=== PATIENT | male | born 1975 | race Caucasian/White ===

== ENCOUNTER 2017-06-08 13:16 | Emergency (ER) | payer BC, SELFPAY ==
[2017-06-08 13:31] VITALS: BP 123/71; PULSE 103; RESP 18; TEMP 37.1; O2SAT 99; BMI 36.5
--- NOTE | 2017-06-08 14:14 | HMH.EDUTC ---
[facility] [place] Disposition Clinical Impression: Laryngitis Disposition: Home, Self-Care Condition on Discharge: Good Instructions: DI for Laryngitis Additional Instructions: * No sign of bacterial infection. Likely viral. Virus can take 7-14 days to run their course * Monitor Temp. FU if fever develops * Encourage fluids, water, gatorade, powerade, pedialyte if infant/toddler/child * warm salt water gargles * warm fluids * sore throat lozenges * humidifier/vaporizer * * Your throat swab was sent for culture. Those results are typically sent to your primary care. Be sure to follow up in 2-3 days if no improvement so they can review those results and treat if necessary. If you don't have primary care, I recommend you get one but in the mean time, you will have to return to a walk in clinic. Referrals: Pearl Sears PA [Primary Care Provider] - (IMMEDIATELY for new or worsening symptoms OR no noticeable improvement over the next 48-72 hours. 911 for difficulty breathing or swallowing.) Forms: Work/School Release Time of Disposition: 14:29 Medical Decision Making Vital Signs: 06/08/17 13:31 Temperature 98.8 F Temperature Source Temporal Artery Scan Pulse Rate [Brachial] 103 H Respiratory Rate 18 Blood Pressure [Right Arm] 123/71 Blood Pressure Mean [Right Arm] 88 Blood Pressure Source [Right Arm] Automatic Cuff 02 Sat by Pulse Oximetry 99 Oxygen Delivery Method Room Air - Lab Data Lab Results 06/08/17 13:37: Strep Scn Rapid Clinic [facility] Orders (Tests/Meds): ORDERS Category Date Time Status Strep Screen Confirmation Stat Micro 06/08/17 13:37 Received - Shya Inquiry Pt receiving controlled substance: No [facility] [place] HPI - General Stated complaint: Sore Throat Time Seen by Provider: 06/08/17 14:05 Mode of Arrival: Ambulatory Source of Information: Patient Limitations: No Limitations Description of Symptoms (Recalled from Triage Doc. by RN): SORE THROAT THAT STARTED YESTERDAY HEENT Symptoms (Recalled from RN notes): Yes Resp Symptoms (Recalled from RN notes): No Skin Symptoms (Recalled from RN notes): No MS Symptoms (Recalled from RN notes): No Functional Status (Recalled from RN notes): NA - History of Present Illness Provider Complaint: c/o hoarse voice. Wokeup hoarse yesterday morning. I couldn't even talk . thinks throat might have felt sore but not really sure . Feels no better although seems to be only minimally hoarse today. Reports he went to work and was trying to talk loud and scream and that is when he noticed the hoarseness again today. Cough drops haven't helped. No known sick contacts. Needs work excuse for today. - Related Data Home Medications Medication Instructions Recorded Confirmed Lisinopril [Lisinopril 10mg Tab] 10 mg PO DAILY 06/08/17 06/08/17 Allergies Allergy/AdvReac Type Severity Reaction Status Date / Time INGREDIENT: NO KNOWN - NO Allergy Unknown Uncoded 05/22/17 14:31 KNOWN DRUG ALLERGY - Worker's Comp Is this a Worker's Comp case?: No [facility] History I have reviewed the patient's past medical history: Yes Medical History: Reports:: Hypertension, Kidney Stones Denies:: Diabetes Mellitus Type 1, Diabetes Mellitus Type 2 Other Surgeries: Yes: Other (unknown type for kidney stones) - *Social History Smoking Status: Current every day smoker Tobacco Type: cigarettes Alcohol Intake: never - Psychiatric History Expresses thoughts of harming self/others: None Suicide Plan Description: No Plan ROS Obtained: Yes Appropriate systems reviewed & no add complaints except as noted - Constitutional Denies anorexia, Denies body ache(s), Denies chills, Denies fatigue, Denies fever(s) - Eyes Denies change in vision, Denies discharge - ENT Reports change in voice, Reports hoarseness, Reports post nasal drip, Reports sore throat, Denies abnormal hearing, Denies dizziness, Denies ear pain, Denies mouth pain, Denies nasal congestion, Denies riki
--- NOTE | 2017-06-08 14:19 | ED_ITS ---
[facility] [place] Disposition Clinical Impression: Laryngitis Disposition: Home, Self-Care Condition on Discharge: Good Instructions: DI for Laryngitis Additional Instructions: * No sign of bacterial infection. Likely viral. Virus can take 7-14 days to run their course * Monitor Temp. FU if fever develops * Encourage fluids, water, gatorade, powerade, pedialyte if infant/toddler/ child * warm salt water gargles * warm fluids * sore throat lozenges * humidifier/vaporizer * * Your throat swab was sent for culture. Those results are typically sent to your primary care. Be sure to follow up in 2-3 days if no improvement so they can review those results and treat if necessary. If you don't have primary care , I recommend you get one but in the mean time, you will have to return to a walk in clinic. Referrals: Pearl Sears PA [Primary Care Provider] - (IMMEDIATELY for new or worsening symptoms OR no noticeable improvement over the next 48-72 hours. 911 for difficulty breathing or swallowing.) Forms: Work/School Release Time of Disposition: 14:29 Medical Decision Making Vital Signs: 06/08/17 13:31 Temperature 98.8 F Temperature Source Temporal Artery Scan Pulse Rate [Brachial] 103 H Respiratory Rate 18 Blood Pressure [Right Arm] 123/71 Blood Pressure Mean [Right Arm] 88 Blood Pressure Source [Right Arm] Automatic Cuff 02 Sat by Pulse Oximetry 99 Oxygen Delivery Method Room Air - Lab Data Lab Results 06/08/17 13:37: Strep Scn Rapid Clinic [facility] Orders (Tests/Meds): ORDERS Category Date Time Status Strep Screen Confirmation Stat Micro 06/08/17 13:37 Received - Shay Inquiry Pt receiving controlled substance: No [facility] [place] HPI - General Stated complaint: Sore Throat Time Seen by Provider: 06/08/17 14:05 Mode of Arrival: Ambulatory Source of Information: Patient Limitations: No Limitations Description of Symptoms (Recalled from Triage Doc. by RN): SORE THROAT THAT STARTED YESTERDAY HEENT Symptoms (Recalled from RN notes): Yes Resp Symptoms (Recalled from RN notes): No Skin Symptoms (Recalled from RN notes): No MS Symptoms (Recalled from RN notes): No Functional Status (Recalled from RN notes): NA - History of Present Illness Provider Complaint: c/o hoarse voice. Wokeup hoarse yesterday morning. I couldn 't even talk . thinks throat might have felt sore but not really sure . Feels no better although seems to be only minimally hoarse today. Reports he went to work and was trying to talk loud and scream and that is when he noticed the hoarseness again today. Cough drops haven't helped. No known sick contacts. Needs work excuse for today. - Related Data Home Medications Medication Instructions Recorded Confirmed Lisinopril [Lisinopril 10mg Tab] 10 mg PO DAILY 06/08/17 06/08/17 Allergies Allergy/AdvReac Type Severity Reaction Status Date / Time INGREDIENT: NO KNOWN - NO Allergy Unknown Uncoded 05/22/17 14:31 KNOWN DRUG ALLERGY - Worker's Comp Is this a Worker's Comp case?: No [facility] History I have reviewed the patient's past medical history: Yes Medical History: Reports:: Hypertension, Kidney Stones Denies:: Diabetes Mellitus Type 1, Diabetes Mellitus Type 2 Other Surgeries: Yes: Other (unknown type for kidney stones) - *Social History Smoking Status: Current every day
== END 2017-06-08 14:31 | disposition home or self-care (01) ==
PROVIDERS: Emergency Provider Nurse Practitioner Family; PCP Physician Assistant
DX: J04.0 Acute laryngitis (principal); Z79.899 Other long term (current) drug therapy; I10 Essential (primary) hypertension; F17.210 Nicotine dependence, cigarettes, uncomplicated
CPT/HCPCS: 87430; 87880; 99202

== ENCOUNTER → 2017-07-30 07:27 | Outpatient (CLI) | payer BC, SELFPAY ==
--- NOTE | 2017-07-30 07:33 | CA_ITS ---
PROCEDURE: 2-D M-mode and color Doppler study INDICATIONS FOR THE TEST: Chest pain COPD Heart Murmur Tobacco SmokingXX Palpitations Fatigue Syncope Edema HypertensionXDiabetes Mellitus Rheumatic Fever SOB LOPEZ ObesityXHyperlipidemia Family History HD Additional History PATIENT INFORMATION HEIGHT: 69 WEIGHT:270 GENDER: Male B/P:170/90 2-D/M-MODE INTERPRETATION: 2-D MEASUREMENTS OBSERVED VALUES IN CMS Right Ventricular Dimension (RVDd) 2.8 Interventricular Septum (Thickness)(IVsd) .8 Left Ventricular Internal Dimensions(LVIDd) 4.8 Left Ventricular Posterior Wall (Thickness)(LVPWd) 1.0 Aortic Root 3.5 Aortic Cusp Separation 1.7 Left Atrial Dimensions (LAD) 2.1 2D 1. Left atrium is qualitatively mildly enlarged, left ventricle is normal size, there is no concentric left ventricular hypertrophy, visually estimated ejection fraction approximately 45% with no obvious regional wall motion abnormality. 2. The right atrium and right ventricle are mildly enlarged with normal contractility. 3. The aortic valve is minimally thickened and fibrosed. 4. The mitral and tricuspid valve leaflets are minimally thickened. 5. The pulmonic valve is poorly visualized. 6. There is trivial pericardial effusion noted. DOPPLER INTERROGATION: Doppler interrogation of the aortic, mitral and tricuspid valvular presence of mild mitral and tricuspid regurgitation, tricuspid regurgitant jet velocity is insufficient for calculation of the right ventricular systolic pressure, grade 1 diastolic dysfunction seen with tissue Doppler evidence of raised left atrial pressure. CONCLUSION: 1. Mild biatrial enlargement, normal left ventricular size, visually estimated ejection fraction of 45% with no obvious regional wall motion abnormality, grade 1 diastolic dysfunction seen with tissue Doppler evidence of raised left atrial pressure. 2. Mildly enlarged right atrium and right ventricle, contractility of the right ventricle is normal. 3. Mild mitral and tricuspid regurgitation 4. Trivial pericardial effusion noted.
[2017-07-30 09:49] LABS: Anion Gap 10.5 mEq/L (5-15); Blood Urea Nitrogen 7 mg/dL (7-18); Carbon Dioxide 33 mmol/L (21.0-32.0); Chloride 102 mmol/L (98-107); Creatinine,Serum 0.91 mg/dL (0.70-1.30); Estimated Glomerular Filt Rate 92 ml/min (>60); GFR (African American) 112 ML/MIN (>60); Glucose 136 mg/dL (74-106); Potassium 4.5 mmoL/L (3.5-5.1); Sodium 141 mmol/L (136-145)
== END ==
PROVIDERS: Family Provider Family Medicine; PCP Physician Assistant; Visit Provider Internal Medicine Cardiovascular Disease
DX: I10 Essential (primary) hypertension (principal); R00.0 Tachycardia, unspecified
CPT/HCPCS: 36415; 80048; 93306

== ENCOUNTER → 2017-10-02 10:54 | Outpatient (CLI) | payer BC, SELFPAY ==
--- NOTE | 2017-10-02 11:17 | XR_ITS ---
XR chest 2V HISTORY: ITS.REASON: Persistent cough ORDERING PHYSICIAN: AIDA Harmon PATIENT AGE: 41 years FINDINGS: The cardiomediastinal silhouette and pulmonary vascularity are within normal limits. No lobar consolidation or collapse is evident. There is an 8 mm opacity in the left perihilar region which may be due to vascular overlap and may be confirmed with follow-up. The remaining lungs are clear. No acute bony anomalies. IMPRESSION: 1. No acute finding. 2. Possible left perihilar nodule versus summation artifact. Consider follow-up radiograph to confirm stability
[2017-10-02 14:08] LABS: Anion Gap 12.5 mEq/L (5-15); Blood Urea Nitrogen 12 mg/dL (7-18); Carbon Dioxide 29 mmol/L (21.0-32.0); Chloride 100 mmol/L (98-107); Creatinine,Serum 0.99 mg/dL (0.70-1.30); Estimated Glomerular Filt Rate 84 ml/min (>60); GFR (African American) 101 ML/MIN (>60); Glucose 147 mg/dL (74-106); Potassium 3.5 mmoL/L (3.5-5.1); Sodium 138 mmol/L (136-145)
== END ==
PROVIDERS: PCP Physician Assistant; Visit Provider Physician Assistant
DX: E87.6 Hypokalemia (principal); R05 Cough
CPT/HCPCS: 71046; 80048

== ENCOUNTER → 2018-01-03 11:44 | Outpatient (CLI) | payer BC, SELFPAY ==
[2018-01-03 14:41] LABS: Blood Urea Nitrogen 10 mg/dL (7-18); Carbon Dioxide 26 mmol/L (21.0-32.0); Chloride 99 mmol/L (98-107); Creatinine,Serum 1.11 mg/dL (0.70-1.30); Estimated Glomerular Filt Rate 73 ml/min (>60); GFR (African American) 88 ML/MIN (>60); Sodium 136 mmol/L (136-145)
[2018-01-03 14:48] LABS: Glucose 418 mg/dL (74-106)
== END ==
PROVIDERS: Family Provider Family Medicine; PCP Physician Assistant; Visit Provider Physician Assistant
DX: R25.2 Cramp and spasm (principal)
CPT/HCPCS: 36415; 80048

== ENCOUNTER → 2018-01-04 15:24 | Outpatient (CLI) | payer BC, SELFPAY ==
[2018-01-04 17:10] LABS: Basophils % 0.4 % (0.1-2.0); Eosinophils # 0.1 K/mm3 (0.0-0.4); Eosinophils % 1.5 % (0.1-12.0); Hematocrit 47.2 % (42.0-52.0); Hemoglobin 15.7 g/dL (14.1-18.0); Mean Corpuscular HGB Conc 33.3 g/dL (31.8-35.4); Mean Corpuscular Hemoglobin 30.7 pg (27.0-31.2); Mean Corpuscular Volume 92.1 fl (80-94); Mean Platelet Volume 10.3 fl (7.4-10.4); Monocytes # 0.6 K/mm3 (0.1-1.0); Monocytes % 6.2 % (1.7-9.3); Neutrophils # 6.4 K/mm3 (1.8-7.8); Neutrophils % 69.9 % (37.0-80.0); Platelet Count 246 K/mm3 (142-424); Red Blood Count 5.13 M/mm3 (4.60-6.20); Red Cell Distribution Width 12.7 % (11.5-17.5); White Blood Count 9.2 K/mm3 (4.8-10.8)
[2018-01-04 17:37] LABS: Alanine Aminotransferase 173 U/L (12-78); Albumin Level 3.9 gm/dL (3.4-5.0); Albumin/Globulin Ratio 1.1 (1.1-1.8); Alkaline Phosphatase 132 U/L (46-116); Anion Gap 11.7 mEq/L (5-15); Aspartate Amino Transferase 133 U/L (15-37); Bilirubin,Total 1.5 mg/dL (0.2-1.0); Blood Urea Nitrogen 10 mg/dL (7-18); Calcium 9.1 mg/dL (8.5-10.1); Carbon Dioxide 26 mmol/L (21.0-32.0); Chloride 97 mmol/L (98-107); Chol/HDL Ratio 8.3 (1-3.5); Cholesterol 158 mg/dL (140-200); Estimated Glomerular Filt Rate 74 ml/min (>60); GFR (African American) 89 ML/MIN (>60); Globulin 3.5 gm/dl (1.3-3.2); HDL Cholesterol 19 mg/dL (27-67); LDL Cholesterol 73 mg/dL (0-130); Potassium 3.7 mmoL/L (3.5-5.1); Sodium 131 mmol/L (136-145); T4 (Thyroxine) 9.9 ug/dl (4.7-13.3); Total Protein,Serum 7.4 gm/dL (6.4-8.2); Triglycerides 330 mg/dL (30-200); VLDL Cholesterol 66 mg/dL (0-40)
[2018-01-04 17:45] LABS: Glucose 467 mg/dL (74-106)
[2018-01-04 18:03] LABS: Hemoglobin A1C 10.2 % (0.0-7.0)
[2018-01-06 16:09] LABS: Hep A Ab, IgM Negative (Negative); Hepatitis B Core Antibody IgM Negative (Negative); Hepatitis B Surface Antigen Negative (Negative)
[2018-01-06 20:32] LABS: Hepatitis C Antibody 0.1 s/co ratio (0.0-0.9); Microalbumin, Urine <3.0 ug/mL (Not Estab.)
== END ==
PROVIDERS: Visit Provider Nurse Practitioner Family
DX: R53.83 Other fatigue (principal); R25.2 Cramp and spasm; E11.9 Type 2 diabetes mellitus without complications; R73.9 Hyperglycemia, unspecified
CPT/HCPCS: 80053; 80061; 80074; 82043; 83036; 84436; 84443; 85025

== ENCOUNTER → 2018-01-10 13:10 | Outpatient (CLI) | payer BC, SELFPAY | PROVIDERS: Family Provider Family Medicine; PCP Physician Assistant; Visit Provider Nurse Practitioner Family | DX: Z71.3 Dietary counseling and surveillance (principal); E11.9 Type 2 diabetes mellitus without complications | CPT/HCPCS: 97802; G0108 ==

== ENCOUNTER → 2018-01-18 11:54 | Outpatient (CLI) | payer BC, SELFPAY ==
[2018-01-18 11:55] LABS: Adenovirus F 40/41, stool Not Detected (NotDetected); Astrovirus Not Detected (NotDetected); Campylobacter Not Detected (NotDetected); Clostridium Difficile A/B, PCR Not Detected (NotDetected); Cryptosporidium Not Detected (NotDetected); Cyclospora Cayetanesis Not Detected (NotDetected); Entamoeba histolytica Not Detected (NotDetected); Enteroaggregative E coli Not Detected (NotDetected); Enteropathogenic E coli Not Detected (NotDetected); Enterotoxigenic E coli Not Detected (NotDetected); Giardia lamblia Not Detected (NotDetected); Norovirus Not Detected (NotDetected); Plesimonas Shigalloides, PCR Not Detected (NotDetected); Rotavirus A Not Detected (NotDetected); Salmonella, PCR Not Detected (NotDetected); Sapovirus Not Detected (NotDetected); Shiga-like toxin E coli Not Detected (NotDetected); Shigella Enterovasive E coli Not Detected (NotDetected); Vibrio Cholerae Not Detected (NotDetected); Vibrio, PCR Not Detected (NotDetected); Yersinia Entercolitica, PCR Not Detected (NotDetected)
== END ==
PROVIDERS: Nurse Practitioner Family; Visit Provider Nurse Practitioner Family
DX: R19.7 Diarrhea, unspecified (principal)
CPT/HCPCS: 87507

== ENCOUNTER → 2018-02-07 10:41 | Outpatient (CLI) | payer BC, SELFPAY ==
--- NOTE | 2018-02-07 10:44 | XR_ITS ---
XR lumbar spine 2-3V Ordering Physician: Kaden Alexander Patient Age: 42 years: Male HISTORY: ITS.REASON: Low back pain . Mid back pain lower back from coughing TECHNIQUE: AP lateral lumbar spine COMPARISON :CT abdomen 09/29/2017 FINDINGS The lumbar vertebral bodies are intact with no compression fracture. No subluxation. The pedicles transverse processes, SI joints appear satisfactory. There is mild narrowing at the L5/S1 level with diffuse mild posterior posterior spurring at L5/S1. The previous CT study from September 2017 showed a modest hard disc to the right at this level which encroaches upon the right recess and right foramen. . Only minimal facet arthropathy at L5/S1, L4/5 noted otherwise. Sacrum unremarkable. IMPRESSION No acute findings on plain film. L5/S1 with Mild degenerative disc space narrowing and mild posterior ridging & spurring most evident to the right at L5/S1. Suggestion Minimal facet arthropathy L5/S1 and L4/5
== END ==
PROVIDERS: PCP Physician Assistant; Visit Provider Nurse Practitioner Family
DX: M54.5 Low back pain (principal)
CPT/HCPCS: 72100

== ENCOUNTER → 2018-04-13 07:21 | Outpatient (CLI) | payer BC, SELFPAY ==
[2018-04-13 08:13] LABS: Basophils % 0.5 % (0.1-2.0); Eosinophils # 0.2 K/mm3 (0.0-0.4); Eosinophils % 1.9 % (0.1-12.0); Hematocrit 45.8 % (42.0-52.0); Hemoglobin 15.7 g/dL (14.1-18.0); Lymphocytes # 1.6 K/mm3 (0.7-4.5); Lymphocytes % 19.4 % (10-50); Mean Corpuscular HGB Conc 34.2 g/dL (31.8-35.4); Mean Corpuscular Hemoglobin 32.2 pg (27.0-31.2); Mean Corpuscular Volume 94.2 fl (80-94); Mean Platelet Volume 8.3 fl (7.4-10.4); Monocytes # 0.5 K/mm3 (0.1-1.0); Monocytes % 6.2 % (1.7-9.3); Neutrophils # 5.8 K/mm3 (1.8-7.8); Neutrophils % 72.1 % (37.0-80.0); Platelet Count 260 K/mm3 (142-424); Red Blood Count 4.87 M/mm3 (4.60-6.20); Red Cell Distribution Width 12.8 % (11.5-17.5)
[2018-04-13 11:26] LABS: Alanine Aminotransferase 53 U/L (12-78); Albumin Level 3.7 gm/dL (3.4-5.0); Albumin/Globulin Ratio 1.1 (1.1-1.8); Alkaline Phosphatase 108 U/L (46-116); Anion Gap 13.1 mEq/L (5-15); Aspartate Amino Transferase 29 U/L (15-37); Bilirubin,Total 1.4 mg/dL (0.2-1.0); Blood Urea Nitrogen 8 mg/dL (7-18); Calcium 8.8 mg/dL (8.5-10.1); Carbon Dioxide 27 mmol/L (21.0-32.0); Chloride 102 mmol/L (98-107); Cholesterol 185 mg/dL (140-200); Creatinine,Serum 0.97 mg/dL (0.70-1.30); Estimated Glomerular Filt Rate 85 ml/min (>60); GFR (African American) 103 ML/MIN (>60); Globulin 3.4 gm/dl (1.3-3.2); Glucose 91 mg/dL (74-106); HDL Cholesterol 37 mg/dL (27-67); LDL Cholesterol 126 mg/dL (0-130); Potassium 4.1 mmoL/L (3.5-5.1); Sodium 138 mmol/L (136-145); T4 (Thyroxine) 10.1 ug/dl (4.7-13.3); Thyroid Stimulating Hormone 1.18 uIU/ml (0.358-3.740); Total Protein,Serum 7.1 gm/dL (6.4-8.2); Triglycerides 108 mg/dL (30-200); VLDL Cholesterol 22 mg/dL (0-40)
[2018-04-13 11:54] LABS: Hemoglobin A1C 5.9 % (0.0-7.0)
[2018-04-15 16:20] LABS: Vitamin D 25 Hydroxy 24.7 ng/mL (30.0-100.0)
== END ==
PROVIDERS: Visit Provider Physician Assistant
DX: E11.9 Type 2 diabetes mellitus without complications (principal); I10 Essential (primary) hypertension
CPT/HCPCS: 36415; 80053; 80061; 82652; 83036; 84436; 84443; 85025

== ENCOUNTER → 2019-02-25 13:34 | Outpatient (CLI) | payer OTHER, SELFPAY ==
[2019-02-25 14:10] LABS: Basophils % 0.3 % (0.1-2.0); Eosinophils # 0.2 K/mm3 (0.0-0.4); Eosinophils % 1.6 % (0.1-12.0); Hematocrit 50.3 % (42.0-52.0); Hemoglobin 15.9 g/dL (14.1-18.0); Lymphocytes # 1.8 K/mm3 (0.7-4.5); Lymphocytes % 18.8 % (10-50); Mean Corpuscular HGB Conc 31.6 g/dL (31.8-35.4); Mean Corpuscular Hemoglobin 30.6 pg (27.0-31.2); Mean Platelet Volume 9.6 fl (7.4-10.4); Monocytes # 0.5 K/mm3 (0.1-1.0); Monocytes % 5.2 % (1.7-9.3); Neutrophils # 7.2 K/mm3 (1.8-7.8); Neutrophils % 74.2 % (37.0-80.0); Platelet Count 292 K/mm3 (142-424); Red Blood Count 5.19 M/mm3 (4.60-6.20); Red Cell Distribution Width 12.6 % (11.5-17.5); White Blood Count 9.7 K/mm3 (4.8-10.8)
[2019-02-25 14:24] LABS: Alanine Aminotransferase 82 U/L (12-78); Albumin Level 3.7 gm/dL (3.4-5.0); Alkaline Phosphatase 132 U/L (46-116); Anion Gap 18.1 mEq/L (5-15); Aspartate Amino Transferase 57 U/L (15-37); Bilirubin,Total 0.8 mg/dL (0.2-1.0); Blood Urea Nitrogen 7 mg/dL (7-18); Calcium 9.1 mg/dL (8.5-10.1); Carbon Dioxide 23 mmol/L (21.0-32.0); Chloride 101 mmol/L (98-107); Chol/HDL Ratio 5.4 (1-3.5); Cholesterol 190 mg/dL (140-200); Creatinine,Serum 0.82 mg/dL (0.70-1.30); Estimated Glomerular Filt Rate 103 ml/min (>60); GFR (African American) 125 ML/MIN (>60); Globulin 3.7 gm/dl (1.3-3.2); Glucose 123 mg/dL (74-106); HDL Cholesterol 35 mg/dL (27-67); LDL Cholesterol 127 mg/dL (0-130); Potassium 4.1 mmoL/L (3.5-5.1); Sodium 138 mmol/L (136-145); T4 (Thyroxine) 8.4 ug/dl (4.7-13.3); Thyroid Stimulating Hormone 1.56 uIU/ml (0.358-3.740); Total Protein,Serum 7.4 gm/dL (6.4-8.2); Triglycerides 138 mg/dL (30-200); VLDL Cholesterol 28 mg/dL (0-40)
[2019-02-25 15:12] LABS: Hemoglobin A1C 6.8 % (0.0-7.0)
[2019-02-26 10:49] LABS: Vitamin D 25 Hydroxy 29.5 ng/mL (30.0-100.0)
[2019-03-01 13:22] LABS: Folate 17.2 ng/mL (>3.0); Vitamin B12 438 pg/mL (232-1245)
== END ==
PROVIDERS: Visit Provider Physician Assistant
DX: E11.9 Type 2 diabetes mellitus without complications (principal); D64.9 Anemia, unspecified
CPT/HCPCS: 80053; 80061; 82607; 82652; 82746; 83036; 84436; 84443; 85025

== ENCOUNTER → 2019-03-05 07:20 | Outpatient (CLI) | payer OTHER, SELFPAY ==
--- NOTE | 2019-03-05 07:27 | US_ITS ---
APPROVED REPORT Exam Type: Ankle to Brachial Index Diamond Wheel Edger: Jasmine Pickens CRT Indications Claudication: Risk Factors Hypertension Pressures/Indices Right Indices Left Indices Brachial 139.00 mmHg Brachial 139.00 mmHg Low Thigh 148.00 mmHg 1.06 Low Thigh 147.00 mmHg 1.06 Calf 148.00 mmHg 1.06 Calf 148.00 mmHg 1.06 Ankle(PT) 169.00 mmHg 1.22 Ankle(PT) 166.00 mmHg 1.19 Ankle(DP) 156.00 mmHg 1.12 Ankle(DP) 163.00 mmHg 1.17 Digit 158.00 mmHg 1.14 Digit 115.00 mmHg 0.83 Findings R ROSA 1.2 L ROSA 1.2 Normal waveforms and pulses. Conclusion Normal appearing resting noninvasive lower extremity arterial study. Electronically signed by : Ibrahima Kraus MD 03/10/2019 19:25:23
== END ==
PROVIDERS: PCP Emergency Medicine; Visit Provider Physician Assistant
DX: M79.671 Pain in right foot (principal); M79.672 Pain in left foot
CPT/HCPCS: 93923

== ENCOUNTER → 2019-03-10 10:31 | Outpatient (POV) | payer OTHER, SELFPAY | PROVIDERS: Visit Provider Specialist | DX: G57.93 Unspecified mononeuropathy of bilateral lower limbs (principal) | CPT/HCPCS: 95886; 95909 ==

== ENCOUNTER → 2019-05-05 16:44 | Outpatient (CLI) | payer OTHER, SELFPAY ==
[2019-05-05 17:21] LABS: Basophils % 0.3 % (0.1-2.0); Eosinophils # 0.3 K/mm3 (0.0-0.4); Hematocrit 47.1 % (42.0-52.0); Lymphocytes # 1.5 K/mm3 (0.7-4.5); Lymphocytes % 16.4 % (10-50); Mean Corpuscular HGB Conc 31.9 g/dL (31.8-35.4); Mean Corpuscular Hemoglobin 30.8 pg (27.0-31.2); Mean Corpuscular Volume 96.5 fl (80-94); Mean Platelet Volume 9.5 fl (7.4-10.4); Monocytes # 0.5 K/mm3 (0.1-1.0); Monocytes % 4.9 % (1.7-9.3); Neutrophils % 75.3 % (37.0-80.0); Platelet Count 275 K/mm3 (142-424); Red Blood Count 4.88 M/mm3 (4.60-6.20); Red Cell Distribution Width 12.5 % (11.5-17.5); White Blood Count 9.3 K/mm3 (4.8-10.8)
[2019-05-05 19:46] LABS: Hemoglobin A1C 7.4 % (0.0-7.0)
[2019-05-05 20:17] LABS: Alanine Aminotransferase 65 U/L (12-78); Albumin Level 3.4 gm/dL (3.4-5.0); Alkaline Phosphatase 142 U/L (46-116); Anion Gap 19.3 mEq/L (5-15); Aspartate Amino Transferase 45 U/L (15-37); Bilirubin,Total 0.7 mg/dL (0.2-1.0); Blood Urea Nitrogen 8 mg/dL (7-18); Calcium 8.6 mg/dL (8.5-10.1); Carbon Dioxide 23 mmol/L (21.0-32.0); Chloride 100 mmol/L (98-107); Cholesterol 184 mg/dL (140-200); Creatinine,Serum 0.92 mg/dL (0.70-1.30); Estimated Glomerular Filt Rate 90 ml/min (>60); GFR (African American) 109 ML/MIN (>60); Globulin 3.3 gm/dl (1.3-3.2); Glucose 233 mg/dL (74-106); Potassium 4.3 mmoL/L (3.5-5.1); Sodium 138 mmol/L (136-145); T4 (Thyroxine) 8.4 ug/dl (4.7-13.3); Thyroid Stimulating Hormone 1.99 uIU/ml (0.358-3.740); Total Protein,Serum 6.7 gm/dL (6.4-8.2); Triglycerides 239 mg/dL (30-200); VLDL Cholesterol 48 mg/dL (0-40)
[2019-05-05 22:34] LABS: Chol/HDL Ratio 5.9 (1-3.5); HDL Cholesterol 31 mg/dL (27-67); LDL Cholesterol 105 mg/dL (0-130)
[2019-05-07 14:10] LABS: Vitamin D 25 Hydroxy 20.6 ng/mL (30.0-100.0)
== END ==
PROVIDERS: Visit Provider Physician Assistant
DX: E11.9 Type 2 diabetes mellitus without complications (principal); E55.9 Vitamin D deficiency, unspecified; Z79.84 Long term (current) use of oral hypoglycemic drugs
CPT/HCPCS: 80053; 80061; 82652; 83036; 84436; 84443; 85025

== ENCOUNTER → 2019-07-31 07:30 | Outpatient (CLI) | payer OTHER, SELFPAY ==
[2019-07-31 08:43] LABS: Basophils # 0.1 K/mm3 (0-0.2); Basophils % 0.5 % (0.1-2.0); Eosinophils # 0.2 K/mm3 (0.0-0.4); Hematocrit 49.1 % (42.0-52.0); Hemoglobin 15.5 g/dL (14.1-18.0); Lymphocytes # 1.9 K/mm3 (0.7-4.5); Lymphocytes % 19.9 % (10-50); Mean Corpuscular HGB Conc 31.5 g/dL (31.8-35.4); Mean Corpuscular Hemoglobin 30.6 pg (27.0-31.2); Mean Platelet Volume 9.1 fl (7.4-10.4); Monocytes # 0.5 K/mm3 (0.1-1.0); Monocytes % 5.2 % (1.7-9.3); Neutrophils # 6.8 K/mm3 (1.8-7.8); Neutrophils % 72.3 % (37.0-80.0); Platelet Count 275 K/mm3 (142-424); Red Blood Count 5.06 M/mm3 (4.60-6.20); White Blood Count 9.4 K/mm3 (4.8-10.8)
[2019-07-31 10:27] LABS: Chloride 101 mmol/L (98-107); Sodium 137 mmol/L (136-145)
[2019-07-31 10:29] LABS: Alanine Aminotransferase 69 U/L (12-78); Aspartate Amino Transferase 46 U/L (17-59); Blood Urea Nitrogen 9 mg/dl (9-20); Estimated Glomerular Filt Rate 106 ml/min (>60); GFR (African American) 128 ML/MIN (>60)
[2019-07-31 10:30] LABS: Albumin Level 4.2 g/dl (3.5-5.0); Albumin/Globulin Ratio 1.4 (1.1-1.8); Alkaline Phosphatase 108 U/L (38-126); Bilirubin,Total 0.9 mg/dl (0.2-1.3); Calcium 9.6 mg/dl (8.4-10.2); Carbon Dioxide 27 mmol/L (22.0-30.0); Chol/HDL Ratio 5.6 (1-3.5); Cholesterol 192 mg/dl (140-200); Globulin 2.9 g/dL (1.3-3.2); Glucose 139 mg/dl (74-100); HDL Cholesterol 34 mg/dl (40-60); Total Protein,Serum 7.1 g/dl (6.3-8.2); Triglycerides 186 mg/dl (30-150); VLDL Cholesterol 37 mg/dL (0-40)
[2019-07-31 10:41] LABS: Direct LDL Cholesterol 136.06 mg/dL (100-129)
[2019-07-31 10:47] LABS: T4 (Thyroxine) 7.7 ug/dl (5.53-11.0)
[2019-07-31 11:00] LABS: Thyroid Stimulating Hormone 1.98 uIU/mL (0.465-4.68)
[2019-07-31 14:16] LABS: Hemoglobin A1C 6.8 % (4.0-6.0)
[2019-08-01 10:18] LABS: Vitamin D 25 Hydroxy 39.9 ng/mL (30.0-100.0)
== END ==
PROVIDERS: Visit Provider Physician Assistant
DX: E11.9 Type 2 diabetes mellitus without complications (principal); Z79.84 Long term (current) use of oral hypoglycemic drugs
CPT/HCPCS: 36415; 80053; 80061; 82652; 83036; 84436; 84443; 85025

== ENCOUNTER → 2019-08-05 14:16 | Outpatient (CLI) | payer OTHER, SELFPAY ==
[2019-08-08 10:31] LABS: Microalbumin, Urine 9.8 ug/mL (Not Estab.)
== END ==
PROVIDERS: Visit Provider Physician Assistant
DX: E11.9 Type 2 diabetes mellitus without complications (principal); Z79.84 Long term (current) use of oral hypoglycemic drugs
CPT/HCPCS: 82043

== ENCOUNTER → 2019-11-27 14:00 | Outpatient (CLI) | payer OTHER, SELFPAY ==
--- NOTE | 2019-11-27 14:00 | MR_ITS ---
PROCEDURE: MR LUMBAR SPINE WO CON CLINICAL INDICATION: LBP COMPARISON: No exams were available for comparison TECHNIQUE: Standard multiplanar multiecho sequences are performed without contrast. 3-D MIP and myelographic images are also rendered and reviewed FINDINGS: There is uniform fat marrow signal hyperintensity. The disc spaces are intact. Spinal cord and conus medullaris is unremarkable. At the L1-2 disc space there is no significant spinal stenosis. At the L2-3 disc space there is no significant spinal stenosis. At the L3-4 disc space there is no significant spinal stenosis. At the L4-5 disc space there is mild facet arthropathy and a broad-based bulging disc producing mild left neural foraminal stenosis. At the L5-S1 disc space there is an eccentric broad-based disc osteophyte complex extending into the right neural foramina and mild facet arthropathy. This produces mild central canal, moderate right neural foraminal and moderate right lateral recess stenosis The paralumbar structures are unremarkable. IMPRESSION: L4-5 and L5-S1 spinal stenosis as described above. Dictated by: Wilfredo Arciniega 11/27/2019 15:12 Electronically signed by Wilfredo Arciniega in [place] 11/27/2019 15:12
== END ==
PROVIDERS: PCP Physician Assistant; Visit Provider Physician Assistant
DX: M51.36 Other intervertebral disc degeneration, lumbar region (principal); M25.78 Osteophyte, vertebrae
CPT/HCPCS: 72148; 76376

== ENCOUNTER → 2019-12-11 08:53 | Outpatient (POV) | payer OTHER, SELFPAY ==
[2019-12-11 09:31] VITALS: BP 139/42; PULSE 80; RESP 18; TEMP 36.8; O2SAT 99; BMI 38.7
--- NOTE | 2019-12-11 09:52 | HMH.PMCON ---
Assessment and Plan (1) Degenerative joint disease (DJD) of lumbar spine Current visit: Yes Status: Chronic Category: Medical Code(s): M47.816 - Spondylosis without myelopathy or radiculopathy, lumbar region (2) Lumbar radiculopathy Current visit: Yes Status: Chronic Category: Medical Code(s): M54.16 - Radiculopathy, lumbar region (3) Facet arthropathy Current visit: Yes Status: Chronic Category: Medical Code(s): M47.819 - Spondylosis without myelopathy or radiculopathy, site unspecified - Assessment and plan all Dx Assessment and Plan for all problems:: We will start the patient with physical therapy. He has not had any recent physical therapy. We will also plan for a lumbar epidural steroid injection at L4-L5. He is not on any anticoagulation therapy. For further discussion of his symptoms, I think it would be beneficial to start the patient on gabapentin 100 mg 1 tablet p.o. daily. We will see the patient back in the clinic after his injection to reassess his symptoms. He has been instructed to contact clinic if he has any concerns before his next appointment. The patient and I specifically discussed risk factors for COVID19. These risks include, but are not limited to age greater than 60, heart or lung disease, diabetes, immunosuppression, and travel. We also discussed NSAIDs may worsen COVID19 infection or symptoms. Patient should not use NSAIDs to treat COVID19 signs or symptoms. Patient was also informed that any type of corticosteroid of any form (oral or injection) will decrease the patient's immune system response and may increase the likelihood of COVID19 infection [address] symptoms[address] Hayes has reviewed this note and agrees with this plan of care. This note was dictated using voice recognition software and make contain errors or omissions. HPI - Data of Consult Patient: new to practice Consult date: 12/11/19 Requesting Physician: Kathrin Kearns APRN Primary Care Provider: AIDA Isaac - Consult Narrative Reason for consult: Low back pain, bilateral leg numbness and tingling History of present illness: Mr. Grimaldo is a 44 year old male who presents today for consultation for low back pain with radiation into his bilateral lower extremities causing numbness and tingling. Patient says he has had this pain for approximately 4 years. 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 Patient says he is wanted to go back to work since losing the job, and is actively seeking employment. Patient says that he attributes much of his pain due to wear and tear on his back from working in the factory for many years. He says his pain is in his mid back with radiation into his bilateral low back with numbness and tingling in his bilateral lower extremities. Patient has not tried physical therapy. He does say that his primary care provider has given him steroid injections in his hips which have proven to give him up to 2 weeks of relief. Does rate his pain a 4 out of 10 today. CC: Kathrin Kearns APRN [facility] History I have reviewed the patient's past medical history: Yes Medical History: Reports:: Diabetes Mellitus Type 2, Gastroesophageal Reflux Disease(GERD), Hyperlipidemia, Hypertension, Kidney Stones Denies:: Cancer, Diabetes Mellitus Type 1, MRSA *Have you ever received a pneumonia vaccine?: Yes *Have you received a flu vaccine this season?: Yes Other Surgeries: Yes: No Previous Surgery, Other Amputation: No Fractures: Yes - *Social History Smoking Status: Never smoker Tobacco Type: cigarettes # Packs/Day (cigarettes): 1 #Yrs smoked (if former smoker): 5 Alcohol Intake: never Alcohol Intake Frequency:: other Substance Use Type: denies use *Occupational Status:: other Housing: house Household Members: family *Travel in the last 8 weeks: None Family Hx:: Unable to obtain Review of Systems - Review of Systems Review of Syst
== END ==
PROVIDERS: PCP Physician Assistant; Visit Provider Clinical Nurse Specialist Family Health
DX: M47.896 Other spondylosis, lumbar region (principal); M54.16 Radiculopathy, lumbar region
CPT/HCPCS: 99202

== ENCOUNTER 2019-12-26 09:12 | Day surgery (SDC) | payer OTHER, SELFPAY ==
[2019-12-26 09:26] VITALS: BP 126/90; PULSE 82; RESP 18; TEMP 36.8; O2SAT 98; BMI 39.9
[2019-12-26 10:16] VITALS: BP 144/93; PULSE 91; RESP 18
--- NOTE | 2019-12-26 10:16 | HMH.PMPROC ---
- Procedure Date: 12/26/19 Time: 10:16 Anesthesiologist:: Paul Hayes MD Complications:: None Pre-procedure Diagnosis:: Degenerative disc disease of lumbar spine with lumbar radiculopathy symptoms Post-procedure Diagnosis:: Same Indications for Procedure:: This patient is a pleasant 44-year-old white male who we are treating for low back pain with lumbar radiculopathy symptoms. He has some increasing low back pain radiating into both hips and both legs. He was started on gabapentin which is helping. He has had some intramuscular steroid injections which is helped in the past. Will do lumbar epidural steroid injection today to see if this will help with his pain symptoms. Procedure Details:: Lumbar epidural steroid injection under fluoroscopy Informed consent was obtained and the risk and benefits of the procedure was explained to the patient. The patient was taken to the procedure room. The patient was placed prone on the procedure table. The patient was prepped and draped in sterile fashion. C-arm fluoroscopy was used to view the lumbar spine. Skin and subcutaneous tissues were anesthetized using lidocaine. I placed an 18-gauge epidural needle and advanced into the L4-L5 interspace using fluoroscopic guidance and [id number] to air. After confirmation of needle placement in the epidural space with dye I injected 2 mL of lidocaine 1.5% with Depo-Medrol 80 mg. Patient tolerated the procedure well with no complications. Plan and Disposition:: We will follow-up with him in 2 weeks. Will reevaluate symptoms at that time.
[2019-12-26 10:18] VITALS: BP 142/85; PULSE 85; RESP 18; O2SAT 98
[2019-12-26 10:28] VITALS: BP 124/74; PULSE 85; RESP 18; O2SAT 98
== END 2019-12-26 10:29 | disposition home or self-care (01) ==
LOC: SC.PAINP 09:13
PROVIDERS: PCP Physician Assistant; Visit Provider Anesthesiology
DX: M51.16 Intervertebral disc disorders with radiculopathy, lumbar region (principal); I10 Essential (primary) hypertension; E11.40 Type 2 diabetes mellitus with diabetic neuropathy, unspecified; Z88.1 Allergy status to other antibiotic agents; Z88.8 Allergy status to other drugs, medicaments and biological substances; Z79.899 Other long term (current) drug therapy
CPT/HCPCS: 62323; J1040; Q9966

== ENCOUNTER 2020-01-07 08:00 | Outpatient (RCR) | payer OTHER, SELFPAY ==
--- NOTE | 2019-12-17 09:43 | HMH.PTOPEV ---
PT Outpatient Evaluation Rehab PT Outpatient Evaluation Start: 12/17/19 08:54 Freq: Status: Active Protocol: Document 12/17/19 09:27 DAWNACHANTELLE (Rec: 12/17/19 09:43 DAWNACHANTELLE [id number]) Electronically Signed By Bryan Stroud PT 12/17/19 09:27 Outpatient Therapy Subjective History Subjective History This is the initial Physical Therapy evaluation for Norman Grimaldo. Pt is a 44 y/o male referred to PT for c/o LBP w/ intermittant bouts of BLE paresthesia. 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 Pt reports this bout began ~ March 2019. Pt reports no traumatic event, just states I was walking straight and my back locked up . Pt reports he has had intermittant pain since then. Pt reprots he has not worked since factory closed down and he is trying to find a job or get disability so he has some income. Chief Complaint Pain,Stiff,Paresthesia Symptom Type Throb,Sharp,Numbness,Tingling Symptoms Relieved By Rest/Positioning,Prescription Meds Symptoms Aggravated By Physical Activity,Lifting Prior Functional Limitations Lifting Current Functional Limitations Lifting,Recreation Activity, Bending/Stooping Symptom Description Intermittent Level of pain today (0-10) 4 Pain scale - at its best (0-10) 0 Pain scale - at its worst (0-10) 6 Lumbopelvic Eval Posture Thoracic Spine Posture Standing Position Increased Kyphosis Lumbar Spine Posture Standing Position Neutral Assistive device Assistive Devices None / NA Gait Observation General Gait Pattern Observation Wide Based Gait Palapation tenderness bilateral thoracic spinal tenderness No lumbar spinal tenderness Yes: PA L4/5 paraspinal tenderness Yes: R>L buttock tenderness No tenderness over symphysis pubis No Lumbar/Sacral Palpation Findings Tenderness,Trigger Point, Muscle Guarding Accessory Movement L-spine Vertebrae Accessory Movements Central P/A [place],Right P/A that Elicit Symptoms [place],Left P/A [place] L4 bilateral L5 bilateral Range of Motion Lumbar Spine Active Flexion Range of 20 c
== END 2020-01-07 09:10 | disposition home or self-care (01) ==
LOC: PT 08:00
PROVIDERS: PCP Physician Assistant; Visit Provider Clinical Nurse Specialist Family Health
DX: M54.5 Low back pain (principal)
CPT/HCPCS: 97010; 97012; 97014; 97110; 97163; G0283

== ENCOUNTER → 2020-01-15 08:29 | Outpatient (POV) | payer OTHER, SELFPAY ==
--- NOTE | 2020-01-15 08:46 | P.CONS_ITS ---
[facility] Pain Management SOAP Note Subjective:: Is a pleasant 44-year-old white male who presents today for follow-up after a lumbar epidural steroid injection. He has been treated for low back pain with lumbar radiculopathy symptoms. Patient states his pain is a 2 out of 10 today. He is much more functional after undergoing the injection. Patient says overall he is doing much better. Review of Systems General: No recent weight changes, no fever, no sleep disturbances Respiratory: No cough, no shortness of air, no recurring pulmonary infections Cardiovascular/peripheral vascular: No chest pain, no palpitations, no edema, no shortness of breath Gastrointestinal: No new onset incontinence, normal bowel movements reported Genitourinary: No new onset incontinence Musculoskeletal: [Intermittent low back pain, intermittent leg pain Psychiatric: Normal mood/affect Neurological: [Denies weakness in extremities], [denies balance issues] Objective:: Physical exam General: Alert and oriented x3, no acute distress, pleasant and cooperative, [on room air] Lungs: Respirations even and unlabored, symmetrical chest expansion Eyes: PERRL Musculoskeletal: Flexion and extension of lumbar spine somewhat guarded secondary to pain, deep tendon reflexes normal, strength in upper and lower extremities [5/5], [abnormal gait noted] Neurological: Speech clear, tool grinding technician equal, no gross sensory deficit Assessment:: Degenerative disc disease lumbar spine with lumbar radiculopathy symptoms Plan:: Overall the patient is doing well. He plans to follow-up with us in 3 months to reassess his symptoms. He has been instructed to contact clinic if he has any concerns before his next appointment. The patient and I specifically discussed risk factors for COVID19. These risks include, but are not limited to age greater than 60, heart or lung disease, diabetes, immunosuppression, and travel. We also discussed NSAIDs may worsen COVID19 infection or symptoms. Patient should not use NSAIDs to treat COVID19 signs or symptoms. Patient was also informed that any type of corticosteroid of any form (oral or injection) will decrease the patient's immune system response and may increase the likelihood of COVID19 infection and symptoms[address]. Hayes has reviewed this note and agrees with this plan of care. This note was dictated using voice recognition software and make contain errors or omissions. [facility] History I have reviewed the patient's past medical history: Yes Medical History: Reports:: Diabetes Mellitus Type 2, Gastroesophageal Reflux Disease(GERD), Hyperlipidemia, Hypertension, Kidney Stones Denies:: Cancer, Diabetes Mellitus Type 1, MRSA, Seizures *Have you ever received a pneumonia vaccine?: No *Have you received a flu vaccine this season?: No Other Medical History: Denies: Blood Transfusion Reaction Other Surgeries: Yes: No Previous Surgery, Other Amputation: No Fractures: Yes - *Social History Smoking Status: Never smoker Tobacco Type: cigarettes # Packs/Day (cigarettes): 1 #Yrs smoked (if former smoker): 5 Alcohol Intake: never Alcohol Intake Frequency:: other Substance Use Type: denies use *Occupational Status:: unemployed Housing: house Household Members: family *Travel in the last 8 weeks: None Family Hx:: Unable to obtain
[2020-01-15 09:42] VITALS: BP 132/78; PULSE 78; RESP 18; O2SAT 99; BMI 38.4
== END ==
PROVIDERS: PCP Physician Assistant; Visit Provider Clinical Nurse Specialist Family Health
DX: M51.16 Intervertebral disc disorders with radiculopathy, lumbar region (principal)
CPT/HCPCS: 99212

== ENCOUNTER → 2020-02-20 07:50 | Outpatient (CLI) | payer OTHER, SELFPAY ==
[2020-02-20 08:44] LABS: Basophils % 0.5 % (0.1-2.0); Eosinophils # 0.1 K/mm3 (0.0-0.4); Eosinophils % 1.7 % (0.1-12.0); Hematocrit 49.6 % (42.0-52.0); Hemoglobin 16.5 g/dL (14.1-18.0); Lymphocytes # 1.6 K/mm3 (0.7-4.5); Lymphocytes % 18.8 % (10-50); Mean Corpuscular HGB Conc 33.3 g/dL (31.8-35.4); Mean Corpuscular Hemoglobin 31.9 pg (27.0-31.2); Mean Corpuscular Volume 95.8 fl (80-94); Mean Platelet Volume 8.3 fl (7.4-10.4); Monocytes # 0.5 K/mm3 (0.1-1.0); Monocytes % 5.9 % (1.7-9.3); Neutrophils # 6.3 K/mm3 (1.8-7.8); Neutrophils % 73.2 % (37.0-80.0); Platelet Count 267 K/mm3 (142-424); Red Blood Count 5.17 M/mm3 (4.60-6.20); Red Cell Distribution Width 13.1 % (11.5-17.5); White Blood Count 8.5 K/mm3 (4.8-10.8)
[2020-02-20 10:00] LABS: Chloride 102 mmol/L (98-107); Potassium 4.3 mmoL/L (3.5-5.1); Sodium 140 mmol/L (136-145)
[2020-02-20 10:02] LABS: Blood Urea Nitrogen 8 mg/dl (9-20); Estimated Glomerular Filt Rate 92 ml/min (>60); GFR (African American) 111 ML/MIN (>60)
[2020-02-20 10:03] LABS: Alanine Aminotransferase 50 U/L (12-78); Albumin Level 4.3 g/dl (3.5-5.0); Albumin/Globulin Ratio 1.5 (1.1-1.8); Alkaline Phosphatase 109 U/L (38-126); Anion Gap 14.3 mEq/L (5-15); Aspartate Amino Transferase 41 U/L (17-59); Bilirubin,Total 1.3 mg/dl (0.2-1.3); Calcium 9.7 mg/dl (8.4-10.2); Carbon Dioxide 28 mmol/L (22.0-30.0); Chol/HDL Ratio 5.2 (1-3.5); Cholesterol 197 mg/dl (140-200); Globulin 2.9 g/dL (1.3-3.2); Glucose 114 mg/dl (74-100); HDL Cholesterol 38 mg/dl (40-60); Total Protein,Serum 7.2 g/dl (6.3-8.2); Triglycerides 182 mg/dl (30-150); VLDL Cholesterol 36 mg/dL (0-40)
[2020-02-20 10:15] LABS: Direct LDL Cholesterol 129.22 mg/dL (100-129)
[2020-02-20 10:17] LABS: T4 (Thyroxine) 9.4 ug/dl (5.53-11.0)
[2020-02-20 10:31] LABS: Thyroid Stimulating Hormone 2.02 uIU/mL (0.465-4.68)
[2020-02-20 10:34] LABS: Hemoglobin A1C 6.1 % (4.0-6.0)
[2020-02-20 10:47] LABS: 25-OH Vitamin D, Total 50.8 ng/mL (30-100)
== END ==
PROVIDERS: Visit Provider Physician Assistant
DX: E11.9 Type 2 diabetes mellitus without complications (principal); E55.9 Vitamin D deficiency, unspecified; E87.6 Hypokalemia; I10 Essential (primary) hypertension; M54.9 Dorsalgia, unspecified
CPT/HCPCS: 36415; 80053; 80061; 82306; 83036; 84436; 84443; 85025

== ENCOUNTER → 2020-04-15 08:46 | Outpatient (POV) | payer OTHER, SELFPAY ==
--- NOTE | 2020-04-15 08:57 | P.CONS_ITS ---
[facility] Pain Management SOAP Note Subjective:: Patient is a Pleasant 44-year-old white male who presents today for follow-up. Patient had a lumbar epidural steroid injection 4 months ago. He still is doing very well he rates his pain a 0 out of 10 he is much more functional he would like to follow-up on an as-needed basis. ROS General: no recent weight change, no fever, no sleep disturbances Respiratory: no cough, no shortness of air, no recurring pulmonary infections Cardiovascular/Peripheral Vascular: No chest pain, No palpitations, no edema, no shortness of breath. Gastrointestinal: no new onset incontinence, normal bowel movements reported Genitourinary: no new onset incontinence Musculoskeletal: Intermittent low back pain Psychiatric: normal mood/ affect Neurological: [denies new onset weakness in extremities], [denies new onset balance issues] Objective:: Physical Exam General: Alert and oriented x3, no acute distress, pleasant and cooperative, [on room air] Lungs: Resps E/U, Symmetrical chest expansion, Eyes: PERRL Musculoskeletal: Flexion and extension of lumbar spine somewhat guarded secondary to pain, deep tendon reflexes normal, strength in upper and lower extremities [5/5], normal gait noted Neurological: speech clear, commutator v ring assembler equal, no gross sensory deficits Assessment:: Degenerative disc disease lumbar spine lumbar radiculopathy Plan:: We will follow up with the patient on as-needed basis he has been instructed to call the office if he has any issues prior to his next appointment. Dr. Hayes has reviewed this note and agrees with this plan of care. This note was dictated using voice recognition software and may contain errors or omissions [facility] History I have reviewed the patient's past medical history: Yes Medical History: Reports:: Diabetes Mellitus Type 2, Gastroesophageal Reflux Disease(GERD), Hyperlipidemia, Hypertension, Kidney Stones Denies:: Cancer, Diabetes Mellitus Type 1, MRSA, Seizures *Have you ever received a pneumonia vaccine?: No *Have you received a flu vaccine this season?: Yes Other Medical History: Denies: Blood Transfusion Reaction Other Surgeries: Yes: No Previous Surgery, Other Amputation: No Fractures: Yes - *Social History Smoking Status: Never smoker Tobacco Type: cigarettes # Packs/Day (cigarettes): 1 #Yrs smoked (if former smoker): 5 Alcohol Intake: never Alcohol Intake Frequency:: other Substance Use Type: denies use *Occupational Status:: other Housing: house Household Members: family *Travel in the last 8 weeks: None Family Hx:: Unable to obtain
[2020-04-15 09:02] VITALS: BP 134/85; PULSE 87; RESP 18; TEMP 36.6; O2SAT 98; BMI 37.3
== END ==
PROVIDERS: PCP Physician Assistant; Visit Provider Clinical Nurse Specialist Family Health
DX: M51.16 Intervertebral disc disorders with radiculopathy, lumbar region (principal)
CPT/HCPCS: 99212

== ENCOUNTER → 2020-05-13 10:27 | Outpatient (POV) | payer OTHER, SELFPAY ==
--- NOTE | 2020-05-13 10:43 | P.CONS_ITS ---
[facility] Pain Management SOAP Note Subjective:: Patient is a 44-year-old white male who presents today for papers to be filled out for his disability. Patient states he has a hearing coming up. I discussed with him that we do not fill out disability papers. At last visit patient had no pain. Patient states that his pain returned yesterday. Patient states that he only has pain when he is lifting things. Patient is asking for stronger medication today I discussed utilizing a steroid to help with his flareup. He is uninterested in pursuing an intervention at this time. ROS General: no recent weight change, no fever, no sleep disturbances Respiratory: no cough, no shortness of air, no recurring pulmonary infections Cardiovascular/Peripheral Vascular: No chest pain, No palpitations, no edema, no shortness of breath. Gastrointestinal: no new onset incontinence, normal bowel movements reported Genitourinary: no new onset incontinence Musculoskeletal: Back pain Psychiatric: normal mood/ affect Neurological: [denies new onset weakness in extremities], [denies new onset balance issues] Objective:: Physical Exam General: Alert and oriented x3, no acute distress, pleasant and cooperative, [on room air] Lungs: Resps E/U, Symmetrical chest expansion, Eyes: PERRL Musculoskeletal: Flexion and extension of lumbar spine somewhat guarded secondary to pain, deep tendon reflexes normal, strength in upper and lower extremities [5/5], [abnormal gait noted] Neurological: speech clear, scheduling coordinator equal, no gross sensory deficits Assessment:: Degenerative disc disease lumbar spine lumbar radiculopathy Plan:: I discussed with the patient that we do not fill out disability paperwork. At this time he states only pain he has is when he is lifting things. Patient was given prednisone 20 mg 1 p.o. twice daily for 5 days. We will follow-up with him in 1 month. I did discuss with him if he would like further interventional treatment since it has worked so well for him in the past this he is welcome to call our office. Dr. Hayes has reviewed this note and agrees with this plan of care. This note was dictated using voice recognition software and may contain errors or omissions [facility] History I have reviewed the patient's past medical history: Yes Medical History: Reports:: Diabetes Mellitus Type 2, Gastroesophageal Reflux Disease(GERD), Hyperlipidemia, Hypertension, Kidney Stones Denies:: Cancer, Diabetes Mellitus Type 1, MRSA, Seizures *Have you ever received a pneumonia vaccine?: Yes *Have you received a flu vaccine this season?: Yes Other Medical History: Denies: Blood Transfusion Reaction Other Surgeries: Yes: No Previous Surgery, Other Amputation: No Fractures: Yes - *Social History Smoking Status: Never smoker Tobacco Type: cigarettes # Packs/Day (cigarettes): 1 #Yrs smoked (if former smoker): 5 Alcohol Intake: never Alcohol Intake Frequency:: other Substance Use Type: denies use *Occupational Status:: other Housing: house Household Members: family *Travel in the last 8 weeks: None Family Hx:: Unable to obtain
[2020-05-13 10:49] VITALS: BP 140/78; PULSE 65; RESP 18; TEMP 36.8; O2SAT 98; BMI 37.3
== END ==
PROVIDERS: PCP Physician Assistant; Visit Provider Clinical Nurse Specialist Family Health
DX: M51.16 Intervertebral disc disorders with radiculopathy, lumbar region (principal)
CPT/HCPCS: 99212

== ENCOUNTER → 2020-06-07 09:33 | Outpatient (POV) | payer OTHER, SELFPAY ==
[2020-06-07 10:13] VITALS: BP 132/85; PULSE 85; RESP 18; O2SAT 98; BMI 35.9
--- NOTE | 2020-06-07 12:06 | HMH.PAINSOAP ---
[facility] Pain Management SOAP Note Subjective:: Is a pleasant 44-year-old white male who presents today for follow-up. 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 We discussed increasing his gabapentin he is currently on gabapentin 100 mg 1 p.o. daily he states that this is beneficial he denies any side effects to his medication. [facility] #[id number] reviewed and appropriate. ROS General: no recent weight change, no fever, no sleep disturbances Respiratory: no cough, no shortness of air, no recurring pulmonary infections Cardiovascular/Peripheral Vascular: No chest pain, No palpitations, no edema, no shortness of breath. Gastrointestinal: no new onset incontinence, normal bowel movements reported Genitourinary: no new onset incontinence Musculoskeletal: Back pain, leg pain Psychiatric: normal mood/ affect Neurological: [denies new onset weakness in extremities], [denies new onset balance issues] Objective:: Physical Exam General: Alert and oriented x3, no acute distress, pleasant and cooperative, [on room air] Lungs: Resps E/U, Symmetrical chest expansion, Eyes: PERRL Musculoskeletal: Flexion and extension of lumbar spine somewhat guarded secondary to pain, deep tendon reflexes normal, strength in upper and lower extremities [5/5], antalgic gait noted Neurological: speech clear, matchbook maker equal, no gross sensory deficits Assessment:: Degenerative disc disease lumbar spine lumbar radiculopathy Plan:: We will increase the patient's gabapentin to 300 mg 1 p.o. 3 times daily. I will follow-up with him in 1 month reassess his symptoms at that time he has been instructed to call the office if he has any issues prior to his next appointment. Dr. Hayes has reviewed this note and agrees with this plan of care. This note was dictated using voice recognition software and may contain errors or omissions [facility] History I have reviewed the patient's past medical history: Yes Medical History: Reports:: Diabetes Mellitus Type 2, Gastroesophageal Reflux Disease(GERD), Hyperlipidemia, Hypertension, Kidney Stones Denies:: Cancer, Diabetes Mellitus Type 1, MRSA, Seizures *Have you ever received a pneumonia vaccine?: Yes *Have you received a flu vaccine this season?: Yes Other Medical History: Denies: Blood Transfusion Reaction Other Surgeries: Yes: No Previous Surgery, Other Amputation: No Fractures: Yes - *Social History Smoking Status: Never smoker Tobacco Type: cigarettes # Packs/Day (cigarettes): 1 #Yrs smoked (if former smoker): 5 Alcohol Intake: never Alcohol Intake Frequency:: other Substance Use Type: denies use *Occupational Status:: other Housing: house Household Members: family *Travel in the last 8 weeks: None Family Hx:: Unable to obtain
== END ==
PROVIDERS: Visit Provider Clinical Nurse Specialist Family Health
DX: M51.16 Intervertebral disc disorders with radiculopathy, lumbar region (principal)
CPT/HCPCS: 99212; G0463

== ENCOUNTER → 2020-06-16 14:28 | Outpatient (CLI) | payer OTHER, SELFPAY ==
[2020-06-16 14:50] LABS: Basophils % 0.4 % (0.1-2.0); Eosinophils # 0.2 K/mm3 (0.0-0.4); Eosinophils % 1.6 % (0.1-12.0); Hematocrit 52.2 % (42.0-52.0); Hemoglobin 17.2 g/dL (14.1-18.0); Lymphocytes % 20.5 % (10-50); Mean Corpuscular HGB Conc 32.9 g/dL (31.8-35.4); Mean Corpuscular Hemoglobin 31.1 pg (27.0-31.2); Mean Corpuscular Volume 94.3 fl (80-94); Mean Platelet Volume 9.4 fl (7.4-10.4); Monocytes # 0.5 K/mm3 (0.1-1.0); Monocytes % 5.6 % (1.7-9.3); Neutrophils # 6.9 K/mm3 (1.8-7.8); Neutrophils % 71.9 % (37.0-80.0); Platelet Count 332 K/mm3 (142-424); Red Blood Count 5.54 M/mm3 (4.60-6.20); Red Cell Distribution Width 13.2 % (11.5-17.5); White Blood Count 9.6 K/mm3 (4.8-10.8)
[2020-06-16 14:50] LABS: Alanine Aminotransferase 59 U/L (12-78); Albumin Level 4.6 g/dl (3.5-5.0); Albumin/Globulin Ratio 1.4 (1.1-1.8); Alkaline Phosphatase 140 U/L (38-126); Anion Gap 13.7 mEq/L (5-15); Aspartate Amino Transferase 52 U/L (17-59); Blood Urea Nitrogen 9 mg/dl (9-20); Calcium 9.9 mg/dl (8.4-10.2); Carbon Dioxide 30 mmol/L (22.0-30.0); Chloride 100 mmol/L (98-107); Chol/HDL Ratio 5.7 (1-3.5); Cholesterol 224 mg/dl (140-200); Estimated Glomerular Filt Rate 92 ml/min (>60); GFR (African American) 111 ML/MIN (>60); Globulin 3.2 g/dL (1.3-3.2); Glucose 124 mg/dl (74-100); HDL Cholesterol 39 mg/dl (40-60); Potassium 4.7 mmoL/L (3.5-5.1); Sodium 139 mmol/L (136-145); Total Protein,Serum 7.8 g/dl (6.3-8.2); Triglycerides 255 mg/dl (30-150); VLDL Cholesterol 51 mg/dL (0-40)
[2020-06-16 15:01] LABS: Direct LDL Cholesterol 138.05 mg/dL (100-129)
[2020-06-16 15:06] LABS: Free T4 (Free Thyroxine) 0.98 ng/dl (0.78-2.19)
[2020-06-16 15:09] LABS: 25-OH Vitamin D, Total 31.1 ng/mL (30-100)
[2020-06-16 15:19] LABS: Thyroid Stimulating Hormone 1.91 uIU/mL (0.465-4.68)
[2020-06-16 15:24] LABS: Hemoglobin A1C 6.6 % (4.0-6.0)
== END ==
PROVIDERS: Visit Provider Physician Assistant
DX: E11.9 Type 2 diabetes mellitus without complications (principal); E55.9 Vitamin D deficiency, unspecified; E87.6 Hypokalemia; Z79.84 Long term (current) use of oral hypoglycemic drugs
CPT/HCPCS: 80053; 80061; 82306; 83036; 84439; 84443; 85025

== ENCOUNTER → 2020-07-12 10:03 | Outpatient (POV) | payer OTHER, SELFPAY ==
[2020-07-12 10:15] VITALS: BP 135/88; PULSE 74; RESP 18; TEMP 36.9; O2SAT 99; BMI 34.8
--- NOTE | 2020-07-12 10:29 | P.CONS_ITS ---
[facility] Pain Management SOAP Note Subjective:: Patient is a pleasant 44-year-old white male who presents today for follow-up. Patient was doing quite well however he is had an increase in pain due to weather. He rates his pain a 10 out of 10. We discussed increasing his gabapentin he has done well with this he is currently on 300 mg 1 p.o. 3 times daily. We discussed adding Celebrex to his regimen. He is interested in moving forward with this. ROS General: no recent weight change, no fever, no sleep disturbances Respiratory: no cough, no shortness of air, no recurring pulmonary infections Cardiovascular/Peripheral Vascular: No chest pain, No palpitations, no edema, no shortness of breath. Gastrointestinal: no new onset incontinence, normal bowel movements reported Genitourinary: no new onset incontinence Musculoskeletal: Back pain Psychiatric: normal mood/ affect Neurological: [denies new onset weakness in extremities], [denies new onset balance issues] Objective:: Physical Exam General: Alert and oriented x3, no acute distress, pleasant and cooperative, [on room air] Lungs: Resps E/U, Symmetrical chest expansion Eyes: PERRL Musculoskeletal: Flexion and extension of lumbar spine somewhat guarded secondary to pain, deep tendon reflexes normal, strength in upper and lower extremities [5/5], antalgic gait noted Neurological: speech clear, concrete bucket loader equal, no gross sensory deficits Assessment:: Degenerative disc disease lumbar spine lumbar radiculopathy Plan:: We will continue his gabapentin 300 mg 1 p.o. 3 times daily and we will add Celebrex 200 mg 1 p.o. daily. I will follow-up with him in 1 month reassess his symptoms at that time he has been instructed to call the office if he has any issues prior to his next appointment. Dr. Hayes has reviewed this note and agrees with this plan of care. This note was dictated using voice recognition software and may contain errors or omissions [facility] History I have reviewed the patient's past medical history: Yes Medical History: Reports:: Diabetes Mellitus Type 2, Gastroesophageal Reflux Disease(GERD), Hyperlipidemia, Hypertension, Kidney Stones Denies:: Cancer, Diabetes Mellitus Type 1, MRSA, Seizures *Have you ever received a pneumonia vaccine?: Yes *Have you received a flu vaccine this season?: Yes Other Medical History: Denies: Blood Transfusion Reaction Other Surgeries: Yes: No Previous Surgery, Other Amputation: No Fractures: Yes - *Social History Smoking Status: Never smoker Tobacco Type: cigarettes # Packs/Day (cigarettes): 1 #Yrs smoked (if former smoker): 5 Alcohol Intake: never Alcohol Intake Frequency:: other Substance Use Type: denies use *Occupational Status:: other Housing: house Household Members: family *Travel in the last 8 weeks: None Family Hx:: Unable to obtain
== END ==
PROVIDERS: PCP Physician Assistant; Visit Provider Clinical Nurse Specialist Family Health
DX: M51.16 Intervertebral disc disorders with radiculopathy, lumbar region (principal)
CPT/HCPCS: 99212; G0463

== ENCOUNTER → 2020-08-09 09:47 | Outpatient (POV) | payer OTHER, SELFPAY ==
[2020-08-09 10:41] VITALS: BP 141/71; PULSE 71; RESP 18; O2SAT 98; BMI 37.6
--- NOTE | 2020-08-09 10:41 | HMH.PAINSOAP ---
[facility] Pain Management SOAP Note Subjective:: Is a pleasant 44-year-old white male who presents today for follow-up and medication refills. Patient was having Celebrex in addition to his gabapentin at the last visit. He states that the Celebrex has helped his pain slightly. However, he is currently taking care of his grandmother who is in hospice care she requires constant help with activities of daily living. Feels this is irritating to his back pain. Currently has increasing numbness and tingling in the right leg. 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 Offered repeat epidural injection, at this time he refuses injection. Shay was reviewed and is appropriate ROS General: no recent weight change, no fever, no sleep disturbances Respiratory: no cough, no shortness of air, no recurring pulmonary infections Cardiovascular/Peripheral Vascular: No chest pain, No palpitations, no edema, no shortness of breath. Gastrointestinal: no new onset incontinence, normal bowel movements reported Genitourinary: no new onset incontinence Musculoskeletal: [Low back pain, right leg numbness] Psychiatric: normal mood/ affect, [denies depression], [denies anxiety] Neurological: [denies new onset weakness in extremities], [denies new onset balance issues] Objective:: Physical Exam General: Alert and oriented x3, no acute distress, pleasant and cooperative, [on room air] Lungs: Resps E/U, Symmetrical chest expansion, [CTA bilateral] Eyes: PERRL Musculoskeletal: Flexion and extension of lumbar spine somewhat guarded secondary to pain, deep tendon reflexes normal, strength in upper and lower extremities [5/5], [abnormal gait noted] Neurological: speech clear, derrick boat lever operator equal, no gross sensory deficits Assessment:: Degenerative disc disease lumbar spine lumbar radiculopathy Plan:: We will increase his gabapentin to 400 mg and we will continue his Celebrex 200 mg 1 p.o. daily we will follow-up with him in 1 month to reassess his symptoms. Dr. Hayes has reviewed this note and agrees with this plan of care. This note was dictated using voice recognition software and may contain errors or omissions [facility] History Medical History: Reports:: Diabetes Mellitus Type 2, Gastroesophageal Reflux Disease(GERD), Hyperlipidemia, Hypertension, Kidney Stones Denies:: Cancer, Diabetes Mellitus Type 1, MRSA, Seizures *Have you ever received a pneumonia vaccine?: Yes *Have you received a flu vaccine this season?: Yes Other Medical History: Denies: Blood Transfusion Reaction Other Surgeries: Yes: No Previous Surgery, Other Amputation: No Fractures: Yes - *Social History Smoking Status: Never smoker Tobacco Type: cigarettes # Packs/Day (cigarettes): 1 #Yrs smoked (if former smoker): 5 Alcohol Intake: never Alcohol Intake Frequency:: other Substance Use Type: denies use *Occupational Status:: other Housing: house Household Members: family *Travel in the last 8 weeks: None Family Hx:: Unable to obtain
== END ==
PROVIDERS: PCP Physician Assistant; Visit Provider Clinical Nurse Specialist Family Health
DX: M51.16 Intervertebral disc disorders with radiculopathy, lumbar region (principal)
CPT/HCPCS: 99212; G0463

== ENCOUNTER → 2020-09-09 09:05 | Outpatient (POV) | payer OTHER, SELFPAY ==
--- NOTE | 2020-09-09 09:40 | P.CONS_ITS ---
[facility] Pain Management SOAP Note Subjective:: Is a pleasant 44-year-old white male who presents today for medication refills. Patient was rates his pain a 10 out of 10 however he states is due to weather. Patient states he is been doing well currently on his Celebrex and gabapentin 400 mg 1 p.o. 3 times daily he denies side effects. [facility] #[id number] reviewed and appropriate. Patient states that after his epidural injection he did have only had short-term relief he is not interested in any injection therapy. ROS General: no recent weight change, no fever, no sleep disturbances Respiratory: no cough, no shortness of air, no recurring pulmonary infections Cardiovascular/Peripheral Vascular: No chest pain, No palpitations, no edema, no shortness of breath. Gastrointestinal: no new onset incontinence, normal bowel movements reported Genitourinary: no new onset incontinence Musculoskeletal: Back pain, leg pain Psychiatric: normal mood/ affect, Neurological: [denies new onset weakness in extremities], [denies new onset balance issues] Objective:: Physical Exam General: Alert and oriented x3, no acute distress, pleasant and cooperative, [on room air] Lungs: Resps E/U, Symmetrical chest expansion, Eyes: PERRL Musculoskeletal: Flexion and extension of lumbar spine somewhat guarded seconda ry to pain, deep tendon reflexes normal, strength in upper and lower extremities [5/5], [abnormal gait noted] Neurological: speech clear, baggagemaster equal, no gross sensory deficits Assessment:: Degenerative disc disease lumbar spine lumbar radiculopathy, back pain Plan:: We will continue his gabapentin 400 mg 1 p.o. 3 times daily and Celebrex 200 mg 1 p.o. daily we will see him back in 3 months reassess his symptoms at that time he has been instructed to call the office if he has any issues prior to next appointment. Dr. Hayes has reviewed this note and agrees with this plan of care. This note was dictated using voice recognition software and may contain errors or omissions [facility] History I have reviewed the patient's past medical history: Yes Medical History: Reports:: Diabetes Mellitus Type 2, Gastroesophageal Reflux Disease(GERD), Hyperlipidemia, Hypertension, Kidney Stones Denies:: Cancer, Diabetes Mellitus Type 1, MRSA, Seizures *Have you ever received a pneumonia vaccine?: No *Have you received a flu vaccine this season?: Yes Other Medical History: Denies: Blood Transfusion Reaction Other Surgeries: Yes: No Previous Surgery, Other Amputation: No Fractures: Yes - *Social History Smoking Status: Never smoker Tobacco Type: cigarettes # Packs/Day (cigarettes): 1 #Yrs smoked (if former smoker): 5 Alcohol Intake: never Alcohol Intake Frequency:: other Substance Use Type: denies use *Occupational Status:: other Housing: house Household Members: family *Travel in the last 8 weeks: None Family Hx:: Cancer, Diabetes
[2020-09-09 09:54] VITALS: BP 142/73; PULSE 68; RESP 18; O2SAT 98; BMI 43.4
== END ==
PROVIDERS: Visit Provider Clinical Nurse Specialist Family Health
DX: M51.16 Intervertebral disc disorders with radiculopathy, lumbar region (principal)
CPT/HCPCS: 99212; G0463

== ENCOUNTER → 2020-12-08 16:42 | Outpatient (CLI) | payer OTHER, SELFPAY ==
[2020-12-08 17:48] LABS: Microalbumin/Creatinine Ratio 3.7
[2020-12-08 17:53] LABS: Creatinine,Urine Random 196 mg/dL (Not Estab.)
== END ==
PROVIDERS: Visit Provider Emergency Medicine
DX: E11.9 Type 2 diabetes mellitus without complications (principal)
CPT/HCPCS: 82043; 82570

== ENCOUNTER → 2020-12-09 08:30 | Outpatient (POV) | payer OTHER, SELFPAY ==
[2020-12-09 08:44] VITALS: BP 128/84; PULSE 75; RESP 18; O2SAT 98; BMI 37.6
--- NOTE | 2020-12-09 09:08 | P.CONS_ITS ---
[facility] Pain Management SOAP Note Subjective:: Patient is a pleasant 45-year-old white male who presents today for follow-up and for medication refills. He has been treated for degenerative disc disease lumbar spine with lumbar radiculopathy symptoms and chronic back pain. Patient is managed with gabapentin 400 mg 1 tablet p.o. 3 times daily and Celebrex 200 mg 1 tablet p.o. daily. He denies any side effects to his medication. He is doing well overall. He rates his pain a 4 out of 10. His Shay and drug screen are appropriate. Review of Systems General: No recent weight changes, no fever, no sleep disturbances Respiratory: No cough, no shortness of air, no recurring pulmonary infections Cardiovascular/peripheral vascular: No chest pain, no palpitations, no edema, no shortness of breath Gastrointestinal: No new onset incontinence, normal bowel movements reported Genitourinary: No new onset incontinence Musculoskeletal: Chronic low back pain Psychiatric: Normal mood/affect Neurological: [Denies weakness in extremities], [denies balance issues] Objective:: Physical exam General: Alert and oriented x3, no acute distress, pleasant and cooperative, [on room air] Lungs: Respirations even and unlabored, symmetrical chest expansion Eyes: PERRL Musculoskeletal: Flexion and extension of [] lumbar spine somewhat guarded secondary to pain, deep tendon reflexes normal, strength in upper and lower extremities [5/5], [abnormal gait noted] Neurological: Speech clear, biomedical repair technician equal, no gross sensory deficit Assessment:: Degenerative disc disease lumbar spine with lumbar radiculopathy symptoms Plan:: We will refill the patient's gabapentin 400 mg 1 tablet 3 times daily. We will also refill his Celebrex 200 mg 1 tablet p.o. daily. Patient will get 3 months of medication and be seen in the clinic in 3 months for reevaluation of symptoms . Risks and benefits of the medication have been explained in detail to the patient. The patient has been advised to consult with his/her primary care provider and pharmacist regarding drug-drug interaction of medications currently prescribed. Patient has been instructed to contact the clinic with any concerns before the next appointment. Dr. Hayes has reviewed this note and agrees with this plan of care. This note was dictated using voice recognition software and make contain errors or omissions. [facility] History I have reviewed the patient's past medical history: Yes Medical History: Reports:: Diabetes Mellitus Type 2, Gastroesophageal Reflux Disease(GERD), Hyperlipidemia, Hypertension, Kidney Stones Denies:: Cancer, Diabetes Mellitus Type 1, MRSA, Seizures *Have you ever received a pneumonia vaccine?: No *Have you received a flu vaccine this season?: Yes Other Medical History: Denies: Blood Transfusion Reaction Other Surgeries: Yes: No Previous Surgery, Other Amputation: No Fractures: Yes - *Social History Smoking Status: Never smoker Tobacco Type: cigarettes # Packs/Day (cigarettes): 1 #Yrs smoked (if former smoker): 5 Alcohol Intake: never Alcohol Intake Frequency:: other Substance Use Type: denies use *Occupational Status:: unemployed Housing: house Household Members: family *Travel in the last 8 weeks: Inside the [place] Family Hx:: Cancer, Diabetes
== END ==
PROVIDERS: Visit Provider Clinical Nurse Specialist Family Health
DX: M51.16 Intervertebral disc disorders with radiculopathy, lumbar region (principal)
CPT/HCPCS: 99212; G0463

== ENCOUNTER 2021-01-21 08:00 | Outpatient (RCR) | payer OTHER, SELFPAY | END 2021-01-21 08:05 | disposition home or self-care (01) | LOC: PT 08:00 | PROVIDERS: Visit Provider Emergency Medicine | DX: M54.5 Low back pain (principal) | CPT/HCPCS: 97012; 97110; 97163; 97164 ==

== ENCOUNTER → 2021-02-28 15:00 | Outpatient (CLI) | payer OTHER, SELFPAY ==
[2021-02-28 15:15] LABS: Chloride 104 mmol/L (98-107)
[2021-02-28 15:16] LABS: Potassium 4.2 mmoL/L (3.5-5.1); Sodium 140 mmol/L (136-145)
[2021-02-28 15:18] LABS: Alanine Aminotransferase 103 U/L (12-78); Anion Gap 15.2 mEq/L (5-15); Aspartate Amino Transferase 88 U/L (17-59); Blood Urea Nitrogen 9 mg/dl (9-20); Carbon Dioxide 25 mmol/L (22.0-30.0); Cholesterol 201 mg/dl (140-200); Estimated Glomerular Filt Rate 146 ml/min (>60); GFR (African American) 177 ML/MIN (>60); Triglycerides 181 mg/dl (30-150); VLDL Cholesterol 36 mg/dL (0-40)
[2021-02-28 15:19] LABS: Albumin Level 4.1 g/dl (3.5-5.0); Albumin/Globulin Ratio 1.5 (1.1-1.8); Alkaline Phosphatase 98 U/L (38-126); Basophils # 0.1 K/mm3 (0-0.2); Basophils % 0.6 % (0.1-2.0); Bilirubin,Total 0.9 mg/dl (0.2-1.3); Calcium 9.4 mg/dl (8.4-10.2); Chol/HDL Ratio 6.7 (1-3.5); Eosinophils # 0.4 K/mm3 (0.0-0.4); Eosinophils % 4.2 % (0.1-12.0); Globulin 2.8 g/dL (1.3-3.2); Glucose 130 mg/dl (74-100); HDL Cholesterol 30 mg/dl (40-60); Hematocrit 48.5 % (42.0-52.0); Hemoglobin 15.5 g/dL (14.1-18.0); Lymphocytes # 1.9 K/mm3 (0.7-4.5); Lymphocytes % 22.4 % (10-50); Mean Corpuscular HGB Conc 32.1 g/dL (31.8-35.4); Mean Corpuscular Hemoglobin 31.2 pg (27.0-31.2); Mean Corpuscular Volume 97.4 fl (80-94); Mean Platelet Volume 9.9 fl (7.4-10.4); Monocytes # 0.5 K/mm3 (0.1-1.0); Monocytes % 5.2 % (1.7-9.3); Neutrophils # 5.9 K/mm3 (1.8-7.8); Neutrophils % 67.8 % (37.0-80.0); Platelet Count 310 K/mm3 (142-424); Red Blood Count 4.98 M/mm3 (4.60-6.20); Red Cell Distribution Width 13.1 % (11.5-17.5); Total Protein,Serum 6.9 g/dl (6.3-8.2); White Blood Count 8.7 K/mm3 (4.8-10.8)
[2021-02-28 15:35] LABS: T4 (Thyroxine) 9.3 ug/dl (5.53-11.0)
[2021-02-28 15:37] LABS: Direct LDL Cholesterol 136.39 mg/dL (100-129)
[2021-02-28 15:49] LABS: Thyroid Stimulating Hormone 1.44 uIU/mL (0.465-4.68)
== END ==
PROVIDERS: Visit Provider Emergency Medicine
DX: E11.9 Type 2 diabetes mellitus without complications (principal); Z79.84 Long term (current) use of oral hypoglycemic drugs; Z79.899 Other long term (current) drug therapy
CPT/HCPCS: 80053; 80061; 83036; 84436; 84443; 85025

== ENCOUNTER → 2021-03-10 08:01 | Outpatient (POV) | payer OTHER, SELFPAY ==
[2021-03-10 08:20] VITALS: BP 104/86; PULSE 89; RESP 18; O2SAT 95; BMI 33.5
--- NOTE | 2021-03-10 08:24 | HMH.PAINSOAP ---
[facility] Pain Management SOAP Note Subjective:: Patient is a 45-year-old white male who presents today for follow-up and medication refills. The patient rates his pain a 10 out of 10 today. He is having pain in his low back and right lower extremity. He has had injective therapy in the clinic which has not given him any relief. He has tried physical therapy for 6 weeks which gave him no relief. We currently manage the patient with Celebrex 200 mg 1 tablet p.o. daily and gabapentin 400 mg 1 tablet p.o. 3 times daily. He gets significant relief with gabapentin. He says that Celebrex helps him as well. He would like to try increasing his gabapentin dose to see if this helps with breakthrough pain throughout the day. Review of Systems General: No recent weight changes, no fever, no sleep disturbances Respiratory: No cough, no shortness of air, no recurring pulmonary infections Cardiovascular/peripheral vascular: No chest pain, no palpitations, no edema, no shortness of breath Gastrointestinal: No new onset incontinence, normal bowel movements reported Genitourinary: No new onset incontinence Musculoskeletal: Low back pain with radiation into right leg and foot Psychiatric: [Normal mood/affect] Neurological: [Denies weakness in extremities], [denies balance issues] Objective:: Physical exam General: Alert and oriented x3, no acute distress, pleasant and cooperative, [on room air] Lungs: Respirations even and unlabored, symmetrical chest expansion Eyes: PERRL Musculoskeletal: Flexion and extension of lumbar [spine] somewhat guarded secondary to pain, strength in upper and lower extremities [5/5], [antalgic gait noted] Neurological: Speech clear, [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 He does have a 10 out of 10 pain today. We will increase the patient's gabapentin 600 mg 1 tablet p.o. 3 times daily. We will continue him on Celebrex. Milligrams 1 tablet p.o. daily. He is having difficulty sleeping at bedtime due to muscle spasms. We will order a low-dose of Flexeril to take at bedtime only. He has been advised to use caution with these medications as they can cause sedative effect. He does understand. He has been advised to contact the clinic if his gabapentin dose causes him any side effects. We will see the patient back in 3 months unless he needs to see us before, for which she can contact the clinic. Risks and benefits of the medication have been explained in detail to the patient. The patient has been advised to consult with his/her primary care provider and pharmacist regarding drug-drug interaction of medications currently prescribed. Patient has been prescribed a controlled substance after being counseled on the medication, medication safety, and possible side effects. [facility] report has been obtained and reviewed prior to prescription and found to be appropriate. Opioid contract was reviewed and signed by the patient, and that they have agreed to all of the terms set forth by our compliance program. Patient has been instructed to contact the clinic with any concerns before the next appointment. Dr. Hayes has reviewed this note and agrees with this plan of care. This note was dictated using voice recognition software and make contain errors or omissions. [facility] History I have reviewed the patient's past medical history: Yes Medical History: Reports:: Diabetes Mellitus Type 2, Gastroesophageal Reflux Disease(GERD), Hyperlipidemia, Hypertension, Kidney Stones Denies:: Cancer, Diabetes Mellitus Type 1, MRSA, Seizures *Have you ever received a pneumonia vaccine?: No *Have you received a flu vaccine this season?: Yes Other Medical History: Denies: Blood Transfusion Reaction Other S
== END ==
PROVIDERS: Visit Provider Clinical Nurse Specialist Family Health
DX: M51.16 Intervertebral disc disorders with radiculopathy, lumbar region (principal)
CPT/HCPCS: 99212; G0463

== ENCOUNTER → 2021-03-11 07:23 | Outpatient (CLI) | payer OTHER, SELFPAY ==
--- NOTE | 2021-03-11 07:30 | US_ITS ---
PROCEDURE: US ABDOMEN LIMITED CLINICAL INDICATION: Ordered Elevated liver enzymes COMPARISON: No exams were available for comparison FINDINGS: PANCREAS: Unremarkable. No obvious mass or abnormal fluid collection. No ductal dilatation LIVER: No focal liver lesions demonstrated. There is overall increased in somewhat coarsened appearing echogenicity consistent with diffuse fatty infiltration.. No intrahepatic biliary ductal dilatation evident. There is appropriate direction of blood flow within a non dilated portal vein RIGHT KIDNEY: Unremarkable. Right kidney measures 9.7 x 4.3 by 7.2 cm and appears sonographically normal. GALLBLADDER: The gallbladder is normal in size and shows a trace amount of biliary sludge near the neck of the gallbladder along the dependent wall. There are no gallstones seen. The common bile duct is normal in caliber. IMPRESSION: Diffuse hepatic steatosis along with minimal biliary sludge as noted Dictated by: Dr. Chinmay Davison MD 03/11/2021 12:11 Dr. Chinmay Davison MD in [place] 03/11/2021 12:11
== END ==
PROVIDERS: PCP Emergency Medicine; Visit Provider Emergency Medicine
DX: R74.8 Abnormal levels of other serum enzymes (principal)
CPT/HCPCS: 76705

== ENCOUNTER → 2021-06-09 08:00 | Outpatient (POV) | payer OTHER, SELFPAY ==
[2021-06-09 08:26] VITALS: BP 140/99; PULSE 79; RESP 20; TEMP 36.6; O2SAT 99; BMI 38.7
--- NOTE | 2021-06-09 09:03 | HMH.PAINSOAP ---
[facility] Pain Management SOAP Note Subjective:: Patient is a 45-year-old white male who presents today for follow-up and medication refills. Patient's pain is a 10 out of 10 today. He is having severe low back pain with radiation into right lower extremity. He has had injective therapy in the clinic which is given him minimal relief. We do have the patient on gabapentin 600 mg 1 tablet p.o. 3 times daily as well as Celebrex. 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 Patient does have tingling in his bilateral lower extremities as well. He denies any bowel or bladder changes. Review of Systems General: No recent weight changes, no fever, no sleep disturbances Respiratory: No cough, no shortness of air, no recurring pulmonary infections Cardiovascular/peripheral vascular: No chest pain, no palpitations, no edema, no shortness of breath Gastrointestinal: No new onset incontinence, normal bowel movements reported Genitourinary: No new onset incontinence Musculoskeletal: Low back pain with radiation into right leg with numbness and tingling Psychiatric: [Normal mood/affect] Neurological: [Denies weakness in extremities], [denies balance issues] Objective:: Physical exam General: Alert and oriented x3, no acute distress, pleasant and cooperative Lungs: Respirations even and unlabored, symmetrical chest expansion Eyes: PERRL Musculoskeletal: Flexion and extension of lumbar [spine] somewhat guarded secondary to pain, [antalgic gait noted] Neurological: Speech clear, no gross sensory deficit Assessment:: Degenerative disc disease lumbar spine with lumbar radiculopathy symptoms Plan:: We will continue patient's gabapentin 600 mg 1 tablet p.o. her acid advisory 3 times daily and Celebrex 200 mg 1 tablet p.o. daily. We will recheck the We will start the patient on tramadol 50 mg 1 tablet p.o. 3 times daily. We will see him back and low back we will see him back in 3 months for further evaluation. He has been advised of high risk of oversedation with medications. We will order the patient Narcan to have available in the event of oversedation. Risks and benefits of the medication have been explained in detail to the patient. The patient does understand the risk of dependence on the medication when given over a prolonged period. Patient has been advised of risks of oversedation with the prescribed medication. Narcan has been offered to the paitent in the event of oversedation. Patient has been advised that a family member should also be educated regarding administration of Narcan. The patient has been advised to consult with his/her primary care provider and pharmacist regarding drug-drug interaction of medications currently prescribed. Patient has been prescribed a controlled substance after being counseled on the medication, medication safety, and possible side effects. [facility] report has been obtained and reviewed prior to prescription and found to be appropriate. Opioid contract was reviewed and signed by the patient, and that they have agreed to all of the terms set forth by our compliance program. Patient has been instructed to contact the clinic with any concerns before the next appointment. Dr. Hayes has reviewed this note and agrees with this plan of care. This note was dictated using voice recognition software and make contain errors or omissions. [facility] History I have reviewed the patient's past medical history: Yes Medical History: Reports:: Diabetes Mellitus Type 2, Gastroesophageal Reflux Disease(GERD), Hyperlipidemia, Hypertension, Kidney Stones Denies:: Cancer, Diabetes Mellitus Type 1, MRSA, Seizures *Have you ever received a pneumonia vaccine?: No *Have you received a flu vaccine this season?: No Other Medical History: Denies: Blood Transfusion Reaction Other Surgeries: Yes: No Previous Surgery, Other Amputation: No Fractures: Yes - *Social History S
== END ==
PROVIDERS: Visit Provider Clinical Nurse Specialist Family Health
DX: M51.16 Intervertebral disc disorders with radiculopathy, lumbar region (principal)
CPT/HCPCS: 99212; G0463

== ENCOUNTER → 2021-07-20 07:32 | Outpatient (CLI) | payer OTHER, SELFPAY ==
[2021-07-20 08:05] LABS: Basophils % 0.3 % (0.1-2.0); Eosinophils # 0.2 K/mm3 (0.0-0.4); Eosinophils % 2.4 % (0.1-12.0); Hematocrit 47.5 % (42.0-52.0); Hemoglobin 15.3 g/dL (14.1-18.0); Lymphocytes # 1.8 K/mm3 (0.7-4.5); Lymphocytes % 17.8 % (10-50); Mean Corpuscular HGB Conc 32.1 g/dL (31.8-35.4); Mean Corpuscular Hemoglobin 30.8 pg (27.0-31.2); Mean Corpuscular Volume 95.7 fl (80-94); Mean Platelet Volume 8.6 fl (7.4-10.4); Monocytes # 0.6 K/mm3 (0.1-1.0); Monocytes % 5.7 % (1.7-9.3); Neutrophils # 7.4 K/mm3 (1.8-7.8); Neutrophils % 73.8 % (37.0-80.0); Platelet Count 286 K/mm3 (142-424); Red Blood Count 4.96 M/mm3 (4.60-6.20); Red Cell Distribution Width 12.6 % (11.5-17.5); White Blood Count 10.1 K/mm3 (4.8-10.8)
[2021-07-20 08:32] LABS: Chloride 101 mmol/L (98-107); Potassium 4.8 mmoL/L (3.5-5.1); Sodium 135 mmol/L (136-145)
[2021-07-20 08:35] LABS: Alanine Aminotransferase 86 U/L (12-78); Albumin Level 4.3 g/dl (3.5-5.0); Albumin/Globulin Ratio 1.5 (1.1-1.8); Alkaline Phosphatase 93 U/L (38-126); Anion Gap 9.8 mEq/L (5-15); Aspartate Amino Transferase 64 U/L (17-59); Bilirubin,Total 1.1 mg/dl (0.2-1.3); Blood Urea Nitrogen 13 mg/dl (9-20); Calcium 8.7 mg/dl (8.4-10.2); Carbon Dioxide 29 mmol/L (22.0-30.0); Cholesterol 209 mg/dl (140-200); Estimated Glomerular Filt Rate 105 ml/min (>60); GFR (African American) 127 ML/MIN (>60); Globulin 2.8 g/dL (1.3-3.2); Glucose 140 mg/dl (74-100); Total Protein,Serum 7.1 g/dl (6.3-8.2); Triglycerides 188 mg/dl (30-150); VLDL Cholesterol 38 mg/dL (0-40)
[2021-07-20 08:36] LABS: HDL Cholesterol 30 mg/dl (40-60)
[2021-07-20 08:47] LABS: Direct LDL Cholesterol 147.48 mg/dL (100-129)
[2021-07-20 08:52] LABS: Free T4 (Free Thyroxine) 0.88 ng/dl (0.78-2.19)
[2021-07-20 09:06] LABS: Thyroid Stimulating Hormone 2.01 uIU/mL (0.465-4.68)
[2021-07-20 09:51] LABS: 25-OH Vitamin D, Total 40.8 ng/mL (30-100)
[2021-07-20 10:09] LABS: Hemoglobin A1C 6.1 % (4.0-6.0)
[2021-07-20 14:16] LABS: Amphetamine/Metha Screen,Urine Negative ng/ml (<1000)
[2021-07-20 14:17] LABS: Barbiturates Screen,Urine Negative ng/ml (<200); Benzodiazepines Screen,Urine Negative ng/ml (<200)
[2021-07-20 14:20] LABS: Cannabinoid Screen,Urine Negative ng/ml (<50); Cocaine Screen,Urine Negative ng/ml (<300)
[2021-07-20 14:21] LABS: Methadone Screen,Urine Negative ng/ml (<300)
[2021-07-20 14:22] LABS: Opiate Screen,Urine Negative ng/ml (<300); Phencyclidine Screen,Urine Negative ng/ml (<25)
== END ==
PROVIDERS: PCP Emergency Medicine; Visit Provider Emergency Medicine
DX: E11.9 Type 2 diabetes mellitus without complications (principal); E03.9 Hypothyroidism, unspecified; R53.83 Other fatigue; K59.00 Constipation, unspecified; E66.9 Obesity, unspecified; Z79.899 Other long term (current) drug therapy; Z68.39 Body mass index [BMI] 39.0-39.9, adult; Z79.84 Long term (current) use of oral hypoglycemic drugs
CPT/HCPCS: 36415; 80053; 80061; 80305; 82306; 83036; 84439; 84443; 85025

== ENCOUNTER → 2021-09-08 08:05 | Outpatient (POV) | payer OTHER, SELFPAY ==
[2021-09-08 08:20] VITALS: BP 123/89; PULSE 70; RESP 20; O2SAT 99; BMI 38.9
--- NOTE | 2021-09-08 08:50 | P.CONS_ITS ---
[facility] Pain Management SOAP Note Subjective:: Patient is a pleasant 45-year-old male who is here for medication refill and follow-up. Patient is currently being treated for degenerative disc disease of lumbar spine with lumbar radiculopathy symptoms. Patient is being managed with gabapentin 600 mg 3 times a day and Celebrex. Patient denies any side effects from the medications. Patient denies any changes to the location and type of pain. Patient states that this is adequately helping manage their pain. Rates pain as 8 out of 10. [facility] number [id number] with an active morphine equivalent 0. Drug screens have been reviewed and appropriate. Review of Systems: General: No recent weight changes, no fever, no sleep disturbances Respiratory: No cough, no shortness of air, no recurring pulmonary infections Cardiovascular/peripheral vascular: No chest pain, no palpitations, no edema, no shortness of breath Gastrointestinal: No new onset incontinence, normal bowel movements reported Genitourinary: No new onset incontinence Musculoskeletal: Low back pain Psychiatric: [Normal mood/affect] Neurological: [Denies weakness in extremities], [denies balance issues] Objective:: Physical Exam: General: Alert and oriented x3, no acute distress, pleasant and cooperative, [on room air] Lungs: Respirations even and unlabored, symmetrical chest expansion Eyes: PERRL Musculoskeletal: Flexion and extension of lumbar [spine] somewhat guarded secondary to pain, [antalgic gait noted] Neurological: Speech clear, no gross sensory deficit Assessment:: Degenerative disc disease of lumbar spine with lumbar radiculopathy symptoms Plan:: We will continue the patient's gabapentin 600 mg 3 times a day and Celebrex 200 mg daily. We will provide the patient with 3 months of refills. We would like to see the patient back in 3 months for follow-up and reevaluation of chronic pain syndrome. Patient has been advised of risks of oversedation with the prescribed medication. Narcan has been offered to the patient in the event of oversedation. Patient has been advised that a family member should also be educated regarding administration of Narcan. Patient has been instructed to contact the clinic with any concerns before the next appointment. Dr. Hayes has reviewed this note and agrees with this plan of care. This note was dictated using voice recognition software and make contain errors or omissions. [facility] History Medical History: Reports:: Diabetes Mellitus Type 2, Gastroesophageal Reflux Disease(GERD), Hyperlipidemia, Hypertension, Kidney Stones Denies:: Cancer, Diabetes Mellitus Type 1, MRSA, Seizures *Have you ever received a pneumonia vaccine?: No *Have you received a flu vaccine this season?: No Other Medical History: Denies: Blood Transfusion Reaction Other Surgeries: Yes: No Previous Surgery, Other Amputation: No Fractures: Yes - *Social History Smoking Status: Never smoker Tobacco Type: cigarettes # Packs/Day (cigarettes): 1 #Yrs smoked (if former smoker): 5 Alcohol Intake: never Alcohol Intake Frequency:: other Substance Use Type: denies use *Occupational Status:: other Housing: house Household Members: family *Travel in the last 8 weeks: None Family Hx:: Cancer, Diabetes
== END ==
PROVIDERS: Visit Provider Student in an Organized Health Care Education/Training Program
DX: M51.16 Intervertebral disc disorders with radiculopathy, lumbar region (principal)
CPT/HCPCS: 99212; G0463

== ENCOUNTER → 2021-12-06 09:19 | Outpatient (POV) | payer OTHER, SELFPAY ==
[2021-12-06 09:37] VITALS: BP 151/97; PULSE 89; RESP 20; TEMP 36.7; O2SAT 99; BMI 35.9
--- NOTE | 2021-12-06 09:50 | HMH.PAINSOAP ---
[facility] Pain Management SOAP Note Subjective:: Patient is a pleasant 46-year-old male who is here for medication refill and follow-up. Patient is currently being treated for degenerative disc disease of lumbar spine with lumbar radiculopathy symptoms. Patient is being managed with gabapentin 600 mg 3 times a day and Celebrex 200 mg daily. Patient denies any side effects from the medications. Patient denies any changes to the location and type of pain. Patient states that this is adequately helping manage their pain. Rates pain as 10 out of 10. [facility] number [id number] with an active morphine equivalent 0. Drug screens have been reviewed and appropriate. 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 He is currently hurting in this area at this time. Denies any loss of bowel or bladder function. He has been using topical creams on his back since yesterday which seems to help. Review of Systems: General: No recent weight changes, no fever, no sleep disturbances Respiratory: No cough, no shortness of air, no recurring pulmonary infections Cardiovascular/peripheral vascular: No chest pain, no palpitations, no edema, no shortness of breath Gastrointestinal: No new onset incontinence, normal bowel movements reported Genitourinary: No new onset incontinence Musculoskeletal: Low back pain Psychiatric: [Normal mood/affect] Neurological: [Denies weakness in extremities], [denies balance issues] Objective:: Physical Exam: General: Alert and oriented x3, no acute distress, pleasant and cooperative Lungs: Respirations even and unlabored, symmetrical chest expansion Eyes: PERRL Musculoskeletal: Flexion and extension of lumbar [spine] somewhat guarded secondary to pain, [antalgic gait noted]; patient is tender to palpation around the right-sided lumbar paraspinous muscles at the level of L1-L3 Neurological: Speech clear, no gross sensory deficit Assessment:: Degenerative disc disease of lumbar spine with lumbar radiculopathy symptoms, myofascial pain Plan:: We will continue the patient's gabapentin 600 mg 3 times a day and Celebrex 200 mg daily. We will provide the patient with 3 months of refills. We would like to see the patient back in 3 months for follow-up and reevaluation of chronic pain syndrome. I will start the patient on prednisone 20 mg twice a day for 5 days and tizanidine 4 mg 3 times a day for 14 days. Patient has been advised of risks of oversedation with the prescribed medication. Narcan has been offered to the patient in the event of oversedation. Patient has been advised that a family member should also be educated regarding administration of Narcan. Patient has been instructed to contact the clinic with any concerns before the next appointment. Dr. Hayes has reviewed this note and agrees with this plan of care. This note was dictated using voice recognition software and make contain errors or omissions. [facility] History Medical History: Reports:: Diabetes Mellitus Type 2, Gastroesophageal Reflux Disease(GERD), Hyperlipidemia, Hypertension, Kidney Stones Denies:: Cancer, Diabetes Mellitus Type 1, MRSA, Seizures *Have you ever received a pneumonia vaccine?: No *Have you received a flu vaccine this season?: Yes Other Medical History: Denies: Blood Transfusion Reaction Other Surgeries: Yes: No Previous Surgery, Other Amputation: No Fractures: Yes - *Social History Smoking Status: Never smoker Tobacco Type: cigarettes # Packs/Day (cigarettes): 1 #Yrs smoked (if former smoker): 5 Alcohol Intake: never Alcohol Intake Frequency:: other Substance Use Type: denies use *Occupational Status:: other Housing: house Household Members: family *Travel in the last 8 weeks: None Family Hx:: Cancer, Diabetes
== END ==
PROVIDERS: Visit Provider Student in an Organized Health Care Education/Training Program
DX: M51.16 Intervertebral disc disorders with radiculopathy, lumbar region (principal); M79.10 Myalgia, unspecified site
CPT/HCPCS: 99212; G0463

== ENCOUNTER → 2021-12-28 06:13 | Outpatient (CLI) | payer OTHER, SELFPAY ==
[2021-12-27 21:37] LABS: Alanine Aminotransferase 40 U/L (12-78); Albumin/Globulin Ratio 1.6 (1.1-1.8); Alkaline Phosphatase 117 U/L (38-126); Anion Gap 11.2 mEq/L (5-15); Aspartate Amino Transferase 38 U/L (17-59); Bilirubin,Total 0.3 mg/dl (0.2-1.3); Blood Urea Nitrogen 10 mg/dl (9-20); Calcium 9.4 mg/dl (8.4-10.2); Carbon Dioxide 29 mmol/L (22.0-30.0); Chloride 102 mmol/L (98-107); Estimated Glomerular Filt Rate 105 ml/min (>60); GFR (African American) 126 ML/MIN (>60); Globulin 2.5 g/dL (1.3-3.2); Glucose 78 mg/dl (74-100); Potassium 4.2 mmoL/L (3.5-5.1); Sodium 138 mmol/L (136-145); Total Protein,Serum 6.5 g/dl (6.3-8.2)
== END ==
PROVIDERS: PCP Family Medicine; Visit Provider Family Medicine
DX: E11.9 Type 2 diabetes mellitus without complications (principal); Z79.84 Long term (current) use of oral hypoglycemic drugs
CPT/HCPCS: 80053

== ENCOUNTER → 2022-03-06 08:12 | Outpatient (POV) | payer OTHER, SELFPAY ==
[2022-03-06 08:37] VITALS: BP 131/97; PULSE 80; RESP 18; TEMP 36.6; O2SAT 98; BMI 34.8
--- NOTE | 2022-03-06 09:00 | A.OFFVIS_ITS ---
[facility] Pain Management SOAP Note Subjective:: Patient is a pleasant 46-year-old male who presents today for medication refill and follow-up. We are currently treating the patient for degenerative disc disease of lumbar spine with lumbar radiculopathy symptoms. Today he rates his pain a 2 out of 10. He states the pain is primarily in his low back that radiates into his bilateral legs. He is currently managed with gabapentin 600 mg 3 times a day and Celebrex 200 mg daily. Patient denies any side effects from these medications. He states these medications adequately help manage his pain. He is requesting refills at today's visit. We had also discussed previously trying tizanidine however he states he did not get this prescription. He is requesting it at today's visit. His Shay is [phone]. Is been reviewed and appropriate. Review of Systems: General: No recent weight changes, no fever, no sleep disturbances Respiratory: No cough, no shortness of air, no recurring pulmonary infections Cardiovascular/peripheral vascular: No chest pain, no palpitations, no edema, no shortness of breath Gastrointestinal: No new onset incontinence, normal bowel movements reported Genitourinary: No new onset incontinence Musculoskeletal: Low back pain, leg pain Psychiatric: [Normal mood/affect] Neurological: [Denies weakness in extremities], [denies balance issues] Objective:: Physical Exam: General: Alert and oriented x3, no acute distress, pleasant and cooperative Lungs: Respirations even and unlabored, symmetrical chest expansion Eyes: PERRL Musculoskeletal: Flexion and extension of lumbar [spine] somewhat guarded secondary to pain, [antalgic gait noted] Neurological: Speech clear, no gross sensory deficit Assessment:: Degenerative disc disease of lumbar spine with lumbar radiculopathy symptoms Plan:: Patient continues to have significant pain in his low back that radiates into his bilateral lower extremities however his current medication regimen works well providing symptom relief. I will refill the patient's gabapentin 600 mg 3 times a day and provide a 3 month supply of this medication. I will also refill his Celebrex and send in tizanidine 4 mg 3 times daily and give a 3-month supply on these medications. Patient will return to clinic in 3 months for reevaluation of symptoms, medication refill and follow-up. Patient has been advised of risks of oversedation with the prescribed medication. Narcan has been offered to the patient in the event of oversedation. Patient has been advised that a family member should also be educated regarding administration of Narcan. Patient has been instructed to contact the clinic with any concerns before the next appointment. Dr. Hayes has reviewed this note and agrees with this plan of care. This note was dictated using voice recognition software and make contain errors or omissions. [facility] Medical History (Updated 02/28/22 @ 15:12 by Lexi Luna) Abnormal ECG Asymptomatic LV dysfunction Back Pain Bilateral foot pain Degeneration of intervertebral disc of lumbar region with osteophyte of lumbar vertebra History of kidney stones Low back pain Lumbar degenerative disc disease Neuroforaminal stenosis of lumbar spine Neuropathic pain Sinus tachycardia Snoring Family History Other Diabetes Social History Smoking Status: Never smoker alcohol intake: never substance use type: denies use current occupational status: unemployed Travel in the last 8 weeks: None household members: family h
== END | disposition home or self-care (01) ==
PROVIDERS: Visit Provider Nurse Practitioner Family
DX: M51.16 Intervertebral disc disorders with radiculopathy, lumbar region (principal); Z79.899 Other long term (current) drug therapy
CPT/HCPCS: 99212; G0463

== ENCOUNTER → 2022-04-05 14:34 | Outpatient (CLI) | payer OTHER, SELFPAY ==
[2022-04-05 19:21] LABS: Basophils # 0.1 K/mm3 (0-0.2); Basophils % 0.4 % (0.1-2.0); Eosinophils # 0.1 K/mm3 (0.0-0.4); Eosinophils % 0.6 % (0.1-12.0); Hematocrit 51.3 % (42.0-52.0); Hemoglobin 16.6 g/dL (14.1-18.0); Lymphocytes % 17.7 % (10-50); Mean Corpuscular HGB Conc 32.4 g/dL (31.8-35.4); Mean Corpuscular Hemoglobin 31.3 pg (27.0-31.2); Mean Corpuscular Volume 96.8 fl (80-94); Mean Platelet Volume 9.5 fl (7.4-10.4); Monocytes # 0.7 K/mm3 (0.1-1.0); Neutrophils # 8.4 K/mm3 (1.8-7.8); Neutrophils % 75.3 % (37.0-80.0); Platelet Count 325 K/mm3 (142-424); White Blood Count 11.2 K/mm3 (4.8-10.8)
[2022-04-05 19:39] LABS: Alanine Aminotransferase 51 U/L (12-78); Albumin Level 4.8 g/dl (3.5-5.0); Albumin/Globulin Ratio 1.6 (1.1-1.8); Alkaline Phosphatase 116 U/L (38-126); Anion Gap 17.6 mEq/L (5-15); Aspartate Amino Transferase 43 U/L (17-59); Bilirubin,Total 1.2 mg/dl (0.2-1.3); Blood Urea Nitrogen 16 mg/dl (9-20); Calcium 10.4 mg/dl (8.4-10.2); Carbon Dioxide 30 mmol/L (22.0-30.0); Chloride 99 mmol/L (98-107); Estimated Glomerular Filt Rate 91 ml/min (>60); GFR (African American) 110 ML/MIN (>60); Glucose 87 mg/dl (74-100); Potassium 4.6 mmoL/L (3.5-5.1); Sodium 142 mmol/L (136-145); Total Protein,Serum 7.8 g/dl (6.3-8.2)
[2022-04-05 20:10] LABS: Thyroid Stimulating Hormone 3.03 uIU/mL (0.465-4.68)
[2022-04-05 20:46] LABS: Hemoglobin A1C 5.5 % (4.0-6.0)
== END ==
PROVIDERS: PCP Nurse Practitioner; Visit Provider Nurse Practitioner
DX: E11.9 Type 2 diabetes mellitus without complications (principal); I10 Essential (primary) hypertension; Z79.84 Long term (current) use of oral hypoglycemic drugs
CPT/HCPCS: 80053; 83036; 84443; 85025

== ENCOUNTER → 2022-06-21 08:06 | Outpatient (POV) | payer OTHER, SELFPAY ==
[2022-06-21 08:24] VITALS: BP 111/87; PULSE 90; RESP 18; O2SAT 98; BMI 37.6
--- NOTE | 2022-06-21 08:42 | EXP.PAIN.SOA ---
[facility] Pain Management SOAP Note Subjective:: Patient is a pleasant 46-year-old male who presents today for medication refill and 3-month follow-up. We are currently treating the patient for degenerative disc disease of lumbar spine with lumbar radiculopathy symptoms. Today he rates his pain a 1 out of 10. Patient denies any new trauma or injury. Patient denies any change location or type of pain he experiences. Patient is currently managed with gabapentin 600 mg 3 times a day and Celebrex 200 mg daily along with tizanidine 4 mg 3 times daily. Patient denies any side effects from these medications. He states these medications do adequately manage his pain symptoms. He is requesting refills at today's visit. His Shay is [phone]. Its been reviewed and appropriate. Review of Systems: General: No recent weight changes, no fever, no sleep disturbances Respiratory: No cough, no shortness of air, no recurring pulmonary infections Cardiovascular/peripheral vascular: No chest pain, no palpitations, no edema, no shortness of breath Gastrointestinal: No new onset incontinence, normal bowel movements reported Genitourinary: No new onset incontinence Musculoskeletal: Low back pain Psychiatric: [Normal mood/affect] Neurological: [Denies weakness in extremities], [denies balance issues] Objective:: Physical Exam: General: Alert and oriented x3, no acute distress, pleasant and cooperative Lungs: Respirations even and unlabored, symmetrical chest expansion Eyes: PERRL Musculoskeletal: Flexion and extension of lumbar [spine] somewhat guarded secondary to pain, [antalgic gait noted] Neurological: Speech clear, no gross sensory deficit ORT score updated with moderate risk Family history of prescription drug abuse Personal history of prescription drug abuse Age 46 Assessment:: Degenerative disc disease of lumbar spine with lumbar radiculopathy symptoms Plan:: Patient continues to experience pain in his low back with radiating symptoms into his lower extremities however he is doing well with his current medication regimen. I will refill his gabapentin 600 mg 3 times a day, tizanidine 4 mg 3 times daily and Celebrex 200 mg daily and provide a 3-month supply of this medication. Patient will return to clinic in 3 months for reevaluation of symptoms, medication refill and follow-up. Patient has been instructed to contact the clinic with any concerns before the next appointment. Dr. Hayes has reviewed this note and agrees with this plan of care. This note was dictated using voice recognition software and make contain errors or omissions. [facility] Disclaimer: The information contained in this section may have been updated after the patient was seen, as this information can be updated by other users. Medical History (Updated 05/30/22 @ 16:31 by Benoit YANEZ MD) Abnormal ECG Asymptomatic LV dysfunction Back Pain Bilateral foot pain Degeneration of intervertebral disc of lumbar region with osteophyte of lumbar vertebra History of kidney stones Low back pain Lumbar degenerative disc disease Neuroforaminal stenosis of lumbar spine Neuropathic pain Primary hypertension Sinus tachycardia Snoring Family History Other Diabetes Social History Smoking Status: Never smoker alcohol intake: never substance use type: denies use current occupational status: employed Travel in the last 8 weeks: None household members: family housing: house caffeine: Yes
== END | disposition home or self-care (01) ==
PROVIDERS: PCP Family Medicine; Visit Provider Nurse Practitioner Family
DX: M51.16 Intervertebral disc disorders with radiculopathy, lumbar region (principal); Z79.899 Other long term (current) drug therapy
CPT/HCPCS: 99212; G0463

== ENCOUNTER → 2022-06-30 10:25 | Outpatient (CLI) | payer OTHER, SELFPAY | PROVIDERS: PCP Family Medicine; Visit Provider Family Medicine | DX: Z20.828 Contact with and (suspected) exposure to other viral communicable diseases (principal) ==

== ENCOUNTER → 2022-07-24 17:15 | Outpatient (CLI) | payer OTHER, SELFPAY | PROVIDERS: Visit Provider Nurse Practitioner Family | DX: M79.671 Pain in right foot (principal); B35.3 Tinea pedis; B95.7 Other staphylococcus as the cause of diseases classified elsewhere | CPT/HCPCS: 87070; 87077; 87186; 87205 ==

== ENCOUNTER → 2022-08-29 16:56 | Outpatient (CLI) | payer OTHER, SELFPAY ==
[2022-08-29 19:43] LABS: Alanine Aminotransferase 58 U/L (12-78); Albumin/Globulin Ratio 1.5 (1.1-1.8); Alkaline Phosphatase 84 U/L (38-126); Aspartate Amino Transferase 42 U/L (17-59); Bilirubin,Total 0.5 mg/dl (0.2-1.3); Blood Urea Nitrogen 11 mg/dl (9-20); Calcium 8.5 mg/dl (8.4-10.2); Carbon Dioxide 26 mmol/L (22.0-30.0); Chloride 102 mmol/L (98-107); Estimated Glomerular Filt Rate 105 ml/min (>60); GFR (African American) 126 ML/MIN (>60); Globulin 2.6 g/dL (1.3-3.2); Glucose 98 mg/dl (74-100); Sodium 137 mmol/L (136-145); Total Protein,Serum 6.6 g/dl (6.3-8.2)
== END ==
PROVIDERS: PCP Family Medicine; Visit Provider Family Medicine
DX: E11.9 Type 2 diabetes mellitus without complications (principal); Z79.84 Long term (current) use of oral hypoglycemic drugs
CPT/HCPCS: 80053

== ENCOUNTER → 2022-09-06 23:18 | Outpatient (CLI) | payer OTHER, SELFPAY ==
[2022-09-06 19:01] LABS: Chol/HDL Ratio 4.3 (1-3.5); Cholesterol 152 mg/dl (140-200); HDL Cholesterol 35 mg/dl (40-60); Triglycerides 116 mg/dl (30-150); VLDL Cholesterol 23 mg/dL (0-40)
[2022-09-06 19:20] LABS: Direct LDL Cholesterol 106.73 mg/dL (100-129)
== END ==
PROVIDERS: PCP Family Medicine; Visit Provider Family Medicine
DX: E78.5 Hyperlipidemia, unspecified (principal)
CPT/HCPCS: 80061

== ENCOUNTER → 2022-09-18 08:02 | Outpatient (POV) | payer OTHER, SELFPAY ==
[2022-09-18 08:37] VITALS: BP 137/81; PULSE 82; RESP 18; O2SAT 98; BMI 34.8
--- NOTE | 2022-09-18 08:48 | A.OFFVIS_ITS ---
[facility] Pain Management SOAP Note Subjective:: Patient is a pleasant 46-year-old male who presents today for medication refill and follow-up. We are currently treating the patient for degenerative disc disease of lumbar spine with lumbar radiculopathy symptoms today he rates his pain a 4 out of 10. Patient denies any new trauma or injury. Patient denies any change location or type of pain he experiences. He does state today that he is experiencing a little bit more pain than normal however he is doing well with his current medications. He is managed with gabapentin 600 mg 3 times a day, Celebrex 200 mg daily and tizanidine 4 mg 3 times a day. Patient denies any side effects from this medication. He is requesting refills today. His Shay is [id number]. Its been reviewed and appropriate. Review of Systems: General: No recent weight changes, no fever, no sleep disturbances Respiratory: No cough, no shortness of air, no recurring pulmonary infections Cardiovascular/peripheral vascular: No chest pain, no palpitations, no edema, no shortness of breath Gastrointestinal: No new onset incontinence, normal bowel movements reported Genitourinary: No new onset incontinence Musculoskeletal: Low back pain Psychiatric: [Normal mood/affect] Neurological: [Denies weakness in extremities], [denies balance issues] Objective:: Physical Exam: General: Alert and oriented x3, no acute distress, pleasant and cooperative Lungs: Respirations even and unlabored, symmetrical chest expansion Eyes: PERRL Musculoskeletal: Flexion and extension of lumbar [spine] somewhat guarded secondary to pain, [antalgic gait noted] Neurological: Speech clear, no gross sensory deficit Assessment:: Degenerative disc disease of lumbar spine with lumbar radiculopathy symptoms Plan:: Patient is doing well with his current medication regimen. I will refill his gabapentin 600 mg 3 times a day, Celebrex 200 mg daily and tizanidine 4 mg 3 times a day and provide a 3-month supply of this medication. Patient will return to clinic in 3 months for reevaluation of symptoms, medication refill and follow-up. Patient has been instructed to contact the clinic with any concerns before the next appointment. Dr. Hayes has reviewed this note and agrees with this plan of care. This note was dictated using voice recognition software and make contain errors or omissions. [facility] Disclaimer: The information contained in this section may have been updated after the patient was seen, as this information can be updated by other users. Medical History (Updated 09/05/22 @ 15:51 by Benoit YANEZ MD) Abnormal ECG Asymptomatic LV dysfunction Back Pain Bilateral foot pain Degeneration of intervertebral disc of lumbar region with osteophyte of lumbar vertebra Dyslipidemia Encounter for immunization History of kidney stones Injury of finger of right hand Low back pain Lumbar degenerative disc disease Neuroforaminal stenosis of lumbar spine Neuropathic pain Primary hypertension Sinus tachycardia Snoring Wrist pain, left Family History Other Diabetes Social History Smoking Status: Never smoker alcohol intake: never substance use type: denies use current occupational status: employed Travel in the last 8 weeks: None household members: family housing: house caffeine: Yes
== END | disposition home or self-care (01) ==
PROVIDERS: PCP Family Medicine; Visit Provider Nurse Practitioner Family
DX: M51.16 Intervertebral disc disorders with radiculopathy, lumbar region (principal)
CPT/HCPCS: 99212; G0463

== ENCOUNTER → 2022-12-18 10:02 | Outpatient (POV) | payer OTHER, SELFPAY ==
--- NOTE | 2022-12-18 10:11 | A.OFFVIS_ITS ---
[facility] Pain Management SOAP Note Subjective:: Patient is a pleasant 47-year-old male who presents today for 3-month follow-up and medication refill. We are currently treating the patient for degenerative disc disease of the lumbar spine with lumbar radiculopathy symptoms. Today he rates his pain an 8 out of 10. Patient denies any new trauma or injury. Patient denies any change location or type of pain he experiences. He is currently managed with gabapentin 600 mg 3 times a day, Celebrex 200 mg daily and tizanidine 4 mg 3 times a day. He denies any side effects from this medication. His Shay is [id number]. Its been reviewed and appropriate. Review of Systems: General: No recent weight changes, no fever, no sleep disturbances Respiratory: No cough, no shortness of air, no recurring pulmonary infections Cardiovascular/peripheral vascular: No chest pain, no palpitations, no edema, no shortness of breath Gastrointestinal: No new onset incontinence, normal bowel movements reported Genitourinary: No new onset incontinence Musculoskeletal: Low back pain Psychiatric: [Normal mood/affect] Neurological: [Denies weakness in extremities], [denies balance issues] Objective:: Physical Exam: General: Alert and oriented x3, no acute distress, pleasant and cooperative Lungs: Respirations even and unlabored, symmetrical chest expansion Eyes: PERRL Musculoskeletal: Flexion and extension of lumbar [spine] somewhat guarded secondary to pain, [antalgic gait noted] Neurological: Speech clear, no gross sensory deficit Assessment:: Degenerative disc disease of lumbar spine with lumbar radiculopathy symptoms Plan:: I will refill the patient's gabapentin 600 mg 3 times a day, Celebrex 200 mg daily and tizanidine 4 mg 3 times a day and provide a 3-month supply of this medication. Patient will return to clinic in 3 months for reevaluation of symptoms and medication refill. Patient has been instructed to contact the clinic with any concerns before the next appointment. Dr. Hayes has reviewed this note and agrees with this plan of care. This note was dictated using voice recognition software and make contain errors or omissions. [facility] Disclaimer: The information contained in this section may have been updated after the patient was seen, as this information can be updated by other users. Medical History Abnormal ECG Asymptomatic LV dysfunction Back Pain Bilateral foot pain Degeneration of intervertebral disc of lumbar region with osteophyte of lumbar vertebra Dyslipidemia Encounter for immunization History of kidney stones Injury of finger of right hand S69.91XD SUBSEQUENT Low back pain Lumbar degenerative disc disease Neuroforaminal stenosis of lumbar spine Neuropathic pain Primary hypertension Sinus tachycardia Snoring Wrist pain, left Family History Other Diabetes Social History Smoking Status: Never smoker alcohol intake: never substance use type: denies use current occupational status: employed Travel in the last 8 weeks: None household members: family housing: house caffeine: Yes
[2022-12-18 10:42] VITALS: BP 104/69; PULSE 74; RESP 18; O2SAT 97; BMI 37.6
== END | disposition home or self-care (01) ==
PROVIDERS: PCP Family Medicine; Visit Provider Nurse Practitioner Family
DX: M51.16 Intervertebral disc disorders with radiculopathy, lumbar region (principal)
CPT/HCPCS: 99212; G0463

== ENCOUNTER → 2023-02-02 23:20 | Outpatient (CLI) | payer OTHER, SELFPAY ==
[2023-02-02 19:26] LABS: Basophils % 0.4 % (0.1-2.0); Eosinophils # 0.3 K/mm3 (0.0-0.4); Eosinophils % 3.1 % (0.1-12.0); Hemoglobin 15.3 g/dL (14.1-18.0); Lymphocytes # 1.7 K/mm3 (0.7-4.5); Lymphocytes % 20.7 % (10-50); Mean Corpuscular HGB Conc 31.9 g/dL (31.8-35.4); Mean Platelet Volume 10.5 fl (7.4-10.4); Monocytes # 0.5 K/mm3 (0.1-1.0); Monocytes % 6.3 % (1.7-9.3); Neutrophils # 5.6 K/mm3 (1.8-7.8); Neutrophils % 69.5 % (37.0-80.0); Platelet Count 239 K/mm3 (142-424); Red Blood Count 4.95 M/mm3 (4.60-6.20); Red Cell Distribution Width 12.9 % (11.5-17.5); White Blood Count 8.1 K/mm3 (4.8-10.8)
[2023-02-02 19:33] LABS: Alanine Aminotransferase 75 U/L (12-78); Albumin Level 4.5 g/dl (3.5-5.0); Albumin/Globulin Ratio 1.6 (1.1-1.8); Alkaline Phosphatase 97 U/L (38-126); Anion Gap 16.2 mEq/L (5-15); Aspartate Amino Transferase 61 U/L (17-59); Bilirubin,Total 1.2 mg/dl (0.2-1.3); Blood Urea Nitrogen 17 mg/dl (9-20); Calcium 9.1 mg/dl (8.4-10.2); Carbon Dioxide 28 mmol/L (22.0-30.0); Chloride 99 mmol/L (98-107); Chol/HDL Ratio 5.4 (1-3.5); Cholesterol 172 mg/dl (140-200); Estimated Glomerular Filt Rate 72 ml/min (>60); GFR (African American) 87 ML/MIN (>60); Globulin 2.9 g/dL (1.3-3.2); Glucose 92 mg/dl (74-100); HDL Cholesterol 32 mg/dl (40-60); Potassium 4.2 mmoL/L (3.5-5.1); Sodium 139 mmol/L (136-145); Total Protein,Serum 7.4 g/dl (6.3-8.2); Triglycerides 145 mg/dl (30-150); VLDL Cholesterol 29 mg/dL (0-40)
[2023-02-02 19:44] LABS: Direct LDL Cholesterol 106.21 mg/dL (100-129)
[2023-02-02 20:04] LABS: Prostate Specific Ag Screen 0.6 ng/ml (0.0-4.0)
== END ==
PROVIDERS: PCP Family Medicine; Visit Provider Family Medicine
DX: Z12.5 Encounter for screening for malignant neoplasm of prostate (principal); E78.5 Hyperlipidemia, unspecified; E11.9 Type 2 diabetes mellitus without complications
CPT/HCPCS: 80053; 80061; 85025; G0103

== ENCOUNTER → 2023-03-21 09:55 | Outpatient (POV) | payer OTHER, SELFPAY ==
--- NOTE | 2023-03-21 10:58 | A.OFFVIS_ITS ---
[facility] Pain Management SOAP Note Subjective:: Patient is a pleasant 47-year-old male who presents today for medication refill and follow-up. We are currently treating the patient for degenerative disc disease of lumbar spine with lumbar radiculopathy symptoms. Today he does rate his pain a 10 out of 10. Patient denies any new trauma or injury. He does state that today is a bad day and that he is starting to experience more leg cramps that are worse at night. He states that it is all in his lower calves and that frequently he has to get up in the middle of the night and walk around to have relief. Patient is currently managed with gabapentin 600 mg 3 times a day, Celebrex 200 mg daily and tizanidine 4 mg 3 times a day. He denies any side effects from this medication. His Shay is [id number]. Its been reviewed and appropriate. Review of Systems: General: No recent weight changes, no fever, no sleep disturbances Respiratory: No cough, no shortness of air, no recurring pulmonary infections Cardiovascular/peripheral vascular: No chest pain, no palpitations, no edema, no shortness of breath Gastrointestinal: No new onset incontinence, normal bowel movements reported Genitourinary: No new onset incontinence Musculoskeletal: Low back pain, bilateral leg spasms Psychiatric: [Normal mood/affect] Neurological: [Denies weakness in extremities], [denies balance issues] Objective:: Physical Exam: General: Alert and oriented x3, no acute distress, pleasant and cooperative Lungs: Respirations even and unlabored, symmetrical chest expansion Eyes: PERRL Musculoskeletal: Flexion and extension of lumbar [spine] somewhat guarded secondary to pain, [antalgic gait noted] Neurological: Speech clear, no gross sensory deficit Assessment:: Degenerative disc disease of lumbar spine with lumbar radiculopathy symptoms, restless leg syndrome Plan:: I will refill the patient's current medication regimen of 600 mg gabapentin 3 times a day, Celebrex 200 mg daily and tizanidine 4 mg 3 times a day and provide a 1 month supply of this medication. I will also order the patient ropinirole 0.25 mg at bedtime and provide a 1 month supply of this medication. Patient will return to clinic in 1 month for reevaluation and plan of care. Patient has been instructed to contact the clinic with any concerns before the next appointment. Dr. Hayes has reviewed this note and agrees with this plan of care. This note was dictated using voice recognition software and make contain errors or omissions. [facility] Disclaimer: The information contained in this section may have been updated after the patient was seen, as this information can be updated by other users. Medical History Abnormal ECG Asymptomatic LV dysfunction Back Pain Bilateral foot pain Degeneration of intervertebral disc of lumbar region with osteophyte of lumbar vertebra Dyslipidemia Encounter for immunization History of kidney stones Injury of finger of right hand S69.91XD SUBSEQUENT Low back pain Lumbar degenerative disc disease Neuroforaminal stenosis of lumbar spine Neuropathic pain Primary hypertension Sinus tachycardia Snoring Wrist pain, left Family History Other Diabetes Social History Smoking Status: Never smoker alcohol intake: never substance use type: denies use current occupational status: employed Travel in the last 8 weeks: None household members: family housing: house caffeine: Yes
[2023-03-21 12:45] VITALS: BP 146/86; PULSE 85; RESP 18; O2SAT 97; BMI 37.6
== END | disposition home or self-care (01) ==
PROVIDERS: PCP Family Medicine; Visit Provider Nurse Practitioner Family
DX: M51.16 Intervertebral disc disorders with radiculopathy, lumbar region (principal); G25.81 Restless legs syndrome
CPT/HCPCS: 99212; G0463

== ENCOUNTER → 2023-04-18 09:30 | Outpatient (POV) | payer OTHER, SELFPAY ==
[2023-04-18 09:41] VITALS: BP 130/68; PULSE 85; RESP 18; O2SAT 95; BMI 38.0
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
== END | disposition home or self-care (01) ==
PROVIDERS: PCP Family Medicine; Visit Provider Nurse Practitioner Family
DX: M51.16 Intervertebral disc disorders with radiculopathy, lumbar region (principal)
CPT/HCPCS: 99212; G0463

== ENCOUNTER → 2023-04-18 10:08 | Outpatient (CLI) | payer OTHER, SELFPAY ==
--- NOTE | 2023-04-18 10:13 | XR_ITS ---
FINAL REPORT CLINICAL HISTORY: PAIN FINDINGS: LUMBAR SPINE Five views demonstrate no acute fracture. There is mild disc space narrowing at L5-S1. There is no malalignment. IMPRESSION: No acute process. Reviewed, Interpreted and Dictated by Jeff Dillon MD Transcribed by Purnima Gonsales Authenticated and [facility]
== END ==
PROVIDERS: PCP Family Medicine; Visit Provider Anesthesiology
DX: M54.50 Low back pain, unspecified (principal)
CPT/HCPCS: 72110

== ENCOUNTER 2023-04-29 15:11 | Emergency (ER) | payer OTHER, SELFPAY ==
[2023-04-29 15:50] VITALS: BP 134/91; PULSE 91; RESP 19; TEMP 36.8; O2SAT 97; BMI 38.3
--- NOTE | 2023-04-29 16:16 | EXP.UTC ---
Discharge Plan Disposition Patient Disposition: Home, Self-Care Condition: Good Prescriptions Prescriptions: New benzonatate 100 mg capsule 100 mg PO TID PRN (Reason: cough) Qty: 30 0RF azithromycin [Zithromax Z-Beltran] 250 mg tablet See Rx Instructions .ROUTE .COMPLEX 5 Days Qty: 6 0RF Rx Instructions: For 250 mg dose pack: take 500 mg today (day 1), then 250 mg for 4 days (days 2-5) No Action ezetimibe 10 mg tablet 10 mg PO DAILY Qty: 90 2RF glipizide 2.5 mg tablet extended release 24hr See Rx Instructions .ROUTE .COMPLEX Rx Instructions: Take 1 tablet by mouth once daily for Diabetes lisinopril 5 mg tablet 5 mg PO DAILY metformin 500 mg tablet See Rx Instructions .ROUTE .COMPLEX Rx Instructions: Take 1 Tablet by mouth twice daily for diabetes. ropinirole 0.25 mg tablet 0.25 mg PO HS Qty: 30 0RF Rx Instructions: administer 1-3 hours before bedtime celecoxib 200 MG capsule 200 mg PO DAILY Qty: 30 2RF gabapentin 600 MG tablet 600 mg PO TID Qty: 90 2RF tizanidine [Zanaflex] 4 mg tablet 4 mg PO TID Qty: 90 2RF Referrals Follow up/Referrals: Manju Laboy MD [Primary Care Provider] - See instructions Activity Restrictions/Add. Instructions Additional Instructions/Restrictions: *Monitor Temp, Over the counter Motrin or Tylenol as directed/as needed Tylenol every 4 hours and Motrin every 6 hours (as long as your family doctor has told you that you can take it) for fever or pain. and straight to ER if unable to lower temp less than 101.0 after medication given *Warm salt water gargles may help to soothe the throat *Throat Lozenges? *Warm fluids like tea with honey may help to soothe the throat? *Sleep elevated *Humidifier/Vaporizer *Flonase 2 sprays in each nostril daily but be aware that it may take 2-3 days before you notice improvement Follow up IMMEDIATELY for new or worsening symptoms or no Noticeable improvement over the next 48-72 hours. 911 for difficulty breathing or swallowing Clinical Impressions Clinical Impression: Sinusitis Qualifiers: Sinusitis location: unspecified location Chronicity: unspecified Qualified Code(s): J32.9 - Chronic sinusitis, unspecified Instructions Patient Instructions: DI for Sinusitis, Sinusitis Discharge ED Provider: Phylicia Waite [facility] H[place] General Stated complaint: congestion,cough,sneezing Mode of Arrival: Ambulatory Source of Information: Patient Limitations: No Limitations Time Seen by Provider: 04/29/23 16:16 Description of Symptoms (Recalled from Triage Doc. by RN): PATIENT C/O SINUS PRESSURE, RUNNY NOSE AND DRY COUGH SINCE SUNDAY HEENT Symptoms (Recalled from RN notes): Yes Resp Symptoms (Recalled from RN notes): Yes Skin Symptoms (Recalled from RN notes): No MS Symptoms (Recalled from RN notes): No Functional Status (Recalled from RN notes): WNL History of Present Illness Provider Complaint: Patient states that he has been having sinus pain and pressure thinks he has a sinus infection States that he is having pressure like feeling behind his eyes since Sun and drainage in the back of his throat States tht he came in to [facility] to help Related Data Home Medications Medication Instructions Recorded Confirmed glipizide 2.5 mg tablet, extended See Rx Instructions .Route 09/18/22 04/29/23 release 24 hr .COMPLEX Diabetes metformin 500 mg tablet See Rx Instructions .Route 12/18/22 04/29/23 .COMPLEX Diabetes lisinopril 5 mg tablet 5 mg PO DAILY Hypertension 04/29/23 04/29/23 Previous Rx's Medication Instructions Recorded ezetimibe 10 mg tablet 10 mg PO DAILY Cholesterol #90 tabs 07/31/22 ropinirole 0.25 mg tablet 0.25 mg PO HS #30 tabs 03/21/23 celecoxib 200 mg capsule 200 mg PO DAILY Pain #30 caps 04/18/23 gabapentin 600 mg tablet 600 mg PO TID Pain #90 tabs 04/18/23 tizanidine 4 mg tablet (Zanaflex) 4 mg PO TID Pa
[2023-04-29 16:32] VITALS: BP 134/91; PULSE 91; RESP 19; TEMP 36.8; O2SAT 97
== END 2023-04-29 16:39 | disposition home or self-care (01) ==
PROVIDERS: Emergency Provider Nurse Practitioner; PCP Family Medicine
DX: J01.90 Acute sinusitis, unspecified (principal); R09.81 Nasal congestion; R05.9 Cough, unspecified; R09.82 Postnasal drip; I10 Essential (primary) hypertension; E11.9 Type 2 diabetes mellitus without complications; Z79.84 Long term (current) use of oral hypoglycemic drugs
CPT/HCPCS: 99204; 99212; G0463

== ENCOUNTER → 2023-05-14 09:07 | Outpatient (POV) | payer OTHER, SELFPAY ==
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
[2023-05-14 09:44] VITALS: BP 121/74; PULSE 94; RESP 18; O2SAT 97; BMI 36.2
== END ==
PROVIDERS: PCP Family Medicine; Visit Provider Nurse Practitioner Family
DX: M51.16 Intervertebral disc disorders with radiculopathy, lumbar region (principal)
CPT/HCPCS: 99212; G0463

== ENCOUNTER 2023-06-20 08:06 | Outpatient (CLI) | payer OTHER, SELFPAY ==
--- NOTE | 2023-06-20 08:08 | MR_ITS ---
FINAL REPORT CLINICAL HISTORY: LOW BACK PAIN WORSE ON LEFT SIDE. BILATERAL LEG PAIN, NUMBNESS AND TINGLING COMPARISON: 11/27/2019 FINDINGS: Multiplanar MR imaging of the lumbar spine was performed without contrast. On the sagittal T2-weighted images, disc degeneration is seen at multiple levels. The vertebral alignment is normal. There is no evidence of fracture. The conus has an unremarkable appearance. T12-L1: There is no significant canal stenosis or neural foraminal narrowing. L1-2: There is no significant canal stenosis or neural foraminal narrowing. L2-3: There is no significant canal stenosis or neural foraminal narrowing. L3-4: An annular disc bulge is present. There is no significant canal stenosis or neural foraminal narrowing. L4-5: An annular disc bulge is present. There is a left posterolateral disc protrusion with mild right and moderate left neural foraminal narrowing, stable. L5-S1: Right paracentral and foraminal disc protrusion is again identified with right lateral recess stenosis and right S1 nerve root impingement. There is moderate right and mild left neural foraminal narrowing. IMPRESSION: Left posterolateral disc protrusion at L4-5 is stable. Right paracentral and foraminal disc protrusion at L5-S1 results in right S1 nerve root impingement and right lateral recess stenosis. Reviewed, Interpreted and Dictated by Jb Funez III, MD Transcribed by Purnima Gonsales Authenticated and [facility]
== END 2023-06-20 23:59 ==
LOC: RAD 08:06
PROVIDERS: PCP Family Medicine; Visit Provider Nurse Practitioner Family
DX: M51.16 Intervertebral disc disorders with radiculopathy, lumbar region (principal)
CPT/HCPCS: 72148; 76376

== ENCOUNTER → 2023-06-27 11:00 | Outpatient (POV) | payer OTHER, SELFPAY ==
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
[2023-06-27 12:01] VITALS: BP 131/92; PULSE 68; RESP 18; O2SAT 100; BMI 36.9
== END | disposition home or self-care (01) ==
PROVIDERS: PCP Family Medicine; Visit Provider Nurse Practitioner Family
DX: M51.16 Intervertebral disc disorders with radiculopathy, lumbar region (principal); G54.4 Lumbosacral root disorders, not elsewhere classified; M48.061 Spinal stenosis, lumbar region without neurogenic claudication
CPT/HCPCS: 99212; G0463

== ENCOUNTER 2023-07-26 11:12 | Outpatient (POV) | payer OTHER, SELFPAY ==
--- NOTE | 2023-07-26 11:40 | EXP.PAIN.SOA ---
[facility] Pain Management SOAP Note Subjective:: Patient is a pleasant 47-year-old male who presents today for medication refill and follow-up. We are currently treating the patient for degenerative disc disease of lumbar spine with lumbar radiculopathy symptoms. Today he rates his pain an 8 out of 10. Patient denies any new trauma or injury. He does state that he has a upcoming appointment with Jama Cardoza on the for evaluation of his lumbar spine. Patient states he continues to have this pain on a constant basis. He is currently managed with gabapentin 600 mg 3 times a day, Celebrex 200 mg daily and tizanidine 4 mg 3 times a day. He denies any side effects from this medication. His Shay has been reviewed and is appropriate. Review of Systems: General: No recent weight changes, no fever, no sleep disturbances Respiratory: No cough, no shortness of air, no recurring pulmonary infections Cardiovascular/peripheral vascular: No chest pain, no palpitations, no edema, no shortness of breath Gastrointestinal: No new onset incontinence, normal bowel movements reported Genitourinary: No new onset incontinence Musculoskeletal: Low back pain Psychiatric: [Normal mood/affect] Neurological: [Denies weakness in extremities], [denies balance issues] Objective:: Physical Exam: General: Alert and oriented x3, no acute distress, pleasant and cooperative Lungs: Respirations even and unlabored, symmetrical chest expansion Eyes: PERRL Musculoskeletal: Flexion and extension of lumbar [spine] somewhat guarded secondary to pain, [antalgic gait noted] Neurological: Speech clear, no gross sensory deficit Assessment:: Degenerative disc disease of lumbar spine with lumbar radiculopathy symptoms Plan:: Will refill the patient's gabapentin 600 mg 3 times a day, Celebrex 200 mg daily and tizanidine 4 mg 3 times a day and provide a 3-month supply of this medication. Patient will return to clinic in 1 month following his neurosurgery consult for reevaluation of symptoms and plan of care. Patient has been instructed to contact the clinic with any concerns before the next appointment. Dr. Hayes has reviewed this note and agrees with this plan of care. This note was dictated using voice recognition software and make contain errors or omissions. [facility] Disclaimer: The information contained in this section may have been updated after the patient was seen, as this information can be updated by other users. Medical History Abnormal ECG Asymptomatic LV dysfunction Back Pain Bilateral foot pain Degeneration of intervertebral disc of lumbar region with osteophyte of lumbar vertebra Dyslipidemia Encounter for immunization History of kidney stones Injury of finger of right hand S69.91XD SUBSEQUENT Low back pain Lumbar degenerative disc disease Neuroforaminal stenosis of lumbar spine Neuropathic pain Primary hypertension Sinus tachycardia Snoring Wrist pain, left Family History Other Diabetes Social History Smoking Status: Never smoker alcohol intake: never substance use type: denies use current occupational status: employed Travel in the last 8 weeks: None household members: family housing: house caffeine: Yes
[2023-07-26 12:42] VITALS: BP 135/63; PULSE 90; RESP 18; O2SAT 97; BMI 36.6
== END 2023-07-26 23:59 | disposition home or self-care (01) ==
PROVIDERS: PCP Family Medicine; Visit Provider Nurse Practitioner Family
DX: M51.16 Intervertebral disc disorders with radiculopathy, lumbar region (principal)
CPT/HCPCS: 99212; G0463

== ENCOUNTER 2023-08-23 09:56 | Outpatient (POV) | payer OTHER, SELFPAY ==
[2023-08-23 10:06] VITALS: BP 147/99; PULSE 81; RESP 20; BMI 36.2
--- NOTE | 2023-08-23 10:50 | A.OFFVIS_ITS ---
[facility] Pain Management SOAP Note Subjective:: Patient is a pleasant 47-year-old male who presents today for follow-up. He does state that he has been to [facility] for surgical evaluation and states at this time they were not recommending that. He states that they did talk about doing an injection however he is unsure specifically what type this was. He states he is scheduled for this tomorrow at around 1130 in [place]. Patient does also state that he did get a letter in the mail from his insurance and he is unsure even if it is covered. Patient is managed with gabapentin 600 mg 3 times a day, Celebrex 200 mg daily and tizanidine 4 mg 3 times a day from our office. He denies any side effects from this medication. His Shay has been reviewed and is appropriate. Review of Systems: General: No recent weight changes, no fever, no sleep disturbances Respiratory: No cough, no shortness of air, no recurring pulmonary infections Cardiovascular/peripheral vascular: No chest pain, no palpitations, no edema, no shortness of breath Gastrointestinal: No new onset incontinence, normal bowel movements reported Genitourinary: No new onset incontinence Musculoskeletal: Low back pain, leg pain Psychiatric: [Normal mood/affect] Neurological: [Denies weakness in extremities], [denies balance issues] Objective:: Physical Exam: General: Alert and oriented x3, no acute distress, pleasant and cooperative Lungs: Respirations even and unlabored, symmetrical chest expansion Eyes: PERRL Musculoskeletal: Flexion and extension of lumbar [spine] somewhat guarded secondary to pain, [antalgic gait noted] Neurological: Speech clear, no gross sensory deficit Assessment:: Degenerative disc disease of lumbar spine with lumbar radiculopathy symptoms Plan:: I will refill the patient's gabapentin, Celebrex and tizanidine and prescribe a 3-month supply of these medications. I have counseled the patient to let us know how his injection goes. Patient did have a denial due to not having documentation that mentions radicular symptoms or numbness and tingling. I have gone over this with the patient and recommended that he call [facility] prior to going for this injection to confirm that it was approved. Patient will return to clinic in 3 months for reevaluation of symptoms and plan of care. Patient has been instructed to contact the clinic with any concerns before the next appointment. Dr. Hayes has reviewed this note and agrees with this plan of care. This note was dictated using voice recognition software and make contain errors or omissions. [facility] Disclaimer: The information contained in this section may have been updated after the patient was seen, as this information can be updated by other users. Medical History Abnormal ECG Asymptomatic LV dysfunction Back Pain Bilateral foot pain Degeneration of intervertebral disc of lumbar region with osteophyte of lumbar vertebra Dyslipidemia Encounter for immunization History of kidney stones Injury of finger of right hand S69.91XD SUBSEQUENT Low back pain Lumbar degenerative disc disease Neuroforaminal stenosis of lumbar spine Neuropathic pain Primary hypertension Sinus tachycardia Snoring Wrist pain, left Family History Other Diabetes Social History Smoking Status: Never smoker alcohol intake: never substance use type: denies use current occupational status: other Travel in the last 8 weeks: None household members: family housing: house caffeine: Yes
== END 2023-08-23 23:59 | disposition home or self-care (01) ==
PROVIDERS: PCP Family Medicine; Visit Provider Nurse Practitioner Family
DX: M51.16 Intervertebral disc disorders with radiculopathy, lumbar region (principal)
CPT/HCPCS: 99212; G0463

== ENCOUNTER 2023-10-02 18:00 | Outpatient (CLI) | payer OTHER, SELFPAY ==
[2023-10-02 18:53] LABS: Basophils % 0.3 % (0.1-2.0); Eosinophils # 0.2 K/mm3 (0.0-0.4); Hematocrit 45.9 % (42.0-52.0); Hemoglobin 14.8 g/dL (14.1-18.0); Lymphocytes # 1.7 K/mm3 (0.7-4.5); Lymphocytes % 18.8 % (10-50); Mean Corpuscular HGB Conc 32.3 g/dL (31.8-35.4); Mean Corpuscular Hemoglobin 31.8 pg (27.0-31.2); Mean Corpuscular Volume 98.6 fl (80-94); Mean Platelet Volume 10.1 fl (7.4-10.4); Monocytes # 0.6 K/mm3 (0.1-1.0); Monocytes % 6.2 % (1.7-9.3); Neutrophils # 6.4 K/mm3 (1.8-7.8); Neutrophils % 72.6 % (37.0-80.0); Platelet Count 247 K/mm3 (142-424); Red Blood Count 4.66 M/mm3 (4.60-6.20); Red Cell Distribution Width 13.4 % (11.5-17.5); White Blood Count 8.9 K/mm3 (4.8-10.8)
[2023-10-02 19:08] LABS: Chloride 107 mmol/L (98-107); Sodium 139 mmol/L (136-145)
[2023-10-02 19:11] LABS: Alanine Aminotransferase 58 U/L (12-78); Albumin Level 4.1 g/dl (3.5-5.0); Albumin/Globulin Ratio 1.9 (1.1-1.8); Alkaline Phosphatase 84 U/L (38-126); Aspartate Amino Transferase 43 U/L (17-59); Bilirubin,Total 1.4 mg/dl (0.2-1.3); Blood Urea Nitrogen 13 mg/dl (9-20); Carbon Dioxide 27 mmol/L (22.0-30.0); Estimated Glomerular Filt Rate 91 ml/min (>60); GFR (African American) 110 ML/MIN (>60); Globulin 2.2 g/dL (1.3-3.2); Total Protein,Serum 6.3 g/dl (6.3-8.2)
[2023-10-02 19:12] LABS: Calcium 9.4 mg/dl (8.4-10.2); Glucose 86 mg/dl (74-100)
== END 2023-10-02 23:59 | disposition home or self-care (01) ==
LOC: LAB.DROPOF 10-03 12:45
PROVIDERS: PCP Family Medicine; Visit Provider Family Medicine
DX: E11.9 Type 2 diabetes mellitus without complications (principal); Z79.84 Long term (current) use of oral hypoglycemic drugs
CPT/HCPCS: 80053; 85025

== ENCOUNTER 2023-11-22 09:20 | Outpatient (POV) | payer OTHER, SELFPAY ==
[2023-11-22 09:28] VITALS: BP 158/89; PULSE 75; RESP 18; O2SAT 99; BMI 34.8
--- NOTE | 2023-11-22 10:00 | EXP.PAIN.SOA ---
[facility] Pain Management SOAP Note Subjective:: Patient is a pleasant 47-year-old male who presents today for medication refill and follow-up. Today he rates his pain a 2 out of 10. Patient states he recently had an injection at [facility] however it did not really seem to provide significant improvement however had more cramping in his legs after. Patient denies any new trauma or injury. Patient is currently managed with tizanidine 4 mg 3 times a day, Celebrex 200 mg daily and gabapentin 600 mg 3 times a day. He denies any side effects from this medication. His Shay has been reviewed and is appropriate. Review of Systems: General: No recent weight changes, no fever, no sleep disturbances Respiratory: No cough, no shortness of air, no recurring pulmonary infections Cardiovascular/peripheral vascular: No chest pain, no palpitations, no edema, no shortness of breath Gastrointestinal: No new onset incontinence, normal bowel movements reported Genitourinary: No new onset incontinence Musculoskeletal: Low back pain Psychiatric: [Normal mood/affect] Neurological: [Denies weakness in extremities], [denies balance issues] Objective:: Physical Exam: General: Alert and oriented x3, no acute distress, pleasant and cooperative Lungs: Respirations even and unlabored, symmetrical chest expansion Eyes: PERRL Musculoskeletal: Flexion and extension of lumbar [spine] somewhat guarded secondary to pain, [antalgic gait noted] Neurological: Speech clear, no gross sensory deficit Assessment:: Degenerative disc disease of lumbar spine with lumbar radiculopathy symptoms Plan:: I will refill the patient's gabapentin, Celebrex and tizanidine and provide a 3month supply of these medications. Patient will return to clinic in 3 months for reevaluation of symptoms and plan of care. Patient has been instructed to contact the clinic with any concerns before the next appointment. Dr. Hayes has reviewed this note and agrees with this plan of care. This note was dictated using voice recognition software and make contain errors or omissions. [facility] Disclaimer: The information contained in this section may have been updated after the patient was seen, as this information can be updated by other users. Medical History Dyslipidemia Encounter for immunization Wrist pain, left Injury of finger of right hand S69.91XD SUBSEQUENT Primary hypertension History of kidney stones Degeneration of intervertebral disc of lumbar region with osteophyte of lumbar vertebra Neuroforaminal stenosis of lumbar spine Lumbar degenerative disc disease Low back pain Neuropathic pain Bilateral foot pain Asymptomatic LV dysfunction Snoring Sinus tachycardia Abnormal ECG Back Pain Family History Other Diabetes Social History Smoking Status: Never smoker alcohol intake: never substance use type: denies use current occupational status: other Travel in the last 8 weeks: None household members: family housing: house caffeine: Yes
== END 2023-11-22 23:59 | disposition home or self-care (01) ==
PROVIDERS: PCP Family Medicine; Visit Provider Nurse Practitioner Family
DX: M51.16 Intervertebral disc disorders with radiculopathy, lumbar region (principal)
CPT/HCPCS: 99212; G0463

== ENCOUNTER 2024-01-15 08:49 | Outpatient (CLI) | payer OTHER, SELFPAY | END 2024-01-15 23:59 | disposition home or self-care (01) | LOC: LAB.DROPOF 01-16 12:29 | PROVIDERS: PCP Nurse Practitioner; Visit Provider Nurse Practitioner | DX: R21 Rash and other nonspecific skin eruption (principal); B95.8 Unspecified staphylococcus as the cause of diseases classified elsewhere; L60.8 Other nail disorders; L57.0 Actinic keratosis; L60.3 Nail dystrophy; L60.0 Ingrowing nail | CPT/HCPCS: 87070; 87077; 87186; 87205 ==

== ENCOUNTER 2024-02-21 10:11 | Outpatient (POV) | payer OTHER, SELFPAY ==
--- NOTE | 2024-02-21 10:46 | A.OFFVIS_ITS ---
[facility] Disclaimer: The information contained in this section may have been updated after the patient was seen, as this information can be updated by other users. Medical History Dyslipidemia Encounter for immunization Wrist pain, left Injury of finger of right hand S69.91XD SUBSEQUENT Primary hypertension History of kidney stones Degeneration of intervertebral disc of lumbar region with osteophyte of lumbar vertebra Neuroforaminal stenosis of lumbar spine Lumbar degenerative disc disease Low back pain Neuropathic pain Bilateral foot pain Asymptomatic LV dysfunction Snoring Sinus tachycardia Abnormal ECG Back Pain Family History Other Diabetes Social History Smoking Status: Never smoker alcohol intake: never substance use type: denies use current occupational status: other Travel in the last 8 weeks: None household members: family housing: house caffeine: Yes PM Subjective & Objective Subjective Subjective:: Patient is a pleasant 48-year-old male who presents today for medication refill. Today he rates his pain an 8 out of 10. He denies any new trauma or injury. He states he still doing well with his current medications. He is managed with tizanidine 4 mg 3 times a day, Celebrex 200 mg daily and gabapentin 600 mg 3 times a day. He denies any side effects. His Shay has been reviewed and is appropriate. Review of Systems: General: No recent weight changes, no fever, no sleep disturbances Respiratory: No cough, no shortness of air, no recurring pulmonary infections Cardiovascular/peripheral vascular: No chest pain, no palpitations, no edema, no shortness of breath Gastrointestinal: No new onset incontinence, normal bowel movements reported Genitourinary: No new onset incontinence Musculoskeletal: Low back pain Psychiatric: [Normal mood/affect] Neurological: [Denies weakness in extremities], [denies balance issues] Pain at rest (0-10 scale): 8 Objective Objective:: Physical Exam: General: Alert and oriented x3, no acute distress, pleasant and cooperative Lungs: Respirations even and unlabored, symmetrical chest expansion Eyes: PERRL Musculoskeletal: Flexion and extension of lumbar [spine] somewhat guarded secondary to pain, [antalgic gait noted] Neurological: Speech clear, no gross sensory deficit Has patient had previous pain injection?: No Conservative treatment options previously tried: Home exercise plan Length of treatment: Longer than 6 weeks Meds Home Medications and Allergies Home Medications ?Medication ?Instructions ?Recorded ?Confirmed ?Type ropinirole 0.25 mg tablet 0.25 mg PO HS #30 tabs 03/21/23 01/30/24 Rx albuterol sulfate 90 mcg/actuation 2 puff inhalation Q4-6H PRN 05/07/23 01/30/24 Rx aerosol inhaler shortness of breath or wheezing #8.5 grams ondansetron 4 mg disintegrating 4 mg PO Q8H PRN nausea and 08/03/23 01/30/24 Rx tablet vomiting #30 tabs fluticasone propionate 50 1 spray intranasal DAILY #16 grams 08/06/23 01/30/24 Rx mcg/actuation nasal spray,suspension glipizide 2.5 mg tablet, extended See Rx Instructions .Route 11/07/23 01/30/24 Rx release 24 hr .COMPLEX #90 tabs celecoxib 200 mg capsule 200 mg PO DAILY Pain #30 caps 11/22/23 01/30/24 Rx gabapentin 600 mg tablet 600 mg PO TID Pain #90 tabs 11/22/23 01/30/24 Rx tizanidine 4 mg tablet (Zanaflex) 4 mg PO TID Pain #90 tabs 11/22/23 01/30/24 Rx ketoconazole 2 % topical cream 1 applic topical BID athletes foot 12/24/23 01/30/24 Rx #30 grams lisinopril 5 mg tablet See Rx Instructions .Route 12/25/23 01/30/24 Rx .COMPLEX #30 tabs clobetasol 0.05 % topical cream 1 applic topical BID 2 weeks #15 01/15/24 01/30/24 Rx grams mupirocin 2 % topical ointment 1 applic topical BID infection 14 01/15/24 01/30/24 Rx days #15 grams metformin 500 mg tablet See Rx Instructions .Route 01/18/24 01/30/24 Rx .COMPLEX #180 tabs minocycline 100 mg capsule 100 mg PO BID infection 14 days 01/21/24 01/30/24 Rx #28 caps ezetimibe 10 mg tablet See Rx Instructions .Route 02/19/24 Rx .COMPLEX #90 tabs New Prescriptions to Start Prescriptions: Allergies Allergy/AdvReac Type Severity Reaction Status Date / Time bacitracin Allergy Intermediate rash Verified 01/30/24 09:22 [From Neosporin Plus] lidocaine Allergy Intermediate rash Verified 01/30/24 09:22 [From Neosporin Plus] neomycin Allergy Intermediate rash Verified 01/30/24 09:22 [From Neosporin Plus] polymyxin B Allergy Intermediate rash Verified 01/30/24 09:22 [From Neosporin Plus] pramoxine Allergy Intermediate rash Verified 01/30/24 09:22 [From Neosporin Plus] atorvastatin [From Lipitor] AdvReac Intermediate Leg cramps Verified 01/30/24 09:22 Assessment and Plan *Assessment and plan (1) Degenerative joint disease (DJD) of lumbar spine: Status: Chronic Category: Medical Code(s): M47.816 - Spondylosis without myelopathy or radiculopathy, lumbar region (2) Lumbar radiculopathy: Status: Chronic Category: Medical Code(s): M54.16 - Radiculopathy, lumbar region Plan I will refill his tizanidine, Celebrex and gabapentin and provide a 90-day supply of these medications. Patient will return to clinic in 3 months for reevaluation of symptoms and plan of care. Patient has been instructed to contact the clinic with any concerns before the next appointment. Dr. Hyaes has reviewed this note and agrees with this plan of care. This note was dictated using voice recognition software and make contain errors or omissions. All injections are used with Lidocaine or Bupivacaine and Depo Medrol.
[2024-02-21 10:57] VITALS: BP 113/73; PULSE 78; RESP 18; O2SAT 98; BMI 37.6
== END 2024-02-21 23:59 | disposition home or self-care (01) ==
PROVIDERS: PCP Family Medicine; Visit Provider Nurse Practitioner Family
DX: M47.26 Other spondylosis with radiculopathy, lumbar region (principal); Z79.899 Other long term (current) drug therapy
CPT/HCPCS: 99212; G0463

== ENCOUNTER 2024-03-03 10:21 | Outpatient (CLI) | payer OTHER, SELFPAY ==
[2024-03-03 19:46] LABS: Basophils # 0.1 K/mm3 (0-0.2); Basophils % 0.5 % (0.1-2.0); Eosinophils # 0.1 K/mm3 (0.0-0.4); Eosinophils % 1.2 % (0.1-12.0); Hematocrit 53.8 % (42.0-52.0); Hemoglobin 17.1 g/dL (14.1-18.0); Lymphocytes # 1.7 K/mm3 (0.7-4.5); Lymphocytes % 15.1 % (10-50); Mean Corpuscular HGB Conc 31.7 g/dL (31.8-35.4); Mean Corpuscular Hemoglobin 31.9 pg (27.0-31.2); Mean Corpuscular Volume 100.5 fl (80-94); Mean Platelet Volume 9.6 fl (7.4-10.4); Monocytes # 0.7 K/mm3 (0.1-1.0); Monocytes % 6.3 % (1.7-9.3); Neutrophils # 8.4 K/mm3 (1.8-7.8); Neutrophils % 76.8 % (37.0-80.0); Platelet Count 285 K/mm3 (142-424); Red Blood Count 5.36 M/mm3 (4.60-6.20); Red Cell Distribution Width 13.2 % (11.5-17.5); White Blood Count 10.9 K/mm3 (4.8-10.8)
[2024-03-03 20:13] LABS: Alanine Aminotransferase 89 U/L (12-78); Albumin Level 4.7 g/dl (3.5-5.0); Albumin/Globulin Ratio 1.7 (1.1-1.8); Alkaline Phosphatase 94 U/L (38-126); Anion Gap 12.7 mEq/L (5-15); Aspartate Amino Transferase 64 U/L (17-59); Bilirubin,Total 2.7 mg/dl (0.2-1.3); Blood Urea Nitrogen 19 mg/dl (9-20); Calcium 9.6 mg/dl (8.4-10.2); Carbon Dioxide 22 mmol/L (22.0-30.0); Chloride 105 mmol/L (98-107); Estimated Glomerular Filt Rate 80 ml/min (>60); GFR (African American) 97 ML/MIN (>60); Globulin 2.8 g/dL (1.3-3.2); Glucose 99 mg/dl (74-100); Potassium 3.7 mmoL/L (3.5-5.1); Sodium 136 mmol/L (136-145); Total Protein,Serum 7.5 g/dl (6.3-8.2)
[2024-03-05 05:11] LABS: HBsAg Screen Negative (Negative); HCV Ab Non Reactive (Non Reactive); Hep A Ab, IGM Negative (Negative); Hep B Core Ab, IgM Negative (Negative)
== END 2024-03-03 23:59 | disposition home or self-care (01) ==
LOC: LAB.DROPOF 03-04 10:21
PROVIDERS: PCP Nurse Practitioner; Visit Provider Nurse Practitioner
DX: R11.10 Vomiting, unspecified (principal)
CPT/HCPCS: 80053; 80074; 85025

== ENCOUNTER 2024-03-10 12:25 | Outpatient (CLI) | payer OTHER, SELFPAY ==
[2024-03-10 19:45] LABS: Basophils # 0.1 K/mm3 (0-0.2); Basophils % 0.7 % (0.1-2.0); Eosinophils # 0.1 K/mm3 (0.0-0.4); Eosinophils % 1.2 % (0.1-12.0); Hematocrit 49.8 % (42.0-52.0); Hemoglobin 16.8 g/dL (14.1-18.0); Lymphocytes # 2.1 K/mm3 (0.7-4.5); Lymphocytes % 19.8 % (10-50); Mean Corpuscular HGB Conc 33.7 g/dL (31.8-35.4); Mean Corpuscular Hemoglobin 31.5 pg (27.0-31.2); Mean Corpuscular Volume 93.4 fl (80-94); Mean Platelet Volume 10.5 fl (7.4-10.4); Monocytes # 0.7 K/mm3 (0.1-1.0); Monocytes % 7.1 % (1.7-9.3); Neutrophils # 7.5 K/mm3 (1.8-7.8); Neutrophils % 71.3 % (37.0-80.0); Platelet Count 273 K/mm3 (142-424); Red Blood Count 5.34 M/mm3 (4.60-6.20); Red Cell Distribution Width 12.9 % (11.5-17.5); White Blood Count 10.5 K/mm3 (4.8-10.8)
[2024-03-10 20:49] LABS: Alanine Aminotransferase 63 U/L (12-78); Albumin Level 4.7 g/dl (3.5-5.0); Albumin/Globulin Ratio 1.6 (1.1-1.8); Alkaline Phosphatase 86 U/L (38-126); Aspartate Amino Transferase 51 U/L (17-59); Bilirubin,Total 1.3 mg/dl (0.2-1.3); Blood Urea Nitrogen 16 mg/dl (9-20); Carbon Dioxide 27 mmol/L (22.0-30.0); Chloride 101 mmol/L (98-107); Estimated Glomerular Filt Rate 59 ml/min (>60); GFR (African American) 72 ML/MIN (>60); Glucose 103 mg/dl (74-100); Sodium 139 mmol/L (136-145); Total Protein,Serum 7.7 g/dl (6.3-8.2)
== END 2024-03-10 23:59 | disposition home or self-care (01) ==
LOC: LAB.DROPOF 03-11 10:09
PROVIDERS: PCP Nurse Practitioner; Visit Provider Nurse Practitioner
DX: R11.10 Vomiting, unspecified (principal); R74.8 Abnormal levels of other serum enzymes; R05.9 Cough, unspecified
CPT/HCPCS: 80053; 85025

== ENCOUNTER 2024-03-14 09:58 | Outpatient (CLI) | payer OTHER, SELFPAY ==
--- NOTE | 2024-03-14 10:02 | XR_ITS ---
FINAL REPORT CLINICAL HISTORY: cough COMPARISON: 10/02/2017 FINDINGS: Two views of the chest were obtained. The heart size and pulmonary vascularity are within normal limits. The mediastinum is normal. No acute pulmonary abnormality is identified. There is no pneumothorax. The bony thorax is intact. IMPRESSION: No active cardiopulmonary disease. Reviewed, Interpreted and Dictated by Jb Funez III, MD Transcribed by Ladonna Ghosh Authenticated and [facility]
== END 2024-03-14 23:59 | disposition home or self-care (01) ==
PROVIDERS: PCP Family Medicine; Visit Provider Nurse Practitioner
DX: R05.9 Cough, unspecified (principal)
CPT/HCPCS: 71046

== ENCOUNTER 2024-03-17 10:23 | Outpatient (CLI) | payer OTHER, SELFPAY ==
[2024-03-17 18:44] LABS: Basophils % 0.4 % (0.1-2.0); Eosinophils # 0.2 K/mm3 (0.0-0.4); Eosinophils % 2.3 % (0.1-12.0); Hematocrit 44.7 % (42.0-52.0); Hemoglobin 15.2 g/dL (14.1-18.0); Lymphocytes # 1.4 K/mm3 (0.7-4.5); Mean Corpuscular HGB Conc 33.9 g/dL (31.8-35.4); Mean Corpuscular Hemoglobin 31.7 pg (27.0-31.2); Mean Corpuscular Volume 93.5 fl (80-94); Mean Platelet Volume 10.3 fl (7.4-10.4); Monocytes # 0.5 K/mm3 (0.1-1.0); Monocytes % 6.4 % (1.7-9.3); Neutrophils # 5.4 K/mm3 (1.8-7.8); Neutrophils % 71.9 % (37.0-80.0); Platelet Count 250 K/mm3 (142-424); Red Blood Count 4.78 M/mm3 (4.60-6.20); White Blood Count 7.6 K/mm3 (4.8-10.8)
== END 2024-03-17 23:59 | disposition home or self-care (01) ==
LOC: LAB.DROPOF 03-18 10:23
PROVIDERS: PCP Nurse Practitioner; Visit Provider Nurse Practitioner
DX: J06.9 Acute upper respiratory infection, unspecified (principal)
CPT/HCPCS: 85025

== ENCOUNTER 2024-04-28 10:44 | Outpatient (CLI) | payer OTHER, SELFPAY ==
[2024-04-28 19:27] LABS: HIV (1&2) Antibody Rapid NONREACTIVE (NONREACTIVE)
[2024-04-28 19:50] LABS: Chol/HDL Ratio 4.9 (1-3.5); Cholesterol 185 mg/dl (140-200); HDL Cholesterol 38 mg/dl (40-60); Triglycerides 295 mg/dl (30-150); VLDL Cholesterol 59 mg/dL (0-40)
[2024-04-28 20:01] LABS: Direct LDL Cholesterol 109.84 mg/dL (100-129)
[2024-04-28 20:11] LABS: Hemoglobin A1C 6.6 % (4.0-6.0)
[2024-04-30 08:22] LABS: HCV Ab Non Reactive (Non Reactive)
== END 2024-04-28 23:59 | disposition home or self-care (01) ==
LOC: LAB.DROPOF 04-29 08:44
PROVIDERS: PCP Family Medicine; Visit Provider Family Medicine
DX: R74.8 Abnormal levels of other serum enzymes (principal); E11.9 Type 2 diabetes mellitus without complications; Z11.59 Encounter for screening for other viral diseases; Z11.4 Encounter for screening for human immunodeficiency virus [HIV]; Z79.84 Long term (current) use of oral hypoglycemic drugs
CPT/HCPCS: 80061; 83036; 86803; 87389

== ENCOUNTER 2024-05-22 09:53 | Outpatient (POV) | payer OTHER, SELFPAY ==
--- NOTE | 2024-05-22 10:18 | EXP.PAIN.SOA ---
[facility] Disclaimer: The information contained in this section may have been updated after the patient was seen, as this information can be updated by other users. 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 Lumbar degenerative disc disease Low back pain Neuropathic pain Bilateral foot pain Asymptomatic LV dysfunction Snoring Sinus tachycardia Abnormal ECG Back Pain Surgical History H/O lithotripsy Family History Other Diabetes Social History Smoking Status: Never smoker alcohol intake: never substance use type: denies use current occupational status: other Travel in the last 8 weeks: None household members: family housing: house caffeine: Yes PM Subjective & Objective Subjective Subjective:: Patient is a pleasant 48-year-old male who presents today for 3-month medication refill. Today he does rate his pain a 10 out of 10. He denies any new trauma or injury however does state that maybe the weather along with the fact that he has been having worsening pain in his low back along the right side that just started on Sunday. Patient is currently managed with tizanidine 4 mg 3 times a day, Celebrex 200 mg daily and gabapentin 600 mg 3 times a day. He denies any side effects from this medication. He does also make mention that he has recently had updated x-ray imaging of his upper back and that his primary care did state that he has osteoporosis. His Shay has been reviewed and is appropriate. Review of Systems: General: No recent weight changes, no fever, no sleep disturbances Respiratory: No cough, no shortness of air, no recurring pulmonary infections Cardiovascular/peripheral vascular: No chest pain, no palpitations, no edema, no shortness of breath Gastrointestinal: No new onset incontinence, normal bowel movements reported Genitourinary: No new onset incontinence Musculoskeletal: Low back pain Psychiatric: [Normal mood/affect] Neurological: [Denies weakness in extremities], [denies balance issues] Pain at rest (0-10 scale): 10 Objective Objective:: Physical Exam: General: Alert and oriented x3, no acute distress, pleasant and cooperative Lungs: Respirations even and unlabored, symmetrical chest expansion Eyes: PERRL Musculoskeletal: Flexion and extension of lumbar [spine] somewhat guarded secondary to pain, [antalgic gait noted] Neurological: Speech clear, no gross sensory deficit Has patient had previous pain injection?: No Conservative treatment options previously tried: Prescription medications Length of treatment: Longer than 12 weeks Meds Home Medications and Allergies Home Medications ?Medication ?Instructions ?Recorded ?Confirmed ?Type ropinirole 0.25 mg tablet 0.25 mg PO HS #30 tabs 03/21/23 04/28/24 Rx glipizide 2.5 mg tablet, extended See Rx Instructions .Route 11/07/23 04/28/24 Rx release 24 hr .COMPLEX #90 tabs metformin 500 mg tablet See Rx Instructions .Route 01/18/24 04/28/24 Rx .COMPLEX #180 tabs ezetimibe 10 mg tablet See Rx Instructions .Route 02/19/24 04/28/24 Rx .COMPLEX #90 tabs celecoxib 200 mg capsule 200 mg PO DAILY Pain #90 caps 02/21/24 04/28/24 Rx gabapentin 600 mg tablet 600 mg PO TID Pain #270 tabs 02/21/24 04/28/24 Rx tizanidine 4 mg tablet (Zanaflex) 4 mg PO TID Pain #270 tabs 02/21/24 04/28/24 Rx clobetasol 0.05 % topical cream 1 applic topical BID 03/10/24 04/28/24 History losartan 100 mg tablet 100 mg PO DAILY #90 tabs 04/28/24 04/28/24 Rx benzonatate 200 mg capsule 200 mg PO TID PRN cough #60 caps 05/15/24 Rx New Prescriptions to Start Prescriptions: Allergies Allergy/AdvReac Type Severity Reaction Status Date / Time bacitracin (From Neosporin Allergy Intermediate rash Verified 04/28/24 08:58 Plus) lidocaine (From Neosporin Allergy Intermediate rash Verified 04/28/24 08:58 Plus) neomycin (From Neosporin Allergy Intermediate rash Verified 04/28/24 08:58 Plus) polymyxin B (From Neosporin Allergy Intermediate rash Verified 04/28/24 08:58 Plus) pramoxine (From Neosporin Allergy Intermediate rash Verified 04/28/24 08:58 Plus) atorvastatin (From Lipitor) AdvReac Intermediate Leg cramps Verified 04/28/24 08:58 Assessment and Plan *Assessment and plan (1) Lumbar degenerative disc disease: Status: Chronic Category: Medical Code(s): M51.369 - Other intervertebral disc degeneration, lumbar region without mention of lumbar back pain or lower extremity pain (2) Low back pain: Status: Chronic Qualifiers: Chronicity: chronic Back pain laterality: midline Sciatica presence: without sciatica Qualified Code(s): M54.5 - Low back pain; G89.29 - Other chronic pain Category: Medical Code(s): M54.50 - Low back pain, unspecified (3) Degeneration of intervertebral disc of lumbar region with osteophyte of lumbar vertebra: Status: Chronic Category: Medical Code(s): M51.369 - Other intervertebral disc degeneration, lumbar region without mention of lumbar back pain or lower extremity pain; M25.78 - Osteophyte, vertebrae Plan I will refill the patient's tizanidine, Celebrex and gabapentin and provide a 90-day supply of this medication. I will also send in a 5-day dose of oral prednisone 20 mg twice daily. Patient was counseled that we can always look at injection therapy if this continues to be a longstanding pain. Patient acknowledges understanding agrees with plan of care. Patient will return to clinic in 3 months for reevaluation of symptoms and plan of care. Risks and benefits of the medication have been explained in detail to the patient. The patient does understand the risk of dependence on the medication when given over a prolonged period. Patient has been advised of risks of oversedation with the prescribed medication. Narcan has been offered to the paitent in the event of oversedation. Patient has been advised that a family member should also be educated regarding administration of Narcan. The patient has been advised to consult with his/her primary care provider and pharmacist regarding drug-drug interaction of medications currently prescribed. Patient has been prescribed a controlled substance after being counseled on the medication, medication safety, and possible side effects. Opioid contract was reviewed and signed by the patient, and that they have agreed to all of the terms set forth by our compliance program. A UDS is needed to verify patient's compliance with our office pain contract. This is ordered based off specific treatments related to chronic pain with the potential to abuse certain medications. Patient has been instructed to contact the clinic with any concerns before the next appointment. Dr. Hayes has reviewed this note and agrees with this plan of care. This note was dictated using voice recognition software and make contain errors or omissions.
[2024-05-22 10:42] VITALS: BP 157/98; PULSE 104; RESP 16; O2SAT 97; BMI 36.1
== END 2024-05-22 23:59 | disposition home or self-care (01) ==
PROVIDERS: PCP Family Medicine; Visit Provider Nurse Practitioner Family
DX: M51.369 Other intervertebral disc degeneration, lumbar region without mention of lumbar back pain or lower extremity pain (principal); G89.29 Other chronic pain; M25.78 Osteophyte, vertebrae; M54.50 Low back pain, unspecified
CPT/HCPCS: 99212; G0463

== ENCOUNTER 2024-07-28 12:20 | Outpatient (CLI) | payer OTHER, SELFPAY ==
[2024-07-28 22:47] LABS: Chloride 101 mmol/L (98-107)
[2024-07-28 22:48] LABS: Albumin Level 4.5 g/dl (3.5-5.0); Potassium 4.3 mmoL/L (3.5-5.1); Sodium 137 mmol/L (136-145)
[2024-07-28 22:50] LABS: Alanine Aminotransferase 136 U/L (12-78); Anion Gap 17.3 mEq/L (5-15); Aspartate Amino Transferase 114 U/L (17-59); Blood Urea Nitrogen 15 mg/dl (9-20); Carbon Dioxide 23 mmol/L (22.0-30.0); Estimated Glomerular Filt Rate 121 ml/min (>60); GFR (African American) 146 ML/MIN (>60)
[2024-07-28 22:51] LABS: Albumin/Globulin Ratio 1.9 (1.1-1.8); Alkaline Phosphatase 154 U/L (38-126); Calcium 9.3 mg/dl (8.4-10.2); Globulin 2.4 g/dL (1.3-3.2); Glucose 259 mg/dl (74-100); Total Protein,Serum 6.9 g/dl (6.3-8.2)
== END 2024-07-28 23:59 | disposition home or self-care (01) ==
LOC: LAB.DROPOF 07-29 16:15
PROVIDERS: PCP Family Medicine; Visit Provider Family Medicine
DX: E11.9 Type 2 diabetes mellitus without complications (principal)
CPT/HCPCS: 80053

== ENCOUNTER 2024-08-04 22:57 | Outpatient (CLI) | payer OTHER, SELFPAY ==
[2024-08-05 11:30] LABS: Creatinine,Urine Random 238 mg/dL (Not Estab.)
[2024-08-05 11:32] LABS: Microalbumin/Creatinine Ratio 16.5
== END 2024-08-04 23:59 | disposition home or self-care (01) ==
LOC: LAB.DROPOF 23:01
PROVIDERS: PCP Family Medicine; Visit Provider Family Medicine
DX: E11.9 Type 2 diabetes mellitus without complications (principal)
CPT/HCPCS: 82043; 82570

== ENCOUNTER 2024-08-20 08:44 | Outpatient (POV) | payer OTHER, SELFPAY ==
--- NOTE | 2024-08-20 08:56 | EXP.PAIN.SOA ---
[facility] Disclaimer: The information contained in this section may have been updated after the patient was seen, as this information can be updated by other users. 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 Lumbar degenerative disc disease Low back pain Neuropathic pain Bilateral foot pain Asymptomatic LV dysfunction Snoring Sinus tachycardia Abnormal ECG Back Pain Surgical History H/O lithotripsy Family History Other Diabetes Social History Smoking Status: Never smoker alcohol intake: never substance use type: denies use current occupational status: other Travel in the last 8 weeks: None household members: family housing: house caffeine: Yes Have you lived/traveled outside [place] in past 30 days?: No Contact w/someone who lives/traveled outside [place] past 30 days?: No Exposure to someone with infectious disease in past 14 days?: No Do you have a fever (greater than 100.4 F or 38 C)?: No Have you tested positive for COVID-19: No Exposed to someone with COVID-19 in past 14 days?: No Do you have a sore throat?: No Do you have a cough?: No Do you have any weakness?: No Do you have any diarrhea?: No Are you experiencing any unusual bleeding?: No Do you have any muscle aches/pain?: No Do you have any abdominal pain?: No Are you experiencing loss of taste or smell?: No PM Subjective & Objective Subjective Subjective:: Patient is a pleasant 48-year-old male who presents today for medication refill on 3 months follow-up. Today he rates his pain a 10 out of 10. Patient did have elevated blood pressure today as well. He does state that he believes it is just more so due to the fact that there is going to be an incoming storm later today that he can feel it. Patient denies any new falls or injuries. He is currently managed with tizanidine 4 mg 3 times a day, Celebrex 200 mg daily and gabapentin 600 mg 3 times a day. He denies any side effects. His Shay has been reviewed and is appropriate. Review of Systems: General: No recent weight changes, no fever, no sleep disturbances Respiratory: No cough, no shortness of air, no recurring pulmonary infections Cardiovascular/peripheral vascular: No chest pain, no palpitations, no edema, no shortness of breath Gastrointestinal: No new onset incontinence, normal bowel movements reported Genitourinary: No new onset incontinence Musculoskeletal: Low back pain Psychiatric: [Normal mood/affect] Neurological: [Denies weakness in extremities], [denies balance issues] Pain at rest (0-10 scale): 10 Objective Objective:: Physical Exam: General: Alert and oriented x3, no acute distress, pleasant and cooperative Lungs: Respirations even and unlabored, symmetrical chest expansion Eyes: PERRL Musculoskeletal: Flexion and extension of lumbar [spine] somewhat guarded secondary to pain, [antalgic gait noted] Neurological: Speech clear, no gross sensory deficit Has patient had previous pain injection?: No Conservative treatment options previously tried: Home exercise plan Length of treatment: Longer than 12 weeks Meds Home Medications and Allergies Home Medications ?Medication ?Instructions ?Recorded ?Confirmed ?Type ropinirole 0.25 mg tablet 0.25 mg PO HS #30 tabs 03/21/23 07/28/24 Rx glipizide 2.5 mg tablet, extended See Rx Instructions .Route 11/07/23 07/28/24 Rx release 24 hr .COMPLEX #90 tabs ezetimibe 10 mg tablet See Rx Instructions .Route 02/19/24 07/28/24 Rx .COMPLEX #90 tabs clobetasol 0.05 % topical cream 1 applic topical BID 03/10/24 07/28/24 History losartan 100 mg tablet 100 mg PO DAILY #90 tabs 04/28/24 07/28/24 Rx celecoxib 200 mg capsule 200 mg PO DAILY Pain #90 caps 05/22/24 07/28/24 Rx gabapentin 600 mg tablet 600 mg PO TID Pain #270 tabs 05/22/24 07/28/24 Rx prednisone 20 mg tablet 20 mg PO BID #10 tabs 05/22/24 07/28/24 Rx tizanidine 4 mg tablet (Zanaflex) 4 mg PO TID Pain #270 tabs 05/22/24 07/28/24 Rx benzonatate 200 mg capsule 200 mg PO TID PRN cough #90 caps 07/28/24 07/28/24 Rx metformin 1,000 mg tablet 1,000 mg PO BID #180 tabs 07/28/24 07/28/24 Rx tirzepatide 2.5 mg/0.5 mL 2.5 mg (0.5 mL) SQ WEEKLY #2.5 mL 07/28/24 07/28/24 Rx subcutaneous pen injector (Tiburciouncolleenro) New Prescriptions to Start Prescriptions: Allergies Allergy/AdvReac Type Severity Reaction Status Date / Time bacitracin (From Neosporin Allergy Intermediate rash Verified 07/28/24 10:23 Plus) lidocaine (From Neosporin Allergy Intermediate rash Verified 07/28/24 10:23 Plus) neomycin (From Neosporin Allergy Intermediate rash Verified 07/28/24 10:23 Plus) polymyxin B (From Neosporin Allergy Intermediate rash Verified 07/28/24 10:23 Plus) pramoxine (From Neosporin Allergy Intermediate rash Verified 07/28/24 10:23 Plus) atorvastatin (From Lipitor) AdvReac Intermediate Leg cramps Verified 07/28/24 10:23 Assessment and Plan *Assessment and plan (1) Lumbar radiculopathy: Status: Chronic Category: Medical Code(s): M54.16 - Radiculopathy, lumbar region (2) Degenerative joint disease (DJD) of lumbar spine: Status: Chronic Category: Medical Code(s): M47.816 - Spondylosis without myelopathy or radiculopathy, lumbar region Plan I will refill his Celebrex, gabapentin and tizanidine and provide a 3-month supply of these medications. Patient was counseled if anything changes and he feels like his pain is increased and would like some injections to please call us back and let us know and we can move up his appointment. Patient acknowledges understanding agrees with plan of care. Patient will return to clinic in 3 months. Patient has been instructed to contact the clinic with any concerns before the next appointment. Dr. Hayes has reviewed this note and agrees with this plan of care. This note was dictated using voice recognition software and make contain errors or omissions. All injections are used with Lidocaine, Bupivacaine and Depo Medrol. Occasionally urine drug screen is needed to verify patient's compliance with our office pain contract. This is ordered based off specific treatments related to chronic pain with the potential to abuse certain medications.
[2024-08-20 09:27] VITALS: BP 137/95; BP 138/95; PULSE 84; RESP 14; O2SAT 96; BMI 39.0
== END 2024-08-20 23:59 | disposition home or self-care (01) ==
PROVIDERS: PCP Family Medicine; Visit Provider Nurse Practitioner Family
DX: M47.26 Other spondylosis with radiculopathy, lumbar region (principal)
CPT/HCPCS: 99212; G0463

== ENCOUNTER 2024-11-02 06:09 | Emergency (ER) | payer OTHER, SELFPAY ==
[2024-11-02 06:16] VITALS: BP 136/96; PULSE 94; RESP 20; TEMP 36.6; O2SAT 98; BMI 40.3
--- NOTE | 2024-11-02 06:29 | HMH.EDGENADL ---
Discharge Plan Disposition Patient Disposition: Home, Self-Care Condition: Good Prescriptions Prescriptions: New ondansetron 4 mg tablet,disintegrating 4 mg PO Q6H PRN (Reason: nausea and vomiting) Qty: 10 0RF No Action clobetasol 0.05 % cream 1 applic topical BID benzonatate 200 mg capsule 200 mg PO TID PRN (Reason: cough) Qty: 90 3RF metformin 1,000 mg tablet 1,000 mg PO BID Qty: 180 3RF losartan 100 mg tablet 100 mg PO DAILY Qty: 90 3RF glipizide 2.5 mg tablet extended release 24hr See Rx Instructions .ROUTE .COMPLEX Qty: 90 1RF Dose Instruction: Take 1 tablet by mouth once daily for Diabetes Rx Instructions: Take 1 tablet by mouth once daily for Diabetes ezetimibe 10 mg tablet See Rx Instructions .ROUTE .COMPLEX Qty: 90 2RF Dose Instruction: Take 1 Tablet by mouth once daily for cholesterol. Rx Instructions: Take 1 Tablet by mouth once daily for cholesterol. celecoxib 200 MG capsule 200 mg PO DAILY Qty: 90 0RF gabapentin 600 mg tablet 600 mg PO TID Qty: 270 0RF tizanidine [Zanaflex] 4 mg tablet 4 mg PO TID Qty: 270 0RF ropinirole 0.25 mg tablet 0.25 mg PO HS Qty: 30 0RF Rx Instructions: administer 1-3 hours before bedtime Referrals Follow up/Referrals: Nick Lynch MD [Primary Care Provider, [facility]] - See instructions Referral Note: Hyperbilirubinemia without jaundice, transaminitis similar to prior. Please recheck labs Activity Restrictions/Add. Instructions Additional Instructions/Restrictions: Your evaluated in the ER and are appropriate for discharge at this time. Take the prescribed ondansetron as directed for nausea and vomiting. Make an appointment with your primary care doctor for reevaluation in 1 to 2 days. They should recheck your labs including your bilirubin. Drink plenty of fluids including water, Gatorade, Pedialyte to stay well-hydrated. Return to the ER with any new, worsening, or otherwise concerning symptoms. Clinical Impressions Clinical Impression: Nausea & vomiting, Hyperbilirubinemia Instructions Patient Instructions: DI for Diarrhea and Traveler's Diarrhea -- Adult, DI for Diarrhea and Traveler's Diarrhea -- Child, DI for Nausea -- Adult, DI for Nausea -- Child Print Language Print Language: Macedonian Discharge ED Provider: Joel Brandon General Adult HPI General Chief complaint: Nausea/Vomiting/Diarrhea Stated complaint: throwing up Time Seen by Provider: 11/02/24 06:21 Mode of Arrival: Ambulatory Source of Information: Patient Description of Symptoms (Recalled from ER Triage Doc. by RN): patient c/o vomting since Sunday. Denies any fever, diarrhea. History of Present Illness HPI narrative: 48-year-old male with history of diabetes on metformin and glipizide as well as's hypertension on losartan presents to the ER with 2 days of nausea and vomiting. Patient is occasionally able to keep down some things like crackers and water but reports for the most part when he takes anything by mouth he has vomiting. He is not having any abdominal pain, no diarrhea or constipation, last bowel movement was yesterday and he reports it was normal. No dysuria or hematuria. No fevers or chills. Patient has had a cough for a few days as well. He reports his chest is sore from vomiting. Patient reports he thinks it is a virus and with just like to know what it is . No other complaints or concerns. He reports this morning he was able to tolerate his normal morning medications with water without vomiting. Related Data Home Medications ?Medication ?Instructions ?Recorded ?Confirmed clobetasol 0.05 % topical cream 1 applic topical BID 03/10/24 10/20/24 Previous Rx's ?Medication ?Instructions ?Recorded ropinirole 0.25 mg tablet 0.25 mg PO HS #30 tabs 03/21/23 glipizide 2.5 mg tablet, extended See Rx Instructions .Route 11/07/23 release 24 hr .COMPLEX #90 tabs ezetimibe 10 mg tablet See Rx Instructions .Route 02/19/24 .COMPLEX #90 tabs benzonatate 200 mg capsule 200 mg PO TID PRN cough #90 caps 07/28/24 metformin 1,000 mg tablet 1,000 mg PO BID #180 tabs 07/28/24 celecoxib 200 mg capsule 200 mg PO DAILY Pain #90 caps 08/20/24 gabapentin 600 mg tablet 600 mg PO TID Pain #270 tabs 08/20/24 tizanidine 4 mg tablet (Zanaflex) 4 mg PO TID Pain #270 tabs 03/19/25 losartan 100 mg tablet 100 mg PO DAILY #90 tabs 10/20/24 ondansetron 4 mg disintegrating 4 mg PO Q6H PRN nausea and 11/02/24 tablet vomiting #10 tabs Allergies Allergy/AdvReac Type Severity Reaction Status Date / Time bacitracin (From Neosporin Allergy Intermediate rash Verified 10/20/24 10:29 Plus) lidocaine (From Neosporin Allergy Intermediate rash Verified 10/20/24 10:29 Plus) neomycin (From Neosporin Allergy Intermediate rash Verified 10/20/24 10:29 Plus) polymyxin B (From Neosporin Allergy Intermediate rash Verified 10/20/24 10:29 Plus) pramoxine (From Neosporin Allergy Intermediate rash Verified 10/20/24 10:29 Plus) atorvastatin (From Lipitor) AdvReac Intermediate Leg cramps Verified 10/20/24 10:29 PFSH PFSH Disclaimer: The information contained in this section may have been updated after the patient was seen, as this information can be updated by other users. 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 Lumbar degenerative disc disease Low back pain Neuropathic pain Bilateral foot pain Asymptomatic LV dysfunction Snoring Sinus tachycardia Abnormal ECG Back Pain Surgical History H/O lithotripsy Family History Other Diabetes Social History (Updated 10/20/24 @ 10:30 by Shaniqua Sears MA) Smoking Status: Never smoker alcohol intake: never substance use type: denies use current occupational status: other Travel in the last 8 weeks?: None household members: family housing: house caffeine: Yes Have you lived/traveled outside US in past 30 days?: No Contact w/someone who lives/traveled outside US past 30 days?: No Exposure to someone with infectious disease in past 14 days?: No Do you have a fever (greater than 100.4 F or 38 C)?: No Have you tested positive for COVID-19?: No Exposed to someone with COVID-19 in past 14 days?: No Do you have a sore throat?: No Do you have a cough?: No Do you have any weakness?: No Do you have any diarrhea?: No Are you experiencing any unusual bleeding?: No Do you have any muscle aches/pain?: No Do you have any abdominal pain?: No Are you experiencing loss of taste or smell?: No Other Medical History Have you received the Flu Vaccine for this season: Yes Have you received the Pneumonia Vaccine: No ROS Obtained: Yes Systems reviewed as appropriate & no additional complaints except as documented Per HPI Physical Exam General General appearance: alert and in no apparent distress Head Head exam: atraumatic and normocephalic Eye Eye exam: Present PERRL and EOMI ENT ENT exam: Present mucous membranes moist Neck Neck exam: Present normal inspection and full ROM Chest Chest inspection: Present symmetric chest wall rise Respiratory Respiratory exam: Present normal lung sounds bilaterally; Absent respiratory distress, wheezes or stridor Cardiovascular Cardiovascular exam: Present regular rate and normal rhythm Abdominal Exam Abdominal exam: Present soft; Absent distention, tenderness, guarding or rebound Extremities Exam Extremities exam: Present full ROM Neurological Exam Neurological exam: Present alert and oriented X3; Absent motor sensory deficit Psychiatric Psychiatric exam: Present normal affect and normal mood Skin Skin exam: Present warm and dry Medical Decision Making Medical Records Medical records reviewed: Yes I reviewed the patient's medical records. Screening: Per USPSTF and CDC recommendations, given the prevalence of disease in our region, it is our hospital?s policy to screen for HIV and viral Hepatitis for all patients aged 18 and over and those with ongoing risk factors. MR Comment: Most recent A1c on 10/20/2024 was 7.3 Shay Inquiry Pt receiving controlled substance: No Vital Signs: 11/02/24 06:16 11/02/24 06:30 11/02/24 06:45 Temperature 98 F Temperature Source Oral Pulse Rate 93 H 79 Pulse Rate [Left] 94 H Respiratory Rate 20 Blood Pressure 121/85 Blood Pressure [Right Arm] 136/96 H Blood Pressure Mean [Right Arm] 109 Blood Pressure Source [Right Arm] Automatic Cuff Blood Pressure Position [Right Arm] Sitting 02 Sat by Pulse Oximetry 98 97 96 Oxygen Delivery Method Room Air Lab Data Lab Results 11/02/24 06:32: WBC 12.2 H, RBC 4.97, Hgb 15.6, Hct 46.4, MCV 93.4, MCH 31.4 H, MCHC 33.6, RDW 13.2, Plt Count 290, MPV 11.0 H, Neut % (Auto) 77.2, Lymph % (Auto) 13.4, [place] % (Auto) 7.3, Eos % (Auto) 1.4, Baso % (Auto) 0.4, Neut # (Auto) 9.4 H, Lymph # (Auto) 1.6, [place] # (Auto) 0.9, Eos # (Auto) 0.2, Baso # (Auto) 0.1, VBG pH 7.44 H, VBG pCO2 31.5 L, VBG pO2 82.8 H, VBG HCO3 21.0 L, VBG Total CO2 22.0 L, VBG O2 Saturation 96.6 H, VBG Base Excess -3.1 L, VBG Lactic Acid 2.0, Sodium 139, Potassium 3.8, Chloride 104, Carbon Dioxide 25, Anion Gap 13.8, BUN 16, Creatinine 1.00, Estimated Creat Clear 165, Estimated GFR 80, Est GFR ( Amer) 97, Glucose 218 H, Calcium 9.3, Total Bilirubin 2.4 H, AST 117 H, ALT 147 H, Alkaline Phosphatase 91, Total Protein 7.7, Albumin 4.5, Globulin 3.2, Albumin/Globulin Ratio 1.4, Lipase 84, Acetone Level None detected 11/02/24 06:32 11/02/24 06:32 Orders (Tests/Meds): ED MEDICATIONS Discontinued Medications Generic Name Dose Route Start Last Admin Trade Name Asha PRN Reason Stop Dose Admin Lactated Ringer's 1,000 mls @ 999 mls/hr 11/02/24 06:22 11/02/24 06:31 Lactated Ringer's 1000 Ml Bag IV 11/02/24 07:22 999 mls/hr .Q1H1M ONE Administration Ondansetron HCl 4 mg 11/02/24 06:22 11/02/24 06:31 Ondansetron 4mg/2ml Vial IV 11/02/24 06:23 4 mg ONCE ONE Administration ORDERS Category Date Time Status Acetone, Serum (Rapid) Stat Lab 11/02/24 06:32 Results CBC w/Auto Diff [Complete Blood Count Auto Diff] Stat Lab 11/02/24 06:32 Completed CMP [Comprehensive Metabolic Panel] Stat Lab 11/02/24 06:32 Results Lipase Stat Lab 11/02/24 06:32 Results Trop I [Troponin I] Stat Lab 11/02/24 06:32 Results Troponin I Q3H Lab 11/02/24 09:30 Ordered Troponin I Q3H Lab 11/02/24 12:30 Ordered VBG [Venous Blood Gas] Stat RT 11/02/24 06:32 Completed ECG Request Stat Y 11/02/24 06:22 Ordered Medical Decision Narrative: In summary, this 48-year-old male with comorbidities described in the HPI which may not be at goal therapy presents to the emergency department today with vomiting for 2 days, nonbloody, nonbilious. On initial evaluation patient is hemodynamically stable, afebrile, GCS 15, cardiopulmonary exam benign, no chest wall tenderness, abdominal exam benign with no areas of tenderness, rebound, or guarding, mucous membranes moist, good skin turgor. Differential diagnosis includes but is not limited to viral syndrome, electrolyte abnormality, dehydration, patient is on glipizide so he could have euglycemic DKA, also considered the possibility of more severe intra-abdominal pathology such as a surgical problem however he has no abdominal pain or tenderness and his abdominal exam is benign. I do not believe advanced imaging is indicated at this time. I did consider the possibility of atypical presentation of ACS though I have very low suspicion for this EKG and troponin were added to workup. Based on these concerns, I ordered serum labs, cardiac workup. ECG personally interpreted demonstrates sinus rhythm, rate 75, normal axis, normal AL and QTc, no STEMI. Patient received Zofran, IV fluids for treatment. Labs personally reviewed demonstrate mild leukocytosis WBC 12.2, no anemia, normal platelets, VBG with pH 7.44, VBG lactic normal at 2.0, no acidosis reassuring against DKA, CMP nonactionable with no electrolyte abnormalities reassuring against severe volume losses or electrolyte shifts, good kidney function, patient has previously had transaminitis which appears relatively stable today though his bilirubin is now somewhat elevated at 2.4. He has no evidence of jaundice on exam. Lipase normal at 84 reassuring against pancreatitis. Serum acetone negative further reassurance against DKA. Troponin undetectably low less than 0.01. On reassessment patient is tolerating oral intake. He is appropriate for discharge at this time. Zofran prescribed for outpatient management. Patient was given instructions on symptomatic management, follow up instructions, and return precautions for the emergency department. Patient indicated understanding and was discharged in stable condition. Critical Care Critical Care Time Critical Care Time: No
[2024-11-02 06:30] VITALS: BP 121/85; PULSE 93; O2SAT 97
[2024-11-02] MEDS: ONDANSETRON 4MG/2ML VIAL 4 MG IV (06:31)
[2024-11-02] MEDS: LACTATED RINGERS 1000ML 1,000 ML 999 ML IV (06:31)
[2024-11-02 06:45] VITALS: PULSE 79; O2SAT 96
--- NOTE | 2024-11-02 06:47 | ECG_ITS ---
APPROVED REPORT Exam: Resting ECG HR:75 bpm ECG Measurements Heart Rate 75 AXES WY 148 P 53 QRSd 79 QRS 56 QT 364 T 15 QTc 392 Conclusion SINUS RHYTHM Normal ECG Electronically signed by : ELVIA LEONE, 11/03/2024 06:31:36
[2024-11-02 06:53] LABS: VBG Base Excess -3.1 mmol/L (-2.4-2.3); VBG Oxygen Saturation 96.6 % (50-70); VBG PCO2 31.5 mmol/L (35-51); VBG PH 7.44 mmol/L (7.31-7.41); VBG PO2 82.8 mmol/L (28-40)
[2024-11-02 07:00] VITALS: BP 131/86; PULSE 73; O2SAT 94
[2024-11-02 07:10] LABS: Basophils # 0.1 K/mm3 (0-0.2); Basophils % 0.4 % (0.1-2.0); Eosinophils # 0.2 Kmm3 (0.0-0.4); Eosinophils % 1.4 % (0.1-12.0); Hematocrit 46.4 % (42.0-52.0); Hemoglobin 15.6 g/dL (14.1-18.0); Immature Granulocytes # 0.04 10^3uL; Immature Granulocytes % 0.3 %; Lymphocytes # 1.6 K/mm3 (0.7-4.5); Lymphocytes % 13.4 % (10-50); Mean Corpuscular HGB Conc 33.6 g/dL (31.8-35.4); Mean Corpuscular Hemoglobin 31.4 pg (27.0-31.2); Mean Corpuscular Volume 93.4 fl (80-94); Monocytes # 0.9 K/mm3 (0.1-1.0); Monocytes % 7.3 % (1.7-9.3); Neutrophils # 9.4 K/mm3 (1.8-7.8); Neutrophils % 77.2 % (37.0-80.0); Nucleated Red Blood Cells # 0 10^3/uL; Nucleated Red Blood Cells % 0 %; Platelet Count 290 K/mm3 (142-424); Red Blood Count 4.97 M/mm3 (4.60-6.20); Red Cell Distribution Width 13.2 % (11.5-17.5); Red Cell Distribution Width-SD 45.1 fL; White Blood Count 12.2 K/mm3 (4.8-10.8)
[2024-11-02 07:18] LABS: Acetone, Serum (Rapid) None Detected (None Detect)
[2024-11-02 07:21] LABS: Albumin Level 4.5 g/dl (3.5-5.0); Chloride 104 mmol/L (98-107); Potassium 3.8 mmoL/L (3.5-5.1); Sodium 139 mmol/L (136-145)
[2024-11-02 07:24] LABS: Alanine Aminotransferase 147 U/L (12-78); Albumin/Globulin Ratio 1.4 (1.1-1.8); Alkaline Phosphatase 91 U/L (38-126); Anion Gap 13.8 mEq/L (5-15); Aspartate Amino Transferase 117 U/L (17-59); Bilirubin,Total 2.4 mg/dl (0.2-1.3); Blood Urea Nitrogen 16 mg/dl (9-20); Carbon Dioxide 25 mmol/L (22.0-30.0); Creatinine Clearance Estimated 165 mL/min (50-200); Estimated Glomerular Filt Rate 80 ml/min (>60); GFR (African American) 97 ML/MIN (>60); Globulin 3.2 g/dL (1.3-3.2); Lipase 84 U/L (23-300); Total Protein,Serum 7.7 g/dl (6.3-8.2)
[2024-11-02 07:25] LABS: Calcium 9.3 mg/dl (8.4-10.2); Glucose 218 mg/dl (74-100)
[2024-11-02 07:30] VITALS: BP 128/79; PULSE 68; O2SAT 95
[2024-11-02 07:37] LABS: Troponin I < 0.01 ng/ml (0.00-0.034)
[2024-11-02 07:38] VITALS: BP 128/79; PULSE 72; RESP 18; TEMP 36.7; O2SAT 95
== END 2024-11-02 07:50 | disposition home or self-care (01) ==
PROVIDERS: Emergency Provider Emergency Medicine; PCP Family Medicine
DX: R11.2 Nausea with vomiting, unspecified (principal); E80.6 Other disorders of bilirubin metabolism; E11.9 Type 2 diabetes mellitus without complications; Z79.84 Long term (current) use of oral hypoglycemic drugs
CPT/HCPCS: 80053; 82009; 82803; 83690; 84484; 85025; 93005; 96361; 96374; 99284; J2405; J7120

== ENCOUNTER 2024-11-06 08:55 | Outpatient (CLI) | payer OTHER, SELFPAY ==
[2024-11-06 19:16] LABS: Alanine Aminotransferase 59 U/L (12-78); Albumin Level 4.1 g/dl (3.5-5.0); Albumin/Globulin Ratio 1.5 (1.1-1.8); Alkaline Phosphatase 94 U/L (38-126); Anion Gap 12.5 mEq/L (5-15); Aspartate Amino Transferase 36 U/L (17-59); Bilirubin,Total 1.6 mg/dl (0.2-1.3); Blood Urea Nitrogen 30 mg/dl (9-20); Calcium 9.5 mg/dl (8.4-10.2); Carbon Dioxide 24 mmol/L (22.0-30.0); Chloride 102 mmol/L (98-107); Estimated Glomerular Filt Rate 41 ml/min (>60); GFR (African American) 49 ML/MIN (>60); Globulin 2.7 g/dL (1.3-3.2); Glucose 163 mg/dl (74-100); Potassium 3.5 mmoL/L (3.5-5.1); Sodium 135 mmol/L (136-145); Total Protein,Serum 6.8 g/dl (6.3-8.2)
== END 2024-11-06 23:59 | disposition home or self-care (01) ==
LOC: LAB.DROPOF 11-07 13:16
PROVIDERS: PCP Nurse Practitioner Family; Visit Provider Nurse Practitioner Family
DX: E80.6 Other disorders of bilirubin metabolism (principal); R11.2 Nausea with vomiting, unspecified
CPT/HCPCS: 80053

== ENCOUNTER 2024-11-20 08:57 | Outpatient (POV) | payer OTHER, SELFPAY ==
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
[2024-11-20 09:54] VITALS: BP 121/71; PULSE 74; RESP 12; O2SAT 97; BMI 37.8
== END 2024-11-20 23:59 | disposition home or self-care (01) ==
PROVIDERS: PCP Family Medicine; Visit Provider Nurse Practitioner Family
DX: M47.26 Other spondylosis with radiculopathy, lumbar region (principal); Z79.1 Long term (current) use of non-steroidal anti-inflammatories (NSAID); Z79.899 Other long term (current) drug therapy
CPT/HCPCS: 99212; G0463

== ENCOUNTER 2025-02-16 09:52 | Outpatient (CLI) | payer OTHER, SELFPAY ==
[2025-02-16 15:33] LABS: Hematocrit 45.6 % (42.0-52.0); Hemoglobin 15.1 g/dL (14.1-18.0); Immature Granulocytes % 0.2 %; Mean Corpuscular HGB Conc 33.1 g/dL (31.8-35.4); Mean Corpuscular Hemoglobin 31.2 pg (27.0-31.2); Mean Corpuscular Volume 94.2 fl (80-94); Nucleated Red Blood Cells % 0 %; Platelet Count 262 K/mm3 (142-424); Red Blood Count 4.84 M/mm3 (4.60-6.20); Red Cell Distribution Width-SD 44.0 fL; White Blood Count 8.5 K/mm3 (4.8-10.8)
[2025-02-16 18:10] LABS: Alanine Aminotransferase 139 U/L (12-78); Albumin Level 4.4 g/dl (3.5-5.0); Albumin/Globulin Ratio 1.6 (1.1-1.8); Alkaline Phosphatase 91 U/L (38-126); Anion Gap 12.3 mEq/L (5-15); Aspartate Amino Transferase 84 U/L (17-59); Bilirubin,Total 1.0 mg/dl (0.2-1.3); Blood Urea Nitrogen 10 mg/dl (9-20); Calcium 9.1 mg/dl (8.4-10.2); Carbon Dioxide 24 mmol/L (22.0-30.0); Chloride 104 mmol/L (98-107); Cholesterol 170 mg/dl (140-200); Creatinine,Serum 0.80 mg/dl (0.66-1.25); Estimated Glomerular Filt Rate 103 ml/min (>60); GFR (African American) 125 ML/MIN (>60); Globulin 2.7 g/dL (1.3-3.2); Glucose 154 mg/dl (74-100); HDL Cholesterol 35 mg/dl (40-60); Potassium 4.3 mmoL/L (3.5-5.1); Sodium 136 mmol/L (136-145); Total Protein,Serum 7.1 g/dl (6.3-8.2); Triglycerides 151 mg/dl (30-150)
[2025-02-16 18:24] LABS: Hemoglobin A1C 7.1 % (4.0-6.0)
[2025-02-16 18:26] LABS: 25-OH Vitamin D, Total 52.6 ng/mL (30-100)
[2025-02-16 18:41] LABS: Thyroid Stimulating Hormone 1.52 uIU/mL (0.465-4.68)
[2025-02-16 19:01] LABS: Vitamin B12 303 pg/mL (239-931)
== END 2025-02-16 23:59 ==
LOC: LAB.DROPOF 02-17 10:24
PROVIDERS: PCP Nurse Practitioner; Visit Provider Nurse Practitioner
DX: E55.9 Vitamin D deficiency, unspecified (principal); I10 Essential (primary) hypertension; E78.5 Hyperlipidemia, unspecified; E11.9 Type 2 diabetes mellitus without complications; E66.9 Obesity, unspecified
CPT/HCPCS: 80053; 80061; 82306; 82607; 83036; 84443; 85025

== ENCOUNTER 2025-02-19 15:10 | Outpatient (CLI) | payer OTHER, SELFPAY | END 2025-02-19 23:59 | disposition home or self-care (01) | LOC: LAB.DROPOF 15:10 | PROVIDERS: PCP Nurse Practitioner; Visit Provider Nurse Practitioner | DX: I10 Essential (primary) hypertension (principal) | CPT/HCPCS: 82043; 82570 ==

== ENCOUNTER 2025-03-05 11:00 | Outpatient (CLI) | payer OTHER, SELFPAY ==
[2025-03-05 14:56] LABS: Coronavirus 19, PCR Not Detected (NotDetected); Influenza A, PCR Not Detected (NotDetected); Influenza B, PCR Not Detected (NotDetected)
--- OUTSIDE RECORDS SUMMARY | 2025-03-06 12:03 | XMS_ITS | Clinical Summary ---
Author Organization [facility] , [facility] Address [address] [place] [address] Phone Care Team Providers Care Body Maker Name Role Phone Matias Chester Unavailable Unavailable NEMO RODRIGUEZ, HAYDE GONZALEZ Primary Care Provider [phone] Deepthi RODRIGUEZ, Bharath Unavailable [phone] Reason for Visit and Chief Complaint Epidural Steroid Injection Problems Includes: Problems addressed during this encounter and other active Problems All Visits Onset Date Resolved Date Provider Condition S tatus Lower Back Pain 07/30/2023 Bharath charles MD Active Last Documented On 4 8:46AM ; [facility] Plan of Treatment No Plan of Treatment Recorded Assessments Includes: Assessments from this encounter No Assessments Recorded Medical Equipment - Implanted Devices Includes: Current Devices No Medical Equipment Recorded Medications Includes: Medications discussed during this encounter and other current Medications Current Medications (continue as prescribed) tiZANidine HCl 4 MG Oral Tablet 07/26/2023 Provider: Diagnosis: Last Documented On 4 8:46AM By China Workman [facility], [facility] Celecoxib 200 MG Oral Capsule 07/09/2023 Provider: Diagnosis: Last Documented On 4 8:46AM By China Crain ; [facility] Gabapentin 600 MG Oral Tablet 07/03/2023 Provider: HAYDE CHESTER MD Diagnosis: Last Documented On 4 8:46AM By [place] [facility] Lisinopril 5 MG Oral Tablet 06/25/2023 Provider: HAYDE CHESTER MD Diagnosis: Last Documented On 4 8:46AM By China NEALS, [facility] metFORMIN HCl 500 MG Oral Tablet 06/21/2023 Provider : Diagnosis: Last Documented On 4 8:47AM By China Crain ; [facility] Ezetimibe 10 MG Oral Tablet 05/01/2023 Provider: HAYDE CHESTER MD Diagnosis: Last Documented On 4 8:47AM By China Crain ; [facility], [facility] glipiZIDE ER 2.5 MG Oral Tab let Extended Release 24 Hour 05/01/2023 Provider: HAYDE CHESTER MD Diagnosis: Last Documented On 4 8:47AM By China Crain ; [facility] Medications Administered Includes: Administered Medications from this encounter No Administered Medications Recorded Results Includes: Results discussed during this encounter No Results Recorded For Specified Dates History of Present Illness Includes: History of Present Illness from this encounter No History of Present Illness Recorded Social History No Social History Recorded - Smoking Status Unknown Medical History Includes: Medical History addressed during this encounter No Medical History Recorded Family History Includes: Family History addressed during this encounter No Family History Recorded Review of Systems Includes: Review of Systems from this encounter No Review of Systems Recorded Mental Status Includes: Mental Status from this encounter No Mental Status Recorded Functional Status Includes: Functional Status from this encounter No Functional Status Recorded Physical Exam Includes: Physical Exam from this encounter No Physical Exam Recorded Allergies Includes: Active Allergies No Known Allergies Encounters Encounter Provider Location Date Check-In Time Check-Out Time Diagnosis Epidural Steroid Injection Darian Curtis CRNA 08/24/2023 12:27PM 11:59PM Insurance Includes: Active Insurance Policies Plan Name Member ID Group # Subscriber Relationship Effect devorah Dates 1 - [employer] [facility] [id number] Norman Awan Clinical Notes Includes: Clinical Notes from this encounter No Clinical Notes Recorded
--- OUTSIDE RECORDS SUMMARY | 2025-03-06 12:03 | XMS_ITS | Clinical Summary ---
Author Organization [facility] , [facility] Address [address] [place] [address] Phone Care Team Providers Care Calendering Machine Operator Name Role Phone Matias Chester Unavailable Unavailable NEMO RODRIGUEZ, HAYDE GONZALEZ Primary Care Provider [phone] Deepthi RODRIGUEZ, Bharath Unavailable [phone] Reason for Visit and Chief Complaint Epidural Steroid Injection Problems Includes: Problems addressed during this encounter and other active Problems All Visits Onset Date Resolved Date Provider Condition S tatus Lower Back Pain 07/30/2023 Bharath charles MD Active Last Documented On 4 8:46AM ; [facility] Plan of Treatment No Plan of Treatment Recorded Assessments Includes: Assessments from this encounter No Assessments Recorded Medical Equipment - Implanted Devices Includes: Current Devices No Medical Equipment Recorded Medications Includes: Medications discussed during this encounter and other current Medications Current Medications (continue as prescribed) tiZANidine HCl 4 MG Oral Tablet 07/26/2023 Provider: Diagnosis: Last Documented On 4 8:46AM By China Workman [facility], [facility] Celecoxib 200 MG Oral Capsule 07/09/2023 Provider: Diagnosis: Last Documented On 4 8:46AM By China Crain ; [facility], [facility] Gabapentin 600 MG Oral Tablet 07/03/2023 Provider: HAYDE CHESTER MD Diagnosis: Last Documented On 4 8:46AM By China [facility] Lisinopril 5 MG Oral Tablet 06/25/2023 Provider: HAYDE CHESTER MD Diagnosis: Last Documented On 4 8:46AM By China NEALS, [facility] metFORMIN HCl 500 MG Oral Tablet 06/21/2023 Provider : Diagnosis: Last Documented On 4 8:47AM By China Crain ; [facility], [facility] Ezetimibe 10 MG Oral Tablet 05/01/2023 Provider: HAYDE CHESTER MD Diagnosis: Last Documented On 4 8:47AM By China Crain ; [facility], [facility] glipiZIDE ER 2.5 MG Oral Tab let Extended Release 24 Hour 05/01/2023 Provider: HAYDE CHESTER MD Diagnosis: Last Documented On 4 8:47AM By China Crain ; [facility] Medications Administered Includes: Administered Medications from [...] Diagnosis Epidural Steroid Injection Darian Curtis CRNA [facility] 08/24/19 24 10:59AM 11:33AM Insurance Includes: Active Insurance Policies Plan Name Member ID Group # Subscriber Relationship Effect devorah Dates 1 - [employer] [facility] [id number] Norman Awan Clinical Notes Includes: Clinical Notes from this encounter No Clinical Notes Recorded
--- OUTSIDE RECORDS SUMMARY | 2025-03-06 12:03 | XMS_ITS | Clinical Summary ---
Author Organization [facility] , [facility] Address [address] [place] [address] Phone Care Team Providers Care Data Control Clerk Name Role Phone Matias Chester Unavailable Unavailable NEMO RODRIGUEZ, HAYDE GONZALEZ Primary Care Provider [phone] Deepthi RODRIGUEZ, Bharath Unavailable [phone] Reason for Visit and Chief Complaint The Chief Complaint is: Low back pain Problems Includes: Problems addressed during this encounter and other active Problems Current Visit Onset Date Resolved Date Provider Conditio n Status Lower Back Pain 07/30/2023 Bharath charles MD Active Last Documented On 4 8:46AM ; [facility] Plan of Treatment Pending Tests Order Diagnosis Results Due Ordering P rovider Therapy - Physical Therapy Lumbar Low back pain, unspecified 07/30/23 Bharath Lacey MD Last Documented On 4 12:13PM ; [facility] Instructions to patient Lose weight Last Documented On 4 8:56AM ; [facility] Assessments Includes: Assessments from this encounter Findings - Overweight - Last Documented On 07/30/2023 12:13PM ; [facility] Instructions Includes: Instructions from this encounter Instructions to patient Lose weight Last Documented On 4 8:56AM ; [facility] Medical Equipment - Implanted Devices Includes: Current Devices No Medical Equipment Recorded Medications Includes: Medications discussed during this encounter and other current Medications Current Medications (continue as prescribed) tiZANidine HCl 4 MG Oral Tablet 07/26/2023 Provider: Diagnosis: Last Documented On 4 8:46AM By China Lizer ; [facility], [facility] Celecoxib 200 MG Oral Capsule 07/09/2023 Provider: Diagnosis: Last Documented On 4 8:46AM By China Crain ; [facility] Gabapentin 600 MG Oral Tablet 07/03/2023 Provider: HAYDE CHESTER MD Diagnosis: Last Documented On 4 8:46AM By China Crain ; [facility] Lisinopril 5 MG Oral Tablet 06/25/2023 Provider: HAYDE CHESTER MD Diagnosis: Last Documented On 4 8:46AM By China Crain ; [facility] metFORMIN HCl 500 MG Oral Tablet 06/21/2023 Provider : Diagnosis: Last Documented On 4 8:47AM By China Crain ; [facility] Ezetimibe 10 MG Oral Tablet 05/01/2023 Provider: HAYDE CHESTER MD Diagnosis: Last Documented On 4 8:47AM By China Crain ; [facility] glipiZIDE ER 2.5 MG Oral Tab let Extended Release 24 Hour 05/01/2023 Provider: HAYDE CHESTER MD Diagnosis: Last Documented On 4 8:47AM By China Crain ; [facility] Medications Administered Includes: Administered Medications from this encounter No Administered Medications Recorded Vital Signs Includes: Vital Signs from this encounter Vital Name 07/30/2023 09:02A Height (in) 70 Weight (lb) 260 Body Mass Index 37.3 Body Surface Area 2.3 Note: ct Last Documented: On 07/30/2023 9:02AM ; [facility] Results Includes: Results discussed during this encounter No Results Recorded For Specified Dates History of Present Illness Includes: History of Present Illness from this encounter LAN Grimaldo is a 47 year old male. - Allergy list reviewed - Problem list reviewed - Medication list reviewed - Previous history of new onset pain Injury is not work related or an automotive accident - Pain is throbbing - Patient pain level from 1-10: 10 - Yes, previous treatment. Pain Management - History of Physical Therapy - History of Home Exercise - History of Chiropractic Medications used for this condition: This is a pleasant 47-year-old man seeing me for the 1st time today. In fact, he is new to [facility]. He is here sort of from a referral from Dr. Mayelin Kan who has a local pain management physician. He is here for evaluation of low back pain that radiates into his right more than his left leg and causes it to go numb from time to time. He notes it is all worse when it rains. He has a medical history of hypertension as well as borderline diabetes. He does not take a blood thinner. Social History Description Last Updated Exercising regularly 07/30/2023 Last Documented On 4 12:13PM ; [facility], [facility] Recent change in diet 07/30/2023 Last Documented On 4 12:13PM ; [facility] Tobacco non-user 07/30/2023 Last Documented On 4 12:13PM ; [facility] No caffeine use 07/30/2023 Last Documented On 4 12:13PM ; [facility] Not a current smoker. 07/30/2023 Last Documented On 4 12:13PM ; [facility] Not using alcohol 07/30/2023 Last Documented On 4 12:13PM ; [facility] Not using drugs 07/30/2023 Last Documented On 4 12:13PM ; [facility] Smoking Status Unknown Procedures and Surgical History Includes: Procedures from this encounter Procedures Code Diagnosis Performing Provider Service L ocation Service Date use of tobacco assessment performed 1000F Last Documented On 4 8:56AM ; [facility] review of medications documented 1160F Last Documented On 4 8:56AM ; [facility] an X-ray was performed 04/18/2023 LSpine @ [facility] [id number] Last Documented On 4 12:11PM ; [facility] an MRI was performed 2019 @ [facility] ~06/20/2023 LSpi ne @ [facility] [id number] Last Documented On 4 12:11PM ; [facility] Medical History Includes: Medical History addressed during this encounter Description Last Updated Past surgical history non-contributory 0 07/30/2023 Last Documented On 4 12:13PM ; [facility] History of diabetes mellitus 07/30/2023 Last Documented On 4 12:13PM ; [facility] History of Hypertension 07/30/2023 Last Documented On 4 12:13PM ; [facility] Family History Includes: Family History addressed during this encounter Description Last Updated Diabetes mellitus 07/30/2023 Last Documented On 4 12:13PM ; [facility] Review of Systems Includes: Review of Systems from this encounter Systemic: Not feeling tired, no recent weight loss, and no recent weight gain. Head: No headache and no sinus pain. Eyes: No vision problems, no Cataracts, no Glasses/Contacts, and no Glaucoma. Otolaryngeal: No hearing loss and no tinnitus. Cardiovascular: No chest pain or discomfort, no palpitations, no Hypertension, and no High Cholesterol. Pulmonary: No daytime asthma symptoms and no chronic cough. No wheezing. Gastrointestinal: No heartburn and no abdominal pain. No Indigestion, no Acid Reflux, no Peptic Ulcer, no GI Stomach Bleed, and no Ulcers. Endocrine: No hot flashes and no muscle weakness. Diabetes. No Hypothyroid and no Hyperthyroid. Hematologic: No easy bleeding, no tendency for easy bruising, and no Anemia. Musculoskeletal: No Arthritis. Lower back pain. No soft tissue swelling and no localized joint pain. Neurological: No dizziness, no convulsions, and no numbness. Psychological: No anxiety, no emotional lability, no depression, and no insomnia. Not crying for no reason. Skin: No dry skin. No Ulcers, no Scars, and no rash. Allergic and Immunologic: No complaint of seasonal allergic reaction. Mental Status Includes: Mental Status from this encounter Description No anxiety Functional Status Includes: Functional Status from this encounter No Functional Status Recorded Physical Exam Includes: Physical Exam from this encounter Allergies Includes: Active Allergies No Known Allergies Encounters Encounter Provider Location Date Check-In Time Check-Out Time Diagnosis Physician Specified Bharath charles MD [facility] 07/30/19 24 8:54AM 9:44AM Overweight Insurance Includes: Active Insurance Policies Plan Name Member ID Group # Subscriber Relationship Effect devorah Dates 1 - [employer]etna [facility] [id number] Norman Grimaldo Self Clinical Notes Includes: Clinical Notes from this encounter * Progress note Date Encounter Last Documented by 07/30/2023 Physician Specified Last deanna aguilar on 07/30/2023; 12:13 PM, Bharath Lacey MD; [facility] Active Problems & Conditions - Lower Back Pain Chief Complaint The Chief Complaint is: Low back pain. Referred Here Referred by Mayelin Kan APRN. History of Present Illness Norman Grimaldo is a 47 year old male. - Allergy list reviewed - Problem list reviewed - Medication list reviewed - Previous history of new onset pain Injury is not work related or an automotive accident - Pain is throbbing - Patient pain level from 1-10: 10 - Yes, previous treatment. Pain Management - History of Physical Therapy - History of Home Exercise - History of Chiropractic Medications used for this condition: This is a pleasant 47-year-old man seeing me for the 1st time today. In fact, he is new to [facility]. He is here sort of from a referral from Dr. Mayelin Kan who has a local pain management physician. He is here for evaluation of low back pain that radiates into his right more than his left leg and causes it to go numb from time to time. He notes it is all worse when it rains. He has a medical history of hypertension as well as borderline diabetes. He does not take a blood thinner. Current Medication - Celecoxib 200 MG Oral Capsule take as directed 30 days, 0 refills - Ezetimibe 10 MG Oral Tablet take as directed 90 days, 0 refills - Gabapentin 600 MG Oral Tablet take as directed 30 days, 0 refills - glipiZIDE ER 2.5 MG Oral Tablet Extended Release 24 Hour take as directed 90 days, 0 refills - Lisinopril 5 MG Oral Tablet take as directed 30 days, 0 refills - metFORMIN HCl 500 MG Oral Tablet take as directed 90 days, 0 refills - tiZANidine HCl 4 MG Oral Tablet take as directed 30 days, 0 refills Past Medical/Surgical History Diagnoses: Hypertension. Diabetes mellitus Past surgical history non-contributory. Social History Not a current smoker. Current diet: Recent change in diet. Caffeine use: No caffeine use. Tobacco use: Tobacco non-user. Alcohol: Not using alcohol. Drug Use: Not using drugs. Habits: Exercising regularly. Allergies - No Known Allergies Family History Diabetes mellitus Review Of Systems Systemic: Not feeling tired, no recent weight loss, and no recent weight gain. Head: No headache and no sinus pain. Eyes: No vision problems, no Cataracts, no Glasses/Contacts, and no Glaucoma. Otolaryngeal: No hearing loss and no tinnitus. Cardiovascular: No chest pain or discomfort, no palpitations, no Hypertension, and no High Cholesterol. Pulmonary: No daytime asthma symptoms and no chronic cough. No wheezing. Gastrointestinal: No heartburn and no abdominal pain. No Indigestion, no Acid Reflux, no Peptic Ulcer, no GI Stomach Bleed, and no Ulcers. Endocrine: No hot flashes and no muscle weakness. Diabetes. No Hypothyroid and no Hyperthyroid. Hematologic: No easy bleeding, no tendency for easy bruising, and no Anemia. Musculoskeletal: No Arthritis. Lower back pain. No soft tissue swelling and no localized joint pain. Neurological: No dizziness, no convulsions, and no numbness. Psychological: No anxiety, no emotional lability, no depression, and no insomnia. Not crying for no reason. Skin: No dry skin. No Ulcers, no Scars, and no rash. Allergic and Immunologic: No complaint of seasonal allergic reaction. Physical Findings - Vitals taken 07/30/2023 09:[address] Height 70 in Weight 260 lbs Body Mass Index 37.3 kg/m2 Body Surface Area 2.3 m2 General: Alert and Oriented A&Ox3 Focused Musculoskeletal Exam of the Spine: Patient is able to ambulate in the room without assistive device No focal tenderness to palpation in the Lumbar Spine Motor HF KE AD EHL GS Right 5/5 5/5 5/5 5/5 5/5 Left 5/5 5/5 5/5 5/5 5/5 Sensation L2 L3 L4 L5 S1 Right 2 2 2 2 2 Left 2 2 2 2 2 Patellar reflex is 2+ bilaterally Achilles reflex is 2+ bilaterally No ankle clonus Symmetric, palpable posterior tibialis pulse bilaterally Tests MRI lumbar spine There is a right paracentral disc protrusion with a foraminal component at L5-S1 that is causing some right lateral recess and right foraminal stenosis User Defined 5 This is a 47-year-old man with a right L5-S1 foraminal and paracentral disc protrusion It was nice meeting Norman in the office. I told him that I would like him to undergo a dedicated course of lumbar spine physical therapy. We will also get him set up for an L5-S1 epidural steroid injection. He can follow up with us after to discuss the results and review further treatment options Assessment - Overweight Previous Tests Imaging: X-Ray: An X-ray was performed 04/18/2023 [facility] @ [facility]. MRI Scan: An MRI was performed 2019 @ [facility] 06/20/2023 [facility] @ [facility]. Counseling/Education - Lose weight Plan StartCited - Low back pain, unspecified Therapy/Physical Therapy: Lumbar Instructions: See PT order attached EndCited Practice Management Use of tobacco assessment performed Review of medications documented. Care Team - Matias Chester Notes This dictation was done with voice recognition software and may contain errors and omissions.
--- OUTSIDE RECORDS SUMMARY | 2025-03-06 12:03 | XMS_ITS ---
Care Plan - [facility], [facility] Created on: March 06, 2025 Norman Grimaldo : 1975 Sex: Male Author Organization [facility] , [facility] Address [address] [place] [address] Phone Care Team Providers Care Software Design Manager Name Role Phone Matias Laboy Unavailable Unavailable NEMO RODRIGUEZ, HAYDE GONZALEZ Primary Care Provider [phone] Deepthi RODRIGUEZ, [facility] Unavailable [phone]
--- OUTSIDE RECORDS SUMMARY | 2025-03-06 12:03 | XMS_ITS ---
Author Organization [facility] Address [address] [place] [address] Phone Care Team Providers Care It Business Process Architect Name Role Phone Matias Chester Unavailable Unavailable NEMO RODRIGUEZ, HAYDE GONZALEZ Primary Care Provider [phone] Deepthi RODRIGUEZ, Bharath Unavailable [phone] Problems Includes: Active, inactive, and resolved Problems All Visits Onset Date Resolved Date Provider Condition S tatus Lower Back Pain 07/30/2023 Bharath charles MD Active Last Documented On 4 8:46AM ; [facility], [facility] Plan of Treatment Instructions to patient Lose weight Last Documented On 4 8:30AM ; [facility], [facility] Lose weight Last Documented On 4 8:56AM ; [facility] Assessments Includes: Assessments for all patient encounters Findings Encounter Date Overweight Follow Up with Bharath Cardoza MD 11/05/2023 Last Documented On 4 1:07PM ; [facility] Overweight Physician Specified with Bharath Lacey MD 07/30/2023 Last Documented On 4 12:13PM ; [facility] Instructions Includes: Instructions for all patient encounters Instructions to patient Lose weight Last Documented On 4 8:30AM ; [facility] Lose weight Last Documented On 4 8:56AM ; [facility] Medical Equipment - Implanted Devices Includes: Current and historical Devices No Medical Equipment Recorded Medications Includes: Current and historical Medications Current Medications (continue as prescribed) tiZANidine HCl 4 MG Oral Tablet 07/26/2023 Provider: Diagnosis: Last Documented On 4 8:46AM By China Crain ; [facility], [facility] Celecoxib 200 MG Oral Capsule 07/09/2023 Provider: Diagnosis: Last Documented On 4 8:46AM By China Crain ; [facility], [facility] Gabapentin 600 MG Oral Tablet 07/03/2023 Provider: HAYDE CHESTER MD Diagnosis: Last Documented On 4 8:46AM By China Crain ; [facility], [facility] Lisinopril 5 MG Oral Tablet 06/25/2023 Provider: HAYDE CHESTER MD Diagnosis: Last Documented On 4 8:46AM By China Crain ; [facility], [facility] metFORMIN HCl 500 MG Oral Tablet 06/21/2023 Provider : Diagnosis: Last Documented On 4 8:47AM By China Crain ; [facility], [facility] Ezetimibe 10 MG Oral Tablet 05/01/2023 Provider: HAYDE CHESTER MD Diagnosis: Last Documented On 4 8:47AM By China Crain ; [facility], [facility] glipiZIDE ER 2.5 MG Oral Tab let Extended Release 24 Hour 05/01/2023 Provider: HAYDE CHESTER MD Diagnosis: Last Documented On 4 8:47AM By China Crain ; [facility], [facility] Medications Administered Includes: Administered Medications in patient's chart No Administered Medications Recorded Results Includes: Results from 03/06/2024 through 03/06/2025 No Results Recorded For Specified Dates History of Present Illness History of Present Illness not supported for this document type No History of Present Illness Recorded Social History Description Last Updated Exercising regularly 07/30/2023 Last Documented On 4 12:13PM ; [facility], [facility] Recent change in diet 07/30/2023 Last Documented On 4 12:13PM ; [facility], [facility] Tobacco non-user 07/30/2023 Last Documented On 4 12:13PM ; [facility] No caffeine use 07/30/2023 Last Documented On 4 12:13PM ; [facility] Not a current smoker. 07/30/2023 Last Documented On 4 12:13PM ; [facility], [facility] Not using alcohol 07/30/2023 Last Documented On 4 12:13PM ; [facility], [facility] Not using drugs 07/30/2023 Last Documented On 4 12:13PM ; [facility], [facility] Smoking Status Unknown Medical History Includes: Medical History in patient's chart Description Last Updated Past surgical history non-contributory 0 07/30/2023 Last Documented On 4 12:13PM ; [facility], [facility] History of diabetes mellitus 07/30/2023 Last Documented On 4 12:13PM ; [facility], [facility] History of Hypertension 07/30/2023 Last Documented On 4 12:13PM ; [facility], [facility] Family History Includes: Family History in patient's chart Description Last Updated Diabetes mellitus 07/30/2023 Last Documented On 4 12:13PM ; [facility], [facility] Review of Systems Review of Systems not supported for this document type No Review of Systems Recorded Mental Status Description No anxiety Functional Status No Functional Status Recorded Physical Exam Physical Exam not supported for this document type No Physical Exam Recorded Allergies Includes: Active, inactive, and resolved Allergies No Known Allergies Insurance Includes: Active Insurance Policies Plan Name Member ID Group # Subscriber Relationship Effect devorah Dates 1 - [employer]na [facility] [id number] Norman Awan Clinical Notes Includes: Signed Clinical Notes starting from 05/18/2022 No Clinical Notes Recorded
--- OUTSIDE RECORDS SUMMARY | 2025-03-06 12:03 | XMS_ITS | Clinical Summary ---
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 Status Lower Back Pain 07/30/2023 Bharath charles MD Active Last Documented On 4 8:46AM ; [facility] Plan of Treatment Instructions to patient Lose weight Last Documented On 4 8:30AM ; [facility], [facility] Assessments Includes: Assessments from this encounter Findings - Overweight - Last Documented On 11/05/2023 1:07PM ; [facility], [facility] Instructions Includes: Instructions from this encounter Instructions to patient Lose weight Last Documented On 4 8:30AM ; [facility] Medical Equipment - Implanted Devices Includes: Current Devices No Medical Equipment Recorded Medications Includes: Medications discussed during this encounter and other current Medications Current Medications (continue as prescribed) tiZANidine HCl 4 MG Oral Tablet 07/26/2023 Provider: Diagnosis: Last Documented On 4 8:46AM By China Crain ; [facility] Celecoxib 200 MG Oral Capsule 07/09/2023 Provider: Diagnosis: Last Documented On 4 8:46AM By China Crain ; [facility], [facility] Gabapentin 600 MG Oral Tablet 07/03/2023 Provider: HAYDE CHESTER MD Diagnosis: Last Documented On 4 8:46AM By China Crain ; [facility] Lisinopril 5 MG Oral Tablet 06/25/2023 Provider: HAYDE CHESTER MD Diagnosis: Last Documented On 4 8:46AM By China Crain ; [facility], [facility] metFORMIN HCl 500 MG Oral Tablet 06/21/2023 Provider : Diagnosis: Last Documented On 4 8:47AM By China Crain ; [facility] Ezetimibe 10 MG Oral Tablet 05/01/2023 Provider: HAYDE CHESTER MD Diagnosis: Last Documented On 4 8:47AM By China Crain ; [facility] glipiZIDE ER 2.5 MG Oral Tab let Extended Release 24 Hour 05/01/2023 Provider: HAYDE CHESTER MD Diagnosis: Last Documented On 4 8:47AM By China Crain ; [facility], [facility] Medications Administered Includes: Administered Medications from this encounter No Administered Medications Recorded Vital Signs Includes: Vital Signs from this encounter Vital Name 11/05/2023 08:37A Height (in) 70 Weight (lb) 269.2 Body Mass Index 38.6 Body Surface Area 2.4 Note: HL Last Documented: On 11/05/2023 8:37AM ; [facility], [facility] Results Includes: Results discussed during this encounter [...] throbbing - Patient pain level from 1-10: 2 - Yes, previous treatment. Pain Management - History of Physical Therapy - History of Home Exercise - History of Chiropractic - History of Injections 08/24/2023 L5-S1 AKBAR - - Review of medications documented Medications used for this condition: This is a 47-year-old man following up after undergoing an L5-S1 epidural steroid injection. He said that for about 3-4 days his symptoms were basically 100% resolved. Since then, he says I symptoms have remained to be a lot better and he has really no longer having that is severe right leg pain and right leg cramping. Social History Description Last Updated Exercising regularly 07/30/2023 Last Documented On 4 8:30AM ; [facility] Recent change in diet 07/30/2023 Last Documented On 4 8:30AM ; [facility], [facility] Tobacco non-user 07/30/2023 Last Documented On 4 8:30AM ; [facility], [facility] No caffeine use 07/30/2023 Last Documented On 4 8:30AM ; [facility], [facility] Not a current smoker. 07/30/2023 Last Documented On 4 8:30AM ; [facility] Not using alcohol 07/30/2023 Last Documented On 4 8:30AM ; [facility], [facility] Not using drugs 07/30/2023 Last Documented On 4 8:30AM ; [facility], [facility] Smoking Status Unknown Procedures and Surgical History Includes: Procedures from this encounter Procedures Code Diagnosis Performing Provider Service L ocation Service Date use of tobacco assessment performed 1000F Last Documented On 4 8:30AM ; [facility], [facility] review of medications documented 1160F Last Documented On 4 8:30AM ; [facility], [facility] an X-ray was performed 04/18/2023 LSpine @ [facility] [id number] Last Documented On 4 8:30AM ; [facility] an MRI was performed 2019 @ [facility] ~06/20/2023 LSpi ne @ [facility] [id number] Last Documented On 4 8:30AM ; [facility], [facility] Medical History Includes: Medical History addressed during this encounter Description Last Updated Past surgical history non-contributory 0 07/30/2023 Last Documented On 4 8:30AM ; [facility] History of diabetes mellitus 07/30/2023 Last Documented On 4 8:30AM ; [facility] History of Hypertension 07/30/2023 Last Documented On 4 8:30AM ; [facility] Family History Includes: Family History addressed during this encounter Description Last Updated Diabetes mellitus 07/30/2023 Last Documented On 4 8:30AM ; [facility] Review of Systems Includes: Review of Systems [...] and no abdominal pain. No Indigestion, no Peptic Ulcer, no GI Stomach Bleed, no Ulcers, and no Acid Reflux. Endocrine: No hot flashes and no muscle [...] Location Date Check-In Time Check-Out Time Diagnosis Follow Up Bharath max MD [facility] 4 8:27AM 8:43AM Overweight Insurance Includes: Active Insurance Policies Plan Name Member ID Group # Subscriber Relationship Effect devorah Dates - [facility] [id number] Norman Grimaldo Self Clinical Notes Includes: Clinical Notes from this encounter * Progress note Date Encounter Last Documented by 11/05/2023 Follow Up Last documented on 11/05/2023; 1:07 PM, Bharath Cardoza MD; [facility] Active Problems & Conditions - Lower [...] throbbing - Patient pain level from 1-10: 2 - Yes, previous treatment. Pain Management - History of Physical Therapy - History of Home Exercise - History of Chiropractic - History of Injections 08/24/2023 L5-S1 AKBAR - - Review of medications documented Medications used for this condition: This is a 47-year-old man following up after undergoing an L5-S1 epidural steroid injection. He said that for about 3-4 days his symptoms were basically 100% resolved. Since then, he says I symptoms have remained to be a lot better and he has really no longer having that is severe right leg pain and right leg cramping. Current Medication - Celecoxib 200 MG Oral [...] and no abdominal pain. No Indigestion, no Peptic Ulcer, no GI Stomach Bleed, no Ulcers, and no Acid Reflux. Endocrine: No hot flashes and no muscle [...] allergic reaction. Physical Findings - Vitals taken 11/05/2023 08:37 am HL Height 70 in Weight 269 lbs 3.2 oz Body Mass Index 38.6 kg/m2 Body Surface Area 2.4 m2 General: Alert and Oriented A&Ox3 Focused [...] clonus Symmetric, palpable posterior tibialis pulse bilaterally User Defined 5 This is a 47-year-old man with a right foraminal L5-S1 disc herniation with resolving right lumbar radiculopathy. It was nice seeing Norman. I told him I was happy that his symptoms have gotten better. Since he is basically asymptomatic at this time we will say that he can follow up with us on an as-needed basis. Assessment - Overweight Previous Tests Imaging: Intravascular Ultrasound (Coronary Vessel/Graft): An X-ray was performed 04/18/2023 Pearl @ [facility]. CT Scan Lower Extremity Foot: An MRI was performed 2019 @ [facility] 06/20/2023 Pearl @ [facility]. Counseling/Education - Tobacco non-user - Use of tobacco assessment performed - Lose weight Practice Management Use of tobacco assessment performed Review of medications documented. Care Team - Matias Chester Notes This dictation was done with voice recognition software and may contain errors and omissions.
== END 2025-03-05 23:59 ==
LOC: LAB.DROPOF 03-06 12:01
PROVIDERS: PCP Nurse Practitioner Family; Visit Provider Nurse Practitioner Family
DX: R11.2 Nausea with vomiting, unspecified (principal); R69 Illness, unspecified
CPT/HCPCS: 87636

== ENCOUNTER 2025-05-06 08:16 | Outpatient (CLI) | payer OTHER, SELFPAY ==
[2025-05-06 16:50] LABS: Hematocrit 48.3 % (42.0-52.0); Hemoglobin 15.2 g/dL (14.1-18.0); Immature Granulocytes % 0.3 %; Mean Corpuscular HGB Conc 31.5 g/dL (31.8-35.4); Mean Corpuscular Hemoglobin 30.0 pg (27.0-31.2); Mean Corpuscular Volume 95.3 fl (80-94); Nucleated Red Blood Cells % 0 %; Platelet Count 287 K/mm3 (142-424); Red Blood Count 5.07 M/mm3 (4.60-6.20); Red Cell Distribution Width-SD 44.1 fL; White Blood Count 10.2 K/mm3 (4.8-10.8)
[2025-05-06 17:20] LABS: Alanine Aminotransferase 91 U/L (12-78); Albumin Level 4.5 g/dl (3.5-5.0); Albumin/Globulin Ratio 1.6 (1.1-1.8); Alkaline Phosphatase 87 U/L (38-126); Anion Gap 11.4 mEq/L (5-15); Aspartate Amino Transferase 55 U/L (17-59); Bilirubin,Total 1.1 mg/dl (0.2-1.3); Blood Urea Nitrogen 12 mg/dl (9-20); Calcium 9.6 mg/dl (8.4-10.2); Carbon Dioxide 24 mmol/L (22.0-30.0); Chloride 100 mmol/L (98-107); Cholesterol 164 mg/dl (140-200); Creatinine,Serum 0.90 mg/dl (0.66-1.25); Estimated Glomerular Filt Rate 90 ml/min (>60); GFR (African American) 109 ML/MIN (>60); Globulin 2.9 g/dL (1.3-3.2); Glucose 121 mg/dl (74-100); HDL Cholesterol 38 mg/dl (40-60); Potassium 4.4 mmoL/L (3.5-5.1); Sodium 131 mmol/L (136-145); Total Protein,Serum 7.4 g/dl (6.3-8.2); Triglycerides 134 mg/dl (30-150)
[2025-05-06 18:09] LABS: Hepatitis C Ab Qual. W/ RFX NEGATIVE (Negative)
[2025-05-08 08:16] LABS: Hepatitis B Surface Antigen Negative (Negative)
== END 2025-05-06 23:59 ==
LOC: LAB.DROPOF 05-08 08:17
PROVIDERS: PCP Family Medicine; Visit Provider Family Medicine
DX: I10 Essential (primary) hypertension (principal); E11.9 Type 2 diabetes mellitus without complications; E66.9 Obesity, unspecified; Z11.59 Encounter for screening for other viral diseases
CPT/HCPCS: 80053; 80061; 85025; 86803; 87340; 87389

== ENCOUNTER 2025-05-21 12:18 | Outpatient (CLI) | payer OTHER, SELFPAY | END 2025-05-21 23:59 | disposition home or self-care (01) | LOC: LAB.DROPOF 05-22 10:42 | PROVIDERS: PCP Family Medicine; Visit Provider Family Medicine | DX: E11.9 Type 2 diabetes mellitus without complications (principal); E66.9 Obesity, unspecified; I10 Essential (primary) hypertension | CPT/HCPCS: 82043; 82570 ==